=== PATIENT | female | born 1955 | race Caucasian/White ===

== ENCOUNTER → 2016-07-15 | Outpatient (CLI) | payer MEDICARE, MEDICAID | LOC: RAD 12:28 | PROVIDERS: ATTEND Urology | DX: R31.0 Gross hematuria (principal) | CPT/HCPCS: 74176 ==

== ENCOUNTER → 2016-07-20 | Outpatient (CLI) | payer MEDICARE, MEDICAID ==
[2016-07-20 08:07] LABS: ABSOLUTE BASOPHILS # (AUTO) 0.1 10^3/uL (0.0-0.2); ABSOLUTE EOSINOPHILS # (AUTO) 0.1 10^3/uL (0.0-0.6); ABSOLUTE LYMPHOCYTES (AUTO) 1.8 10^3/uL (0.5-4.7); ABSOLUTE MONOCYTES (AUTO) 0.7 10^3/uL (0.1-1.4); ABSOLUTE NEUT (AUTO) 3.5 10^3/uL (1.7-8.2); BASOPHILS % (AUTO) 0.9 % (0-2); EOSINOPHILS % (AUTO) 1.9 % (0-6); HEMOGLOBIN 14.6 g/dL (12.0-15.5); HGB HCT DIFFERENCE 0.8; LYMPHOCYTES % (AUTO) 28.9 % (13-45); MEAN CORPUSCULAR HEMOGLOBIN 29.3 pg (27.0-33.4); MEAN CORPUSCULAR HGB CONC 33.8 g/dL (32.0-36.0); MEAN CORPUSCULAR VOLUME 87 fl (80-97); MONOCYTES % (AUTO) 11.2 % (3-13); RED BLOOD COUNT 4.97 10^6/uL (3.72-5.28); SEGMENTED NEUTROPHILS % (AUTO) 57.1 % (42-78); WHITE BLOOD COUNT 6.1 10^3/uL (4.0-10.5)
[2016-07-20 08:27] LABS: ALANINE AMINOTRANSFERASE 42 U/L (9-52); ALBUMIN 4.2 g/dL (3.5-5.0); ALKALINE PHOSPHATASE 85 U/L (38-126); ANION GAP 12 (5-19); ASPARTATE AMINO TRANSFERASE 28 U/L (14-36); BILIRUBIN,DIRECT 0.4 mg/dL (0.0-0.4); BILIRUBIN,TOTAL 0.7 mg/dL (0.2-1.3); BLOOD UREA NITROGEN 20 mg/dL (7-20); CALCIUM 10.1 mg/dL (8.4-10.2); CARBON DIOXIDE 29 mmol/L (22-30); CHLORIDE 105 mmol/L (98-107); CHOLESTEROL 168.26 mg/dL (0-200); CREATININE RESULT 0.72 mg/dL (0.52-1.25); Direct HDL 54 mg/dL (>40); GLUCOSE 98 mg/dL (75-110); POTASSIUM 4.7 mmol/L (3.6-5.0); SODIUM 146.1 mmol/L (137-145); TOTAL PROTEIN 6.8 g/dL (6.3-8.2); TRIGLYCERIDES 62 mg/dL (<150)
[2016-07-20 08:38] LABS: DIRECT LDL 94 mg/dL (<100)
== END ==
LOC: OD 07:16
PROVIDERS: ATTEND Internal Medicine
DX: E78.5 Hyperlipidemia, unspecified (principal); I10 Essential (primary) hypertension; J44.9 Chronic obstructive pulmonary disease, unspecified; R53.83 Other fatigue
CPT/HCPCS: 36415; 80053; 80061; 84443; 85025

== ENCOUNTER → 2016-07-28 | Outpatient (CLI) | payer MEDICARE, MEDICAID | LOC: OD 16:15 | PROVIDERS: ATTEND Internal Medicine Pulmonary Disease | DX: J44.9 Chronic obstructive pulmonary disease, unspecified (principal) | CPT/HCPCS: 71020 ==

== ENCOUNTER 2016-08-01 21:29 | Emergency (ER) | payer MEDICARE, MEDICAID ==
[2016-08-01] MEDS ORDERED: IPRATROPIUM/ALBUTEROL 0.5-2.5 MG/3 ML AMPUL NEB ONE (22:51)
--- NOTE | 2016-08-01 23:09 | ER Document Report ---
ED General - General Chief Complaint: Urinary Problem Stated Complaint: BREATHING DIFFICULTY,CONGESTION,URINARY RETENTION Time Seen by Provider: 08/01/16 22:30 Notes: Patient is a 61-year-old female who presents with complaint of difficulty urinating. Patient says approximately 3 and half weeks ago she had hematuria. She went to urgent care. They referred her to urologist. When she saw Dr. Gomez, urologist, her hematuria cleared but she still having symptoms of urinary urgency. There is no signs of infection or blood in her urine. He said different CT scan. CT scans performed on July 15 was read as normal. She 's was to follow-up with him on Tuesday and he is going to inject the dye into her urine and do further testing to figure out why she's having her symptoms. Patient currently says she feels the for bladder is full and she is not able to urinate much except for small amounts that time. She also feels as if she is becoming swollen the abdomen. She also has history of chronic lung disease with COPD. She's on 4 L of oxygen at home. She was recently placed on steroids by tab machine operator and told she has early pneumonia and was started on doxycycline and another antibiotic. She feels less if she is retaining fluid. She's currently on Lasix 10 mg every morning. TRAVEL OUTSIDE OF THE [place] IN LAST 30 DAYS: No - Related Data Allergies/Adverse Reactions: asparaginase [Asparaginase] Allergy (Severe, Verified 04/25/14 14:17) throat swells cefaclor [From Ceclor] Allergy (Severe, Verified 04/25/14 14:17) hives,swell levofloxacin [From Levaquin] Allergy (Severe, Verified 04/25/14 14:17) bakers cyst behind knee nickel [Nickel] Allergy (Severe, Verified 04/25/14 14:17) itch,swell cephalexin monohydrate [From Keflex] Allergy (Verified 06/08/13 13:55) codeine [Codeine] Allergy (Verified 06/08/13 13:55) fluticasone propionate [From Advair Diskus] Allergy (Verified 06/08/13 13:55) morphine [Morphine] Allergy (Verified 06/08/13 13:55) Penicillins Allergy (Verified 06/08/13 13:55) salmeterol xinafoate [From Advair Diskus] Allergy (Verified 06/08/13 13:55) Sulfa (Sulfonamide Antibiotics) Allergy (Verified 06/08/13 13:55) z sloane Allergy (Severe, Uncoded 04/25/14 14:17) throat swells Past Medical History - Social History Smoking Status: Former Smoker Frequency of alcohol use: None Drug Abuse: None Family History: None - Past Medical History Cardiac Medical History: Reports: Hx Congestive Heart Failure Denies: Hx Coronary Artery Disease, Hx Heart Attack, Hx Hypertension Pulmonary Medical History: Reports: Hx Asthma, Hx Bronchitis, Hx COPD - O2 3 liters daily, Hx Pneumonia Neurological Medical History: Denies: Hx Cerebrovascular Accident, Hx Seizures Renal/ Medical History: Denies: Hx Peritoneal Dialysis Musculoskeltal Medical History: Reports Hx Arthritis Past Surgical History: Reports: Hx Section, Hx Orthopedic Surgery, Hx Tonsillectomy - Immunizations Hx Diphtheria, Pertussis, Tetanus Vaccination: Yes Hx Pneumococcal Vaccination: 04/21/94 Review of Systems - Review of Systems Notes: My Normal Review Basic REVIEW OF SYSTEMS: CONSTITUTIONAL : Denies fever, chills, or sweats. Denies recent illness. EENT: Denies eye, ear, throat, or mouth pain or symptoms. Denies nasal or sinus congestion. CARDIOVASCULAR: Denies chest pain. RESPIRATORY: Cough. GASTROINTESTINAL: Denies abdominal pain. Denies nausea, vomiting, or diarrhea. Denies constipation. Last BM: GENITOURINARY: Urinary frequency. Hematuria. MUSCULOSKELETAL: Denies neck or back pain or joint pain or swelling. SKIN: Denies rash or skin lesions. NEUROLOGICAL: Denies altered mental status or loss of consciousness. Denies headache. Denies weakness or paralysis or loss of use of either side. Denies problems with gait or speech. Denies sensory or motor loss. ALL OTHER SYSTEMS REVIEWED AND NEGATIVE. Physical Exam - Vital signs Vitals: Resp Pulse Ox 20 93 08/01/16 23:03 08/01/16 23:03 - Notes Notes: General Appearance: Well nourished, alert, cooperative, no acute distress, no obvious discomfort. Vitals: reviewed, See vital signs table. Head: no swelling or tenderness to the head Eyes: PERRL, EOMI, Conjuctiva clear Mouth: No decreasd moisture Throat: No tonsillar inflammation, No airway obstruction, No lymphadenopathy Neck: Supple, no neck tenderness, No thyromegaly Lungs: Diffuse wheezing, No rales, No rhonci, No accessory muscle use, good air exchange bilaterally. Heart: Normal rate, Regular rythm, No murmur, no rub Abdomen: Normal BS, soft, No rigidity, mild suprapubic abdominal tenderness, No guarding, no rebound, no abdominal masses, no organomegaly Extremities: strength 5/5 in all extremities, good pulses in all extremities, no swelling or tenderness in the extremities, bilateral 1+ lower extremity edema. Skin: warm, dry, appropriate color, no rash Neuro: speech clear, oriented x 3, normal affect, responds appropriately to questions. Course - Vital Signs Vital signs: Temp Pulse Resp BP Pulse Ox 16 123/86 H 94 08/02/16 04:01 08/02/16 04:01 08/02/16 04:01 - Laboratory Result Diagrams: 08/01/16 23:47 08/01/16 23:47 Laboratory results interpreted by me: 08/01/16 08/01/16 08/02/16 23:47 23:47 02:46 WBC 10.7 H RDW 14.1 H Seg Neutrophils % 85.1 H Lymphocytes % 10.3 L Absolute Neutrophils 9.1 H BUN 26 H Glucose 139 H Urine Nitrite POSITIVE H Urine Urobilinogen 2.0 H Urine Ascorbic Acid 40 H - Transfer of Care Notes: 08/02/16 05:39 Patient's urinalysis only shows blood. I did do a bedside ultrasound and she did not have a lot of urine in her bladder. I do not think she's actually retaining. She does have symptoms which she feels that she's retaining and has bladder spasms she had does not appear that she is actually returning. She'll follow up appointment with urologist tomorrow. I did offer labs so that she can bring them to her appointment to see her urologist tomorrow. Patient's lung fleming initially were wheezing and rhonchorous. After one breathing treatment they did clear. Chest x-ray shows no evidence of pneumonia. At this time I feel patient is safe to be discharged home. Encourage her to return to ER shows worsening of her symptoms or feels unwell. Patient has had some small mild fluid retention. She has some edema in her lower extremities. She has noticed this change in last week. She is on 10 mg of Lasix every morning. I will increase it to 20 mg every morning and have her follow-up with her primary care doctor for reevaluation. Discharge - Discharge Clinical Impression: Urinary frequency Dyspnea Qualifiers: Dyspnea type: unspecified Qualified Code(s): R06.00 - Dyspnea, unspecified COPD (chronic obstructive pulmonary disease) Qualifiers: COPD type: unspecified COPD Qualified Code(s): J44.9 - Chronic obstructive pulmonary disease, unspecified Condition: Good Disposition: HOME, SELF-CARE Additional Instructions: Please return to the ER immediately if you develop worsening pain, fevers, worsening difficulty breathing, or feel unwell. Please follow up with Dr. Gomez on Tuesday as scheduled. Do not take the Azo when taking the Pyridium. Increase your Lasix to 20mg a day. Prescriptions: Furosemide [Lasix 20 mg Tablet] 20 mg PO QAM #14 tablet Phenazopyridine HCl [Pyridium 200 mg Tablet] 200 mg PO TID #9 tablet Referrals: ANA HUNTLEY MD [Primary Care Provider] - Follow up in 3-5 days
[2016-08-02] LABS: ABSOLUTE BASOPHILS # (AUTO) 0.1 10^3/uL (0.0-0.2); ABSOLUTE LYMPHOCYTES (AUTO) 1.1 10^3/uL (0.5-4.7); ABSOLUTE MONOCYTES (AUTO) 0.4 10^3/uL (0.1-1.4); ABSOLUTE NEUT (AUTO) 9.1 10^3/uL (1.7-8.2); BASOPHILS % (AUTO) 0.6 % (0-2); HEMATOCRIT 43.6 % (36.0-47.0); HEMOGLOBIN 14.5 g/dL (12.0-15.5); HGB HCT DIFFERENCE -0.1; LYMPHOCYTES % (AUTO) 10.3 % (13-45); MEAN CORPUSCULAR HEMOGLOBIN 28.7 pg (27.0-33.4); MEAN CORPUSCULAR HGB CONC 33.2 g/dL (32.0-36.0); MEAN CORPUSCULAR VOLUME 86 fl (80-97); RED BLOOD COUNT 5.04 10^6/uL (3.72-5.28); RED CELL DISTRIBUTION WIDTH 14.1 % (11.5-14.0); SEGMENTED NEUTROPHILS % (AUTO) 85.1 % (42-78); WHITE BLOOD COUNT 10.7 10^3/uL (4.0-10.5)
[2016-08-02 00:19] LABS: CALCIUM 9.9 mg/dL (8.4-10.2); GLUCOSE 139 mg/dL (75-110)
[2016-08-02 00:20] LABS: ANION GAP 10 (5-19); BLOOD UREA NITROGEN 26 mg/dL (7-20); CARBON DIOXIDE 28 mmol/L (22-30); CHLORIDE 106 mmol/L (98-107); CREATININE RESULT 0.73 mg/dL (0.52-1.25); POTASSIUM 4.2 mmol/L (3.6-5.0); SODIUM 144.3 mmol/L (137-145)
[2016-08-02 03:20] LABS: APPEARANCE,URINE CLEAR; BILIRUBIN,URINE NEGATIVE (NEGATIVE); GLUCOSE, URINE NEGATIVE (NEGATIVE); KETONES,URINE NEGATIVE (NEGATIVE); LEUKOCYTE ESTERASE,URINE NEGATIVE (NEGATIVE); NITRITE,URINE POSITIVE (NEGATIVE); PROTEIN,URINE NEGATIVE (NEGATIVE)
[2016-08-02] MEDS ORDERED: FUROSEMIDE 20 MG TABLET PO ONE (03:21)
[2016-08-02 05:24] VITALS: BP 123/86
== END 2016-08-02 03:50 | disposition home or self-care (01) ==
LOC: ER 21:29
DX: R35.0 Frequency of micturition (principal); J44.9 Chronic obstructive pulmonary disease, unspecified; Z99.81 Dependence on supplemental oxygen; R31.9 Hematuria, unspecified; R39.15 Urgency of urination; R05 Cough; I50.9 Heart failure, unspecified; Z79.899 Other long term (current) drug therapy; Z88.1 Allergy status to other antibiotic agents; Z88.5 Allergy status to narcotic agent; Z88.8 Allergy status to other drugs, medicaments and biological substances; Z88.0 Allergy status to penicillin; Z88.2 Allergy status to sulfonamides
CPT/HCPCS: 94640; 99285; 36415; 85025; 80048; 81001; 71010; A9270 ×2; J7620

== ENCOUNTER → 2016-08-02 | Outpatient (CLI) | payer MEDICARE, MEDICAID | LOC: OD 10:49 | PROVIDERS: ATTEND Family Medicine Geriatric Medicine | DX: R94.6 Abnormal results of thyroid function studies (principal); Z79.899 Other long term (current) drug therapy | CPT/HCPCS: 36415; 84443 ==

== ENCOUNTER 2016-08-06 03:09 | Emergency (ER) | payer MEDICARE, MEDICAID ==
[2016-08-06 04:11] LABS: APPEARANCE,URINE CLEAR; BILIRUBIN,URINE NEGATIVE (NEGATIVE); GLUCOSE, URINE NEGATIVE (NEGATIVE); KETONES,URINE NEGATIVE (NEGATIVE); LEUKOCYTE ESTERASE,URINE NEGATIVE (NEGATIVE); NITRITE,URINE POSITIVE (NEGATIVE); PROTEIN,URINE NEGATIVE (NEGATIVE); URINE SPECIFIC GRAVITY 1.008
[2016-08-06 06:25] LABS: ABSOLUTE BASOPHILS # (AUTO) 0.1 10^3/uL (0.0-0.2); ABSOLUTE LYMPHOCYTES (AUTO) 1.7 10^3/uL (0.5-4.7); ABSOLUTE MONOCYTES (AUTO) 1.6 10^3/uL (0.1-1.4); ABSOLUTE NEUT (AUTO) 12.1 10^3/uL (1.7-8.2); BASOPHILS % (AUTO) 0.3 % (0-2); EOSINOPHILS % (AUTO) 0.1 % (0-6); HEMATOCRIT 46.3 % (36.0-47.0); HEMOGLOBIN 15.2 g/dL (12.0-15.5); HGB HCT DIFFERENCE -0.7; LYMPHOCYTES % (AUTO) 10.8 % (13-45); MEAN CORPUSCULAR HEMOGLOBIN 28.6 pg (27.0-33.4); MEAN CORPUSCULAR HGB CONC 32.8 g/dL (32.0-36.0); MEAN CORPUSCULAR VOLUME 87 fl (80-97); MONOCYTES % (AUTO) 10.3 % (3-13); RED BLOOD COUNT 5.31 10^6/uL (3.72-5.28); RED CELL DISTRIBUTION WIDTH 13.8 % (11.5-14.0); SEGMENTED NEUTROPHILS % (AUTO) 78.5 % (42-78); WHITE BLOOD COUNT 15.4 10^3/uL (4.0-10.5)
[2016-08-06 06:36] LABS: PROTHROMBIN TIME 12.8 SEC (11.4-15.4)
[2016-08-06 06:41] LABS: ALANINE AMINOTRANSFERASE 43 U/L (9-52); ALBUMIN 4.4 g/dL (3.5-5.0); ALKALINE PHOSPHATASE 118 U/L (38-126); ANION GAP 12 (5-19); ASPARTATE AMINO TRANSFERASE 34 U/L (14-36); BILIRUBIN,DIRECT 0.1 mg/dL (0.0-0.4); BILIRUBIN,TOTAL 0.9 mg/dL (0.2-1.3); BLOOD UREA NITROGEN 22 mg/dL (7-20); CALCIUM 9.9 mg/dL (8.4-10.2); CARBON DIOXIDE 28 mmol/L (22-30); CHLORIDE 99 mmol/L (98-107); CREATININE RESULT 1.16 mg/dL (0.52-1.25); GLUCOSE 100 mg/dL (75-110); POTASSIUM 4.1 mmol/L (3.6-5.0); SODIUM 139.2 mmol/L (137-145); TOTAL PROTEIN 7.1 g/dL (6.3-8.2)
[2016-08-06] MEDS ORDERED: FENTANYL CITRATE INJ/PF 100 MCG/2 ML AMPUL IV ONE (08:08)
[2016-08-06] MEDS ORDERED: ONDANSETRON HCL INJ/PF 4 MG/2 ML SDV IV ONE (08:08)
[2016-08-06] MEDS ORDERED: NORMAL SALINE 1000 ML 1,000 ML IV ONE (08:08)
[2016-08-06] MEDS ORDERED: KETOROLAC TROMETHAMINE INJ/PF 30 MG/1 ML SDV IV ONE (08:23)
--- NOTE | 2016-08-06 08:43 | ER Document Report ---
ED General - General Chief Complaint: Flank Pain Stated Complaint: FLANK PAIN Time Seen by Provider: 08/06/16 05:17 Mode of Arrival: Ambulatory Information source: Patient Notes: Patient presents to the emergency department with complaints of severe left- sided flank pain that woke her up this morning at 145. Patient gives history of hematuria that started ~ 3 weeks ago. She reports she went to an urgent care who referred her to urologist. She has been seen by Dr. Gomez her urologist. Hematuria had cleared but she is still having symptoms of urinary urgency. She reports urinary incontinence for the past [address] Gomez did a [place] CT scan and was basically normal although diverticulosis was noted. She was also also evaluated by her cell support operator instructions she had early pneumonia and was placed on doxycycline and steroids. Patient reports she is just finishing up steroids. She was evaluated on 08/01 for UTI symptoms here in the emergency department. UA showed positive nitrite only 2 WBCs. Patient reports this morning she woke up with severe left-sided flank pain. She reports recently she has had trouble voiding experience urinary frequency with a feeling of pressure/swelling in her vaginal area. She also reports that she has to change positions to avoid. She denies fever but reports nausea and vomiting. She reports that diarrhea off and on. Patient also reports history of low back pain and recent CT showed fractured lumbar. She is waiting for MRI for that. No c/o numbness or tingling, reports chronic urinary incontinence for over 30 years. TRAVEL OUTSIDE OF THE [place] IN LAST 30 DAYS: No - HPI Onset: This morning Onset/Duration: Sudden Quality of pain: Pressure Severity: Severe Pain Level: 5 Associated symptoms: Nausea, Vomiting Exacerbated by: Denies Relieved by: Denies Similar symptoms previously: Yes Recently seen / treated by doctor: Yes - Related Data Allergies/Adverse Reactions: asparaginase [Asparaginase] Allergy (Severe, Verified 04/25/14 14:17) throat swells cefaclor [From Ceclor] Allergy (Severe, Verified 04/25/14 14:17) hives,swell levofloxacin [From Levaquin] Allergy (Severe, Verified 04/25/14 14:17) bakers cyst behind knee nickel [Nickel] Allergy (Severe, Verified 04/25/14 14:17) itch,swell ampicillin Allergy (Verified 08/06/16 03:22) azithromycin Allergy (Verified 08/06/16 03:22) cephalexin monohydrate [From Keflex] Allergy (Verified 06/08/13 13:55) codeine [Codeine] Allergy (Verified 06/08/13 13:55) fluticasone propionate [From Advair Diskus] Allergy (Verified 06/08/13 13:55) morphine [Morphine] Allergy (Verified 06/08/13 13:55) moxifloxacin [From Avelox] Allergy (Verified 08/06/16 03:22) Penicillins Allergy (Verified 06/08/13 13:55) salmeterol xinafoate [From Advair Diskus] Allergy (Verified 06/08/13 13:55) Sulfa (Sulfonamide Antibiotics) Allergy (Verified 06/08/13 13:55) sulfamethoxazole [From Bactrim] Allergy (Verified 08/06/16 03:22) trimethoprim [From Bactrim] Allergy (Verified 08/06/16 03:22) Past Medical History - General Information source: Patient - Social History Smoking Status: Unknown if Ever Smoked Cigarette use (# per day): No Frequency of alcohol use: None Drug Abuse: None Lives with: Family Family History: None Patient has suicidal ideation: No Patient has homicidal ideation: No - Past Medical History Cardiac Medical History: Reports: Hx Congestive Heart Failure Denies: Hx Coronary Artery Disease, Hx Heart Attack, Hx Hypertension Pulmonary Medical History: Reports: Hx Asthma, Hx Bronchitis, Hx COPD - O2 3 liters daily, Hx Pneumonia Neurological Medical History: Denies: Hx Cerebrovascular Accident, Hx Seizures Renal/ Medical History: Denies: Hx Peritoneal Dialysis Musculoskeltal Medical History: Reports Hx Arthritis Past Surgical History: Reports: Hx Section, Hx Orthopedic Surgery, Hx Tonsillectomy - Immunizations Hx Diphtheria, Pertussis, Tetanus Vaccination: Yes Hx Pneumococcal Vaccination: 04/21/94 Review of Systems - Review of Systems Notes: Review HPI for review of systems., All other systems negative Physical Exam - Vital signs Vitals: Temp Pulse Resp BP Pulse Ox 98.6 F 97 20 154/100 H 91 L 08/06/16 03:15 08/06/16 03:15 08/06/16 03:15 08/06/16 03:15 08/06/16 03:15 - Notes Notes: PHYSICAL EXAMINATION: GENERAL: Looks in extreme pain HEAD: Atraumatic, normocephalic. EYES: Pupils equal round and reactive to light, extraocular movements intact, sclera anicteric, conjunctiva are normal. ENT: nares patent, oropharynx clear without exudates. Moist mucous membranes. NECK: Normal range of motion, supple without lymphadenopathy LUNGS: CTAB and equal. No wheezes rales or rhonchi. HEART: Regular rate and rhythm without murmurs ABDOMEN: Soft, no tenderness. No guarding, no rebound BACK: left flank pain EXTREMITIES: Normal range of motion, no pitting edema. No cyanosis. NEUROLOGICAL: Cranial nerves grossly intact. Normal sensory/motor exams. PSYCH: Normal mood, normal affect. SKIN: Warm, Dry, normal turgor, no rashes or lesions noted - Genitourinary External exam: Normal, Other - No obvious swelling noted, was dribbling urine during the exam. Course - Re-evaluation Re-evalutation: 08/06/[address] Guerrero per [facility] guidelines. Reviewed patient's past visits. Reviewed past CT. He is advised to repeat a CT. Contacted the radiologist regarding CT with oral contrast to evaluate possible diverticulitis. He reports that they can probably get a good enough picture without oral or IV contrast. Patient insisted she was allergic to multiple medications. I reviewed the [place] controlled substance reporting system and noted she received Percocet. I discussed this with patient and she remembered that she has had that without any allergic reaction. Patient was given Percocet and within 45 minutes she was very comfortable happy smiling. WBC 15. UA notes positive nitrite but only 1 WBC urine culture sent. A quick vaginal exam (no speculum) was done to evaluate for possible prolapsed bladder. Some swelling noted. Patient was instructed to follow-up with her LINE UP MACHINE OPERATOR for routine Pap smear and evaluation for urinary incontinence. Patient reports she has been incontinent of urine for 30 years. Patient feels much better after Percocet drinking p.o. fluids without problems. Patient instructed on kidney stones. Patient instructed on pain medication go home with urine strainer and follow-up with urology on Tuesday. Due to patient's multiple allergies I did not prescribe Flomax. Kidney stones are very small should pass without problems. Patient was instructed if she started having fever increased pain or concerns to come back immediately she verbalized understanding. - Vital Signs Vital signs: Temp Pulse Resp BP Pulse Ox 98.8 F 93 18 102/65 92 08/06/16 10:50 08/06/16 10:50 08/06/16 10:50 08/06/16 10:50 08/06/16 10:50 - Laboratory Result Diagrams: 08/06/16 06:01 08/06/16 06:01 Laboratory results interpreted by me: 08/06/16 08/06/16 08/06/16 03:45 06:01 06:01 WBC 15.4 H RBC 5.31 H Seg Neutrophils % 78.5 H Lymphocytes % 10.8 L Absolute Neutrophils 12.1 H Absolute Monocytes 1.6 H BUN 22 H Est GFR ( Amer) 57 L Est GFR (Non-Af Amer) 47 L Urine Nitrite POSITIVE H Urine Urobilinogen 4.0 H Urine Ascorbic Acid 40 H - Diagnostic Test Radiology reviewed: Image reviewed, Reports reviewed - CT shows calculi at the left ureteral vascular junction measuring 2 mm and 4 mm moderate hydroureter nephrosis and hydroureter with perinephric edema Colonic diverticulosis no diverticulitis, persistent atelectasis in the left lung base. Discharge - Discharge Clinical Impression: Flank pain, Kidney stone on left side Condition: Stable Disposition: HOME, SELF-CARE Instructions: Toradol Injection ([facility]), Intravenous (IV) Fluids ([facility]), Kidney Stone ([facility]), Oral Narcotic Medication ([facility]) Additional Instructions: *You have been evaluated for flank pain, kidney stone *Take medication as prescribed for pain *Strain your urine *Push fluids *Monitoring your temperature *Follow up with your urologist Tuesday for recheck *Follow up with Dr Soler for recheck within the next 5 days *Return to ED for worsening condition, changes, needs, fever, increasing pain Prescriptions: Oxycodone HCl/Acetaminophen [Percocet 5-325 mg Tablet] 1 - 2 tab PO ASDIR PRN # 15 tablet PRN Reason: Referrals: ANA HUNTLEY MD [Primary Care Provider] - Follow up in 3-5 days
[2016-08-06] MEDS ORDERED: OXYCODONE HCL IR 5 MG TABLET PO ONE (09:12)
[2016-08-06] MEDS ORDERED: IPRATROPIUM/ALBUTEROL 0.5-2.5 MG/3 ML AMPUL NEB ONE (09:52)
[2016-08-06 12:49] VITALS: BP 119/76
== END 2016-08-06 12:19 | disposition home or self-care (01) ==
LOC: ER 03:09
DX: N20.0 Calculus of kidney (principal); R10.9 Unspecified abdominal pain; R11.2 Nausea with vomiting, unspecified; I50.9 Heart failure, unspecified; J45.909 Unspecified asthma, uncomplicated; J44.9 Chronic obstructive pulmonary disease, unspecified; Z99.81 Dependence on supplemental oxygen; Z88.3 Allergy status to other anti-infective agents; Z88.6 Allergy status to analgesic agent; Z88.2 Allergy status to sulfonamides
CPT/HCPCS: 94640; 99284; 96361; 96374; 96375; 36415; 87086; 85025; 85610; 87088; 80053; 81001; 87186; 83605; 74176; J1885; J2405; J7030; A9270 ×2; J7620

== ENCOUNTER → 2016-08-10 | Outpatient (CLI) | payer MEDICARE, MEDICAID ==
[2016-08-10 14:37] LABS: APPEARANCE,URINE SLIGHTLY-CLOUDY; BILIRUBIN,URINE NEGATIVE (NEGATIVE); GLUCOSE, URINE NEGATIVE (NEGATIVE); KETONES,URINE NEGATIVE (NEGATIVE); LEUKOCYTE ESTERASE,URINE NEGATIVE (NEGATIVE); NITRITE,URINE NEGATIVE (NEGATIVE); PROTEIN,URINE NEGATIVE (NEGATIVE); URINE SPECIFIC GRAVITY 1.027; UROBILINOGEN,URINE NEGATIVE mg/dL (<2.0)
== END ==
LOC: OD 11:58
PROVIDERS: ATTEND Urology
DX: R31.29 Other microscopic hematuria (principal)
CPT/HCPCS: 36415; 81001

== ENCOUNTER → 2016-08-10 | Outpatient (CLI) | payer MEDICARE, MEDICAID ==
[2016-08-10 10:51] LABS: ARTERIAL BLOOD BASE EXCESS 4.2 mmol/L; ARTERIAL BLOOD O2 SATURATION 94.2 % (94-98)
[2016-08-11 08:33] LABS: FOLLICLE STIMULATING HORMONE 82.9 mIU/mL (.); LUTEINIZING HORMONE 25.2 mIU/mL (.); PROLACTIN 10.7 ng/mL (4.8-23.3)
== END ==
LOC: OD 09:46
PROVIDERS: ATTEND Internal Medicine Pulmonary Disease
DX: N64.52 Nipple discharge (principal); J96.10 Chronic respiratory failure, unspecified whether with hypoxia or hypercapnia
CPT/HCPCS: 36600; 82803; 83001; 83002; 84146

== ENCOUNTER → 2016-08-17 | Outpatient (CLI) | payer MEDICARE, MEDICAID ==
--- NOTE | 2016-08-18 08:14 | WOMENS IMAGING REPORT ---
EXAM DESCRIPTION: BILAT SCREENING MAMMO W/CAD COMPLETED DATE/TIME: 08/17/2016 12:45 pm REASON FOR STUDY: NIPPLE DISCHARGE; N64.52 Z12.31 ENCNTR SCREEN MAMMOGRAM FOR MALIGNANT NEOPLASM OF EDGAR COMPARISON: 2014 TECHNIQUE: Standard craniocaudal and mediolateral oblique views of each breast recorded using FohBoha l acquisition. LIMITATIONS: None. FINDINGS: No masses, calcifications or architectural distortion. No areas of suspicion. Read with the assistance of CAD. .[facility] - R2 Cenova Version 1.3 .[facility] Imaging - R2 Cenova Version 1.3 .[facility] Imaging - R2 Cenova Version 2.4 .[facility] - R2 Cenova Version 2.4 .[facility] - R2 Mineralogy Teacher Version 9.2 IMPRESSION: NORMAL MAMMOGRAM. BIRADS 1. BREAST DENSITY: b. There are scattered areas of fibroglandular density. BIRAD: 1 NEGATIVE RECOMMENDATION: Consider additional breast imaging if concern for nipple discharge. COMMENT: The patient has been notified of the results by letter per [place] requirements. Additional no tification policies are in place for contacting patient with suspicious or incomplete findings. Quality ID #[id number]: The [employer] recommends an annual screening mammogram for women aged 40 years or over. This facility utilizes a reminder system to ensure that all patients receive reminder letters, and/or direct phone calls for appointments. This includes reminders for routine scr eening mammograms, diagnostic mammograms, or other Breast Imaging Interventions when appropriate. Th is patient will be placed in the appropriate reminder system. The [employer] (ACR) has developed recommendations for screening MRI of the breast s in certain patient populations, to be used in conjunction with mammography. Breast MRI surveillanc e may be appropriate for women with more than 20% lifetime risk of developing breast cancer as deter mined by genetic testing, significant family history of the disease, or history of mantle radiation f or Hodgkins Disease. ACR Practice Guidelines 2008. TECHNICAL DOCUMENTATION: FINDING NUMBER: (1) ASSESSMENT: (1) JOB ID: [id number] [employer]- All Rights Reserved
== END ==
LOC: WI 13:55
PROVIDERS: ATTEND Internal Medicine Pulmonary Disease
DX: Z12.31 Encounter for screening mammogram for malignant neoplasm of breast (principal)
CPT/HCPCS: 77067; G0202

== ENCOUNTER 2016-08-31 05:44 | Day surgery (SDC) | payer MEDICARE, MEDICAID ==
--- NOTE | 2016-08-25 10:29 | HISTORY AND PHYSICAL E ---
History and Physical NAME: MIKI FROST : 1955 AGE: 61Y ADMITTED: 08/31/2016 ROOM: REFERRING PROVIDERS: The patient presented from: 1. HOWIE OCLEMAN M.D. - [facility]. HISTORY: Patient to be done in the OR. She does have a history of COPD, severe, oxygen. MEDICATIONS: The patient's medications are: 1. Symbicort. 2. EpiPen as needed. 3. Acetylcysteine. 4. Albuterol. 5. Amitriptyline 6. Theophylline. 7. Ventolin. 8. Zetia. 9. Prednisone. FAMILY HISTORY: Her mom has a history of colon cancer in past. Her dad had cardiac disease. REVIEW OF SYSTEMS: RENAL: Kidney stones. GASTROINTESTINAL: History of polyps. ONCOLOGIC/HEMATOLOGIC: Negative. NEUROLOGIC/PSYCHIATRIC: Anxiety. MUSCULOSKELETAL: . Fracture lower back. PHYSICAL EXAMINATION: GENERAL: Pleasant, alert, oriented, referred by Dr. Mensah, Dr. Coleman. VITAL SIGNS: Blood pressure 120/90, pulse 80, respirations 18, temp is 98. HEAD, EYES, EARS, NOSE, THROAT: Normal. NECK: Supple. LUNGS: Clear. ABDOMEN: Soft. NEUROLOGIC: Exam negative. CONCLUSION: 1. Colon screening. 2. COPD. The patient is no prednisone. PLAN: She needs 100 mg hydrocortisone IV division supervisor for colonoscopy in the OR with anesthesia standby. Plan colon exam, admit 08/31. DICTATING PHYSICIAN: RICK MOHAN M.D. [id number] PHY#: [id number] ID: [id number] JOB#: [id number] ACCT: [id number] cc:HOWIE COLEMAN M.D. Marisela CHOE M.D. >
--- NOTE | 2016-08-27 11:02 | EKG REPORT ---
SEVERITY:- OTHERWISE NORMAL ECG - SINUS RHYTHM LOW VOLTAGE IN FRONTAL LEADS : Confirmed by: Linda Umanzor MD 27-Aug-2016 11:01:16
--- NOTE | 2016-08-27 11:07 | RADIOLOGY REPORT (SQ) ---
EXAM DESCRIPTION: CHEST PA/LATERAL COMPLETED DATE/TIME: 08/27/2016 10:53 am REASON FOR STUDY: PRE OP COMPARISON: 08/02/2016 EXAM PARAMETERS: NUMBER OF VIEWS: two views TECHNIQUE: Digital Frontal and Lateral radiographic views of the chest acquired. RADIATION DOSE: NA LIMITATIONS: none FINDINGS: LUNGS AND PLEURA: The previously described right basilar atelectasis or scar appears stabl e. No acute consolidations are identified. No pleural effusions are identified. No pneumothorax is seen. Nonspecific prominence of the interstitial markings is again seen. MEDIASTINUM AND HILAR STRUCTURES: No masses or contour abnormalities. HEART AND VASCULAR STRUCTURES: The configuration of the heart and mediastinal structures is unchanged . BONES: No acute findings. HARDWARE: None in the chest. OTHER: No other significant finding. IMPRESSION: NO SIGNIFICANT RADIOGRAPHIC FINDING IN THE CHEST. COMMENT: No significant interval change. No acute findings. Other findings as noted above TECHNICAL DOCUMENTATION: JOB ID: [id number] [employer]- All Rights Reserved
[2016-08-27 11:28] LABS: ABSOLUTE LYMPHOCYTES (AUTO) 1.5 10^3/uL (0.5-4.7); ABSOLUTE MONOCYTES (AUTO) 0.6 10^3/uL (0.1-1.4); ABSOLUTE NEUT (AUTO) 4.5 10^3/uL (1.7-8.2); BASOPHILS % (AUTO) 0.7 % (0-2); EOSINOPHILS % (AUTO) 0.7 % (0-6); HEMATOCRIT 43.5 % (36.0-47.0); HEMOGLOBIN 14.5 g/dL (12.0-15.5); LYMPHOCYTES % (AUTO) 22.9 % (13-45); MEAN CORPUSCULAR HEMOGLOBIN 29.3 pg (27.0-33.4); MEAN CORPUSCULAR HGB CONC 33.2 g/dL (32.0-36.0); MEAN CORPUSCULAR VOLUME 88 fl (80-97); MONOCYTES % (AUTO) 8.4 % (3-13); RED BLOOD COUNT 4.94 10^6/uL (3.72-5.28); RED CELL DISTRIBUTION WIDTH 14.8 % (11.5-14.0); SEGMENTED NEUTROPHILS % (AUTO) 67.3 % (42-78); WHITE BLOOD COUNT 6.6 10^3/uL (4.0-10.5)
[2016-08-27 11:56] LABS: ANION GAP 14 (5-19); BLOOD UREA NITROGEN 11 mg/dL (7-20); CALCIUM 9.8 mg/dL (8.4-10.2); CARBON DIOXIDE 28 mmol/L (22-30); CHLORIDE 102 mmol/L (98-107); CREATININE RESULT 0.62 mg/dL (0.52-1.25); GLUCOSE 97 mg/dL (75-110); POTASSIUM 3.7 mmol/L (3.6-5.0); SODIUM 144.4 mmol/L (137-145)
[~2016-08-31 05:44] MED LIST: HYDROCORTISONE SOD SUCCINATE INJ/PF 100 MG/2 ML SDV IV PRN; LACTATED RINGERS 1000 ML IV PRN; LIDOCAINE 0.5% INJ-PF (5 MG/ML) 50 ML SDV SUBCUT PRN
[2016-08-31] MEDS ORDERED: HYDROCORTISONE SOD SUCCINATE INJ/PF 100 MG/2 ML SDV ONE (06:01)
[2016-08-31] MEDS ORDERED: LIDOCAINE 2% INJ-PF (20 MG/ML) 10 ML AMPUL ONE (07:15)
[2016-08-31] MEDS ORDERED: FENTANYL CITRATE INJ/PF 100 MCG/2 ML AMPUL ONE (07:16)
[2016-08-31] MEDS ORDERED: MIDAZOLAM 2 MG/2 ML INJ ONE (07:16)
[2016-08-31] MEDS ORDERED: PROPOFOL INJ 200 MG/20 ML VIAL IV ONE (07:16)
[2016-08-31] MEDS ORDERED: LIDOCAINE 2% JELLY 30 ML TUBE ONE (07:33)
[2016-08-31] MEDS ORDERED: GLUCAGON,HUMAN RECOMB 1 MG INJ ONE (07:33)
[2016-08-31] MEDS ORDERED: MEPERIDINE HCL/PF INJ 25 MG/1 ML DISP.SYRIN IV PRN (08:31)
[2016-08-31] MEDS ORDERED: FENTANYL CITRATE INJ/PF 100 MCG/2 ML AMPUL IV PRN ×3 (08:31)
[2016-08-31] MEDS ORDERED: ONDANSETRON HCL INJ/PF 4 MG/2 ML SDV IV PRN (08:31)
[2016-08-31] MEDS ORDERED: PROMETHAZINE HCL INJ 25 MG/1 ML VIAL IV PRN ×3 (08:31→09:14)
[2016-08-31] MEDS ORDERED: DIPHENHYDRAMINE HCL 50 MG/ML VIAL IV PRN (08:31)
[2016-08-31] MEDS ORDERED: LIDOCAINE 2% VISCOUS SOLN 20 ML UDCUP MM PRN (09:13)
[2016-08-31] MEDS ORDERED: ACETAMINOPHEN 325 MG TABLET PO PRN (09:14)
[2016-08-31] MEDS ORDERED: SIMETHICONE 80 MG TAB.CHEW PO PRN (09:15)
[2016-08-31 10:31] VITALS: BP 125/80
--- NOTE | 2016-08-31 11:31 | OPERATIVE REPORT E ---
Operative Report NAME: MIKI FROST : 1955 AGE: 61Y DATE OF SURGERY: 08/31/2016 ROOM: PREOPERATIVE DIAGNOSIS: Colon screening. POSTOPERATIVE DIAGNOSIS: 1. A 3 mm sessile rectal polyp, biopsy obtained. 2. Sigmoid descending colon diverticulosis. 3. Lipoma cecum. OPERATION: Colonoscopy. SURGEON: RICK MOHAN M.D. ANESTHESIA: Done in the OR with Anesthesia standby. TISSUE REMOVED OR ALTERED: Biopsy rectal polyp. PROCEDURE: Rectal exam: A small 3 mm polyp rectum, biopsy obtained. Sigmoid descending colon diverticulosis. Transverse colon normal. Ascending colon normal. Cecum shows lipoma x2. Scope withdrawn cecum, ascending, transverse, descending, sigmoid, all the way to the rectum. The rectal polyp looks like adenoma in the rectum, 3 mm, biopsy obtained. DISCHARGE PLAN: 1. Hold aspirin and nonsteroidal 3 days. 2. Awaiting biopsy results. 3. Consideration followup colonoscopy 2 years to be done in the OR with Anesthesia standby, pending biopsy results. 4. Patient discharged on soft low residue for 3 days. 5. Followup office visit in the next few days. DICTATING PHYSICIAN: RICK MOHAN M.D. [id number] PHY#: [id number] ID: [id number] JOB#: [id number] ACCT: [id number] cc:HOWIE COLEMAN M.D. Marisela CHOE M.D. >
--- NOTE | 2016-08-31 11:35 | HISTORY AND PHYSICAL E ---
History and Physical NAME: MIKI FROST : 1955 AGE: 61Y ADMITTED: 08/31/2016 ROOM: CHIEF COMPLAINT: Colon screening to be done in the OR. REFERRING PHYSICIAN: and Dr. Mensah ALLERGIES: 1. LEVAQUIN. 2. PENICILLIN. 3. KEFLEX. 4. CODEINE. 5. MORPHINE. 6. ZITHROMAX. 7. AMOXICILLIN. 8. PEANUTS. 9. SOY. 10. SHELLFISH. PAST SURGICAL HISTORY: 1. x2. 2. Patient does have history of knee replacement. 3. Colon exam 2005. FAMILY HISTORY: Father had heart disease. Mom had colon cancer. REVIEW OF SYSTEMS: CARDIAC: Negative. PULMONARY: COPD severe, pleural effusion. HEAD, EYES, EARS, NOSE, THROAT: Unremarkable. GASTROINTESTINAL: History of polyps, for colon screening. ONCOLOGY/HEMATOLOGY: Negative. MUSCULOSKELETAL: Osteoporosis. Lower back pain. PSYCHIATRIC: Anxiety. PHYSICAL EXAMINATION: VITAL SIGNS: Blood pressure 120/90, pulse 80, respirations 18, temp is 98. HEAD, EYES, EARS, NOSE, THROAT: Normal. ABDOMEN: Soft. NEUROLOGIC: Negative. CONCLUSION: Colon screening. PLAN: Done in the OR. The patient need 100 mg hydrocortisone IV prior to colonoscopy. She does need inhaler, dilator prior to colonoscopy. To be done in the OR with anesthesia standby. DICTATING PHYSICIAN: RICK MOHAN M.D. [id number] PHY#: [id number] ID: [id number] JOB#: [id number] ACCT: [id number] cc:Marisela FRIEDMAN M.D. MICHAEL JOSILEVICH, M.D. >
--- NOTE | 2016-08-31 11:38 | DISCHARGE SUMMARY E ---
Discharge Summary NAME: MIKI FROST : 1955 AGE: 61Y ADMITTED: 08/31/2016 DISCHARGED: 08/31/2016 HOSPITAL COURSE: A 61-year-old female underwent colon screening in the OR. She has severe COPD. Today's colonoscopy shows benign looking polyp in rectum, 3 mm. Biopsy obtained. Sigmoid descending colon diverticulosis, severe. Benign looking lipoma cecum. DISCHARGE PLAN: Soft low residue diet. Hold aspirin for 3 days. Awaiting biopsy results. Office visit in a few days. Patient to see us in the office early next week. Consideration followup colonoscopy in 2 years pending biopsy results. DICTATING PHYSICIAN: RICK MOHAN M.D. [id number] Y#: [id number] ID: [id number] JOB#: [id number] ACCT: [id number] cc:Marisela FRIEDMAN M.D. MICHAEL JOSILEVICH, M.D. >
== END 2016-08-31 10:10 | disposition home or self-care (01) ==
LOC: OROUT 05:44
PROVIDERS: ATTEND Specialist
PROC: 0DBP8ZX Excision of Rectum, Via Natural or Artificial Opening Endoscopic, Diagnostic (ICD-10-PCS; principal; 2016-08-31 08:00)
DX: Z12.11 Encounter for screening for malignant neoplasm of colon (principal); K63.5 Polyp of colon; D17.5 Benign lipomatous neoplasm of intra-abdominal organs; K57.30 Diverticulosis of large intestine without perforation or abscess without bleeding; Z80.0 Family history of malignant neoplasm of digestive organs; Z79.899 Other long term (current) drug therapy; Z88.1 Allergy status to other antibiotic agents; Z88.5 Allergy status to narcotic agent; Z88.0 Allergy status to penicillin; Z79.51 Long term (current) use of inhaled steroids; J90 Pleural effusion, not elsewhere classified; M81.0 Age-related osteoporosis without current pathological fracture; Z96.659 Presence of unspecified artificial knee joint; J44.9 Chronic obstructive pulmonary disease, unspecified
CPT/HCPCS: 45380; 93005; 36415 ×2; 84132; 85025; 80048; 88305 ×2; 71020; 93010; J2250; J3010; J1610; J1720; J2704; J3490; 810

== ENCOUNTER → 2016-09-01 | Outpatient (CLI) | payer MEDICARE, MEDICAID ==
--- NOTE | 2016-09-01 10:53 | RADIOLOGY REPORT (SQ) ---
EXAM DESCRIPTION: U/S RETROPERITON (RENAL/AORTA) COMPLETED DATE/TIME: 09/01/2016 10:32 am REASON FOR STUDY: HYDRONEPHROSIS WITH URINARY OBSTRUCTION DUE TO URETHRAL CALCULUS N13.2 HYDRONEPHR OSIS WITH RENAL AND URETERAL CALCULOUS OBSTR COMPARISON: None. TECHNIQUE: Dynamic and static grayscale images acquired of the kidneys and bladder and recorded on P ACS. Additional selected color Doppler and spectral images recorded. LIMITATIONS: None. FINDINGS: RIGHT KIDNEY: Normal size. Normal echogenicity. No solid or suspicious masses. No hydronep hrosis. No calcifications. LEFT KIDNEY: Normal size. Normal echogenicity. No solid or suspicious masses. No hydronephrosis. No calcifications. BLADDER: No masses. OTHER FINDINGS: No other significant finding. IMPRESSION: NORMAL RENAL AND BLADDER ULTRASOUND. TECHNICAL DOCUMENTATION: JOB ID: [id number] [employer]- All Rights Reserved
== END ==
LOC: RAD 09:41
PROVIDERS: ATTEND Urology
DX: N13.2 Hydronephrosis with renal and ureteral calculous obstruction (principal)
CPT/HCPCS: 76770

== ENCOUNTER → 2016-10-19 | Outpatient (CLI) | payer MEDICARE, MEDICAID ==
[2016-10-19 08:49] LABS: ALANINE AMINOTRANSFERASE 39 U/L (9-52); ALBUMIN 4.4 g/dL (3.5-5.0); ALKALINE PHOSPHATASE 93 U/L (38-126); ANION GAP 12 (5-19); ASPARTATE AMINO TRANSFERASE 32 U/L (14-36); BILIRUBIN,DIRECT 0.4 mg/dL (0.0-0.4); BILIRUBIN,TOTAL 0.6 mg/dL (0.2-1.3); BLOOD UREA NITROGEN 18 mg/dL (7-20); CALCIUM 9.8 mg/dL (8.4-10.2); CARBON DIOXIDE 30 mmol/L (22-30); CHLORIDE 102 mmol/L (98-107); CREATININE RESULT 0.81 mg/dL (0.52-1.25); GLUCOSE 81 mg/dL (75-110); POTASSIUM 4.1 mmol/L (3.6-5.0); SODIUM 143.6 mmol/L (137-145); TOTAL PROTEIN 6.9 g/dL (6.3-8.2)
== END ==
LOC: OD 07:49
PROVIDERS: ATTEND Family Medicine Geriatric Medicine
DX: I10 Essential (primary) hypertension (principal); E78.5 Hyperlipidemia, unspecified; Z79.899 Other long term (current) drug therapy
CPT/HCPCS: 36415; 80053

== ENCOUNTER 2016-11-02 00:26 | Inpatient (IN) | payer MEDICARE, MEDICAID ==
[2016-11-02] MEDS ORDERED: ASPIRIN 81 MG TABLET, CHEWABLE PO ONE (00:36)
--- NOTE | 2016-11-02 01:39 | RADIOLOGY REPORT (SQ) ---
EXAM DESCRIPTION: CHEST SINGLE VIEW COMPLETED DATE/TIME: 11/02/2016 1:15 am REASON FOR STUDY: cp COMPARISON: 08/27/2016. 08/02/2016. CT, 02/24/2016, 10/31/2015, 09/02/2014. EXAM PARAMETERS: NUMBER OF VIEWS: One view. TECHNIQUE: Single frontal radiographic view of the chest acquired. RADIATION DOSE: NA LIMITATIONS: None. FINDINGS: LUNGS AND PLEURA: Increased 5.3 cm left perihilar opacity. Small chronic obscuration of the right costophrenic angle. MEDIASTINUM AND HILAR STRUCTURES: No masses. Contour normal. HEART AND VASCULAR STRUCTURES: Heart normal in size. Normal vasculature. BONES: No acute findings. HARDWARE: None in the chest. OTHER: No other significant finding. IMPRESSION: Increased 5.3 cm left perihilar opacity. Differential diagnosis includes malignancy. C urrent evaluation with pre and post IV contrast CT of the chest recommended. TECHNICAL DOCUMENTATION: JOB ID: [id number]
[2016-11-02 02:06] LABS: ABSOLUTE BASOPHILS # (AUTO) 0.1 10^3/uL (0.0-0.2); ABSOLUTE EOSINOPHILS # (AUTO) 0.1 10^3/uL (0.0-0.6); ABSOLUTE LYMPHOCYTES (AUTO) 1.6 10^3/uL (0.5-4.7); ABSOLUTE NEUT (AUTO) 6.7 10^3/uL (1.7-8.2); BASOPHILS % (AUTO) 0.7 % (0-2); EOSINOPHILS % (AUTO) 0.7 % (0-6); HEMATOCRIT 43.4 % (36.0-47.0); HEMOGLOBIN 14.6 g/dL (12.0-15.5); HGB HCT DIFFERENCE 0.4; LYMPHOCYTES % (AUTO) 16.9 % (13-45); MEAN CORPUSCULAR HEMOGLOBIN 29.5 pg (27.0-33.4); MEAN CORPUSCULAR HGB CONC 33.6 g/dL (32.0-36.0); MEAN CORPUSCULAR VOLUME 88 fl (80-97); MONOCYTES % (AUTO) 10.8 % (3-13); RED BLOOD COUNT 4.93 10^6/uL (3.72-5.28); RED CELL DISTRIBUTION WIDTH 14.1 % (11.5-14.0); SEGMENTED NEUTROPHILS % (AUTO) 70.9 % (42-78); WHITE BLOOD COUNT 9.5 10^3/uL (4.0-10.5)
[2016-11-02 02:34] LABS: ALANINE AMINOTRANSFERASE 38 U/L (9-52); ALBUMIN 4.2 g/dL (3.5-5.0); ALKALINE PHOSPHATASE 100 U/L (38-126); ANION GAP 11 (5-19); ASPARTATE AMINO TRANSFERASE 30 U/L (14-36); BILIRUBIN,DIRECT 0.5 mg/dL (0.0-0.4); BILIRUBIN,TOTAL 0.5 mg/dL (0.2-1.3); BLOOD UREA NITROGEN 13 mg/dL (7-20); CARBON DIOXIDE 26 mmol/L (22-30); CHLORIDE 105 mmol/L (98-107); CREATINE KINASE 81 U/L (30-135); CREATININE RESULT 0.68 mg/dL (0.52-1.25); GLUCOSE 93 mg/dL (75-110); POTASSIUM 4.1 mmol/L (3.6-5.0); SODIUM 142.2 mmol/L (137-145); TOTAL PROTEIN 6.7 g/dL (6.3-8.2)
[2016-11-02 02:48] LABS: TROPONIN I < 0.012 ng/mL
[2016-11-02] MEDS ORDERED: DIPHENHYDRAMINE HCL 50 MG/ML VIAL IV ONE (03:34)
[2016-11-02] MEDS ORDERED: METHYLPREDNISOLONE INJ 125 MG/2 ML SDV IV ONE (03:34)
[2016-11-02] MEDS ORDERED: FAMOTIDINE INJ/PF 20 MG/2 ML SDV IV ONE (03:34)
--- NOTE | 2016-11-02 05:14 | RADIOLOGY REPORT (SQ) ---
EXAM DESCRIPTION: CTA CHEST; CT CHEST WITHOUT COMPLETED DATE/TIME: 11/02/2016 4:45 am REASON FOR STUDY: eval left lung mass; EVAL LUNG MASS COMPARISON: CR, 08/27/2016, 11/02/2016. CT, 02/24/2016, 03/04/2014. TECHNIQUE: CT scan of the chest performed using helical scanning technique without and with dynamic intravenous contrast injection. Images reviewed with lung, soft tissue and bone windows. Reconstruc tuyet coronal and sagittal MPR images reviewed. Additional 3 dimensional post-processing performed to develop Maximal Intensity Projection images (DC P). All images stored on PACS. All CT scanners at this facility use dose modulation, iterative reconstruction, and/or weight based d osing when appropriate to reduce radiation dose to as low as reasonably achievable (ALARA). [facility]: Dose Right [facility]: CareDose [facility]: Dose Right [facility]: Teradose 4D [facility]: [employer] CONTRAST TYPE AND DOSE: contrast/concentration: Isovue 370.00 mg/ml; Total Contrast Delivered: 100.0 ml; Total Saline Delivered: 40.0 ml RENAL FUNCTION: Creatinine 0.68 RADIATION DOSE: Up-to-date CT equipment and radiation dose reduction techniques were employed. CTDIv ol: 22.2 mGy. DLP: 766 mGy-cm.; Up-to-date CT equipment and radiation dose reduction techniques were employed. CTDIvol: 17.6 mGy. DLP: 617 mGy-cm. . LIMITATIONS: None. FINDINGS: LUNGS AND PLEURA: Large consolidative the left upper lobe. Small wedge-shaped, right supr ahilar consolidate of the right upper lobe. AORTA AND GREAT VESSELS: Chronic 3.6 cm diameter diffuse aneurysmal enlargement of the ascending thor acic aorta HEART: No pericardial effusion. PULMONARY ARTERIES: No emboli visualized in the main pulmonary arteries or the segmental branches. HILAR AND MEDIASTINAL STRUCTURES: Complex, low-attenuation, left suprahilar mass measures 5.5 x 4.6 x 4.2 cm compared with 2.9 x 2.9 x 2.8 cm on prior exam, 02/24/2016. CT density is 27 Hounsfield units in arterial phase imaging compared with 21 Hounsfield units on noncontrast imaging. HARDWARE: None in the chest. UPPER ABDOMEN: No significant findings. Limited exam. THYROID AND OTHER SOFT TISSUES: No masses. No adenopathy. BONES: No acute or significant finding. 3D MIPS: Confirm above findings. OTHER: No other significant finding. IMPRESSION: 1. Interval worsening includes an enlarged 5.5 cm left suprahilar mass, large left upp er lobar consolidate, and small right suprahilar consolidate. Infectious, inflammatory, neoplastic p rocesses are in the differential diagnosis. 2. No evidence of pulmonary embolus. TECHNICAL DOCUMENTATION: JOB ID: [id number] Quality ID # [id number]: Final reports with documentation of one or more dose reduction techniques (e.g., Au tomated exposure control, adjustment of the mA and/or kV according to patient size, use of iterative reconstruction technique) 2010 [employer]- All Rights Reserved
--- NOTE | 2016-11-02 05:14 | RADIOLOGY REPORT (SQ) ---
EXAM DESCRIPTION: CTA CHEST; CT CHEST WITHOUT COMPLETED DATE/TIME: 11/02/2016 4:45 am REASON FOR STUDY: eval left lung mass; EVAL LUNG MASS COMPARISON: CR, 08/27/2016, 11/02/2016. CT, 02/24/2016, 03/04/2014. TECHNIQUE: CT scan of the chest performed using helical scanning technique without and with dynamic intravenous contrast injection. Images reviewed with lung, soft tissue and bone windows. Reconstruc tuyet coronal and sagittal MPR images reviewed. Additional 3 dimensional post-processing performed to develop Maximal Intensity Projection images (SD P). All images stored on PACS. All CT scanners at this facility use dose modulation, iterative reconstruction, and/or weight based d osing when appropriate to reduce radiation dose to as low as reasonably achievable (ALARA). [facility]: Dose Right [facility]: CareDose [facility]: Dose Right [facility]: Teradose 4D [facility]: [employer] CONTRAST TYPE AND DOSE: contrast/concentration: Isovue 370.00 mg/ml; Total Contrast Delivered: 100.0 ml; Total Saline Delivered: 40.0 ml RENAL FUNCTION: Creatinine 0.68 RADIATION DOSE: Up-to-date CT equipment and radiation dose reduction techniques were employed. CTDIv ol: 22.2 mGy. DLP: 766 mGy-cm.; Up-to-date CT equipment and radiation dose reduction techniques were employed. CTDIvol: 17.6 mGy. DLP: 617 mGy-cm. . LIMITATIONS: None. FINDINGS: LUNGS AND PLEURA: Large consolidative the left upper lobe. Small wedge-shaped, right supr ahilar consolidate of the right upper lobe. AORTA AND GREAT VESSELS: Chronic 3.6 cm diameter diffuse aneurysmal enlargement of the ascending thor acic aorta HEART: No pericardial effusion. PULMONARY ARTERIES: No emboli visualized in the main pulmonary arteries or the segmental branches. HILAR AND MEDIASTINAL STRUCTURES: Complex, low-attenuation, left suprahilar mass measures 5.5 x 4.6 x 4.2 cm compared with 2.9 x 2.9 x 2.8 cm on prior exam, 02/24/2016. CT density is 27 Hounsfield units in arterial phase imaging compared with 21 Hounsfield units on noncontrast imaging. HARDWARE: None in the chest. UPPER ABDOMEN: No significant findings. Limited exam. THYROID AND OTHER SOFT TISSUES: No masses. No adenopathy. BONES: No acute or significant finding. 3D MIPS: Confirm above findings. OTHER: No other significant finding. IMPRESSION: 1. Interval worsening includes an enlarged 5.5 cm left suprahilar mass, large left upp er lobar consolidate, and small right suprahilar consolidate. Infectious, inflammatory, neoplastic p rocesses are in the differential diagnosis. 2. No evidence of pulmonary embolus. TECHNICAL DOCUMENTATION: JOB ID: [id number] Quality ID # [id number]: Final reports with documentation of one or more dose reduction techniques (e.g., Au tomated exposure control, adjustment of the mA and/or kV according to patient size, use of iterative reconstruction technique) 2010 [employer]- All Rights Reserved
--- NOTE | 2016-11-02 05:34 | ER Document Report ---
ED General - General Chief Complaint: Chest Pain Stated Complaint: CHEST PAIN Time Seen by Provider: 11/02/16 02:01 TRAVEL OUTSIDE OF THE [place] IN LAST 30 DAYS: No - HPI Patient complains to provider of: Left-sided chest pain Notes: Patient with a history of severe COPD oxygen dependent coming in for left-sided chest pain. 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 Patient denies fevers chills nausea vomiting at this time. Denies any recent travel. Patient currently states chest pain has resolved. - Related Data Allergies/Adverse Reactions: asparaginase [Asparaginase] Allergy (Severe, Verified 08/25/16 11:56) throat swells cefaclor [From Ceclor] Allergy (Severe, Verified 08/25/16 11:56) hives,swell levofloxacin [From Levaquin] Allergy (Severe, Verified 08/25/16 11:56) bakers cyst behind knee nickel [Nickel] Allergy (Severe, Verified 08/25/16 11:56) itch,swell ampicillin Allergy (Verified 08/25/16 11:56) azithromycin Allergy (Verified 08/25/16 11:56) cephalexin monohydrate [From Keflex] Allergy (Verified 08/25/16 11:56) codeine [Codeine] Allergy (Verified 08/25/16 11:56) fluticasone propionate [From Advair Diskus] Allergy (Verified 08/25/16 11:56) morphine [Morphine] Allergy (Verified 08/25/16 11:56) moxifloxacin [From Avelox] Allergy (Verified 08/25/16 11:56) Penicillins Allergy (Verified 08/25/16 11:56) salmeterol xinafoate [From Advair Diskus] Allergy (Verified 08/25/16 11:56) Sulfa (Sulfonamide Antibiotics) Allergy (Verified 08/25/16 11:56) sulfamethoxazole [From Bactrim] Allergy (Verified 08/25/16 11:56) trimethoprim [From Bactrim] Allergy (Verified 08/25/16 11:56) Past Medical History - Social History Smoking Status: Unknown if Ever Smoked Family History: None - Past Medical History Cardiac Medical History: Reports: Hx Congestive Heart Failure Denies: Hx Coronary Artery Disease, Hx Heart Attack, Hx Hypertension Pulmonary Medical History: Reports: Hx Asthma, Hx Bronchitis, Hx COPD - O2 3 liters daily, Hx Pneumonia Neurological Medical History: Denies: Hx Cerebrovascular Accident, Hx Seizures Renal/ Medical History: Denies: Hx Peritoneal Dialysis Musculoskeltal Medical History: Reports Hx Arthritis Past Surgical History: Reports: Hx Section, Hx Orthopedic Surgery, Hx Tonsillectomy - Immunizations Hx Diphtheria, Pertussis, Tetanus Vaccination: Yes Hx Pneumococcal Vaccination: 04/21/94 Review of Systems - Review of Systems Constitutional: No symptoms reported EENT: No symptoms reported Cardiovascular: Chest pain Respiratory: No symptoms reported Gastrointestinal: No symptoms reported Genitourinary: No symptoms reported Female Genitourinary: No symptoms reported Musculoskeletal: No symptoms reported Skin: No symptoms reported Hematologic/Lymphatic: No symptoms reported Neurological/Psychological: No symptoms reported Physical Exam - Vital signs Vitals: Pulse Ox 93 11/02/16 00:36 Interpretation: Normal - General General appearance: Appears well, Alert - HEENT Head: Normocephalic, Atraumatic Eyes: Normal Pupils: PERRL - Respiratory Respiratory status: No respiratory distress Chest status: Nontender Breath sounds: Rhonchi Chest palpation: Normal - Cardiovascular Rhythm: Regular Heart sounds: Normal auscultation Murmur: No - Abdominal Inspection: Normal Distension: No distension Bowel sounds: Normal Tenderness: Nontender Organomegaly: No organomegaly - Back Back: Normal, Nontender - Extremities General upper extremity: Normal inspection, Nontender, Normal color, Normal ROM , Normal temperature General lower extremity: Normal inspection, Nontender, Normal color, Normal ROM , Normal temperature, Normal weight bearing. No: Tess's sign - Neurological Neuro grossly intact: Yes Cognition: Normal Orientation: AAOx4 Yoanna Coma Scale Eye Opening: Spontaneous [place] Coma Scale Verbal: Oriented Yoanna Coma Scale Motor: Obeys Commands Yoanna Coma Scale Total: 15 Speech: Normal Motor strength normal: LUE, RUE, LLE, RLE Sensory: Normal - Psychological Associated symptoms: Normal affect, Normal mood - Skin Skin Temperature: Warm Skin Moisture: Dry Skin Color: Normal Course - Re-evaluation Re-evalutation: 11/02/16 06:18 CT of the chest was performed due to mass seen on chest x-ray CTA shows no pulmonary emboli consolidation consistent with possible neoplastic process or inflammatory versus infection. More likely neoplastic process patient was started on antibiotics which was difficult due to the many allergies the patient list. Did discuss with hospitalist team will admit the patient for further evaluation. - Vital Signs Vital signs: Temp Pulse Resp BP Pulse Ox 98 14 118/79 94 11/02/16 00:42 11/02/16 03:01 11/02/16 03:01 11/02/16 03:01 - Laboratory Result Diagrams: 11/02/16 01:50 11/02/16 01:50 Laboratory results interpreted by me: 11/02/16 11/02/16 01:50 01:50 RDW 14.1 H Direct Bilirubin 0.5 H Discharge - Discharge Clinical Impression: Oxygen dependent, Mass of left lung Pneumonia Qualifiers: Pneumonia type: due to unspecified organism Laterality: unspecified laterality Lung location: unspecified part of lung Qualified Code(s): J18.9 - Pneumonia, unspecified organism Chest pain Qualifiers: Chest pain type: unspecified Qualified Code(s): R07.9 - Chest pain, unspecified Disposition: ADMITTED INPATIENT Admitting Provider: [facility] Admitted: Telemetry
[2016-11-02] MEDS ORDERED: VANCOMYCIN HCL INJ 1000 MG VIAL IV ONE (05:46)
[2016-11-02] MEDS ORDERED: AZTREONAM INJ 1 GM VIAL IV ONE (05:46)
[2016-11-02] MEDS ORDERED: ACETAMINOPHEN 325 MG TABLET PO PRN (06:28)
[2016-11-02] MEDS ORDERED: DEXTROSE 40% GEL 15 GM TUBE PO PRN ×2 (06:29)
[2016-11-02] MEDS ORDERED: DEXTROSE 50%-WATER 25 GM/50 ML DISP.SYRIN IV PRN ×2 (06:29)
[2016-11-02] MEDS ORDERED: GLUCAGON,HUMAN RECOMB 1 MG INJ IM PRN (06:29)
[2016-11-02] MEDS ORDERED: INSULIN LISPRO 100 UNIT/ML 3 ML VIAL SUBCUT PRN (06:29)
[2016-11-02] MEDS ORDERED: VANCOMYCIN HCL 0 MG in DEXTROSE 5%-WATER 250 ML IV NR (06:45)
--- NOTE | 2016-11-02 06:50 | PDOC H&P ---
History of Present Illness Admission Date/PCP: 11/02/16 06:00 MD Ryder MORA Patient complains of: chest pain History of Present Illness: MIKI KHAN is a 61 year old female with 4 L oxygen per nasal cannula 24/7 home O2 dependent COPD, who presents to the emergency room for evaluation of above complaint. Patient has been discussed with emergency room physician who evaluated the patient. She describes the onset of substernal chest "heaviness" approximately 24 hours ago, more toward the left side, which increased with movement and cough. Positive fever and shaking chills. Slight increase in her chronic shortness of breath. No nausea vomiting, diarrhea or dysuria. 10 day course of doxycycline in late August/early September from Dr. Soler. Dictation via voice recognition software. Laboratory results are listed in [employer] and are reviewed. X-ray summary results are listed below, with full report(s) reviewed. . EKG reviewed and compared to prior tracing from August 27 of this year. Social history/personal habits: Single. 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 No tobacco use 5 years. No alcohol or illicit drug use. Allergies/adverse reactions are listed in [employer] and are reviewed. Home medications initially autopopulated into [employer] may not accurately reflect patient's true medications, dosages, and/or frequencies. client technologies specialist to reconcile medications. Unfortunately, patient not certain of all medications/dosages/frequencies. REVIEW OF SYSTEMS: Constitutional: See history and present illness. Eyes: Wears glasses ENT: No swallowing problems or complaints. Partial hearing loss. Pulmonary: See history and present illness. Cardiovascular: See history and present illness. Gastrointestinal: No current complaints, including nausea or vomiting. Skin: No current complaints, including rashes. Hematologic: Easy bruising. Neurologic: No current complaints, including numbness or tingling. Musculoskeletal: No current or chronic joint complaints, such as arthritis. Psychiatric: Mild anxiety and depression. Denies suicidal or homicidal ideation. Endocrine: No current complaints, including polyuria. Genitourinary: No current complaints, including dysuria. PHYSICAL EXAMINATION: 126.8 kg. Height is not recorded on the chart. Blood pressure 114/86. Pulse 98 and regular. 90% saturation on 4 L oxygen per nasal cannula. Respirations are 24 and unlabored. Temperature not recorded on chart; skin feels normothermic. Obese otherwise well-developed female appearing approximately her stated age. Pleasant awake alert and cooperative. Appears to feel a bit under the weather, so to speak. Mildly anxious, without agitation. Female emergency room nurse Tonia is present. Skin is warm and dry. No grossly obvious evidence of rash in areas of skin examined. No subcutaneous nodules palpated. ENT: Hearing grossly normal to normal conversation. Tongue midline on protrusion pink and slightly tacky. Eyes: No scleral icterus. Pupils equal and reactive to light at 4 mm. [place] conjunctivae. Neck is supple and nontender to gentle active range of motion and palpation. Midline trachea. No palpable thyroid nodule mass enlargement or tenderness. Lymphatic: No palpable cervical or clavicular nodes. Neck and lymphatic exams limited by patient body habitus. Psychiatric: Reasonable insight into acute and chronic medical issues. Oriented to time location and why here. Lungs: Auscultation reveals clear and equal breath sounds bilaterally. No use of accessory respiratory muscles. Occasional slightly congested cough. Cardiovascular: Heart regular rate and rhythm, without gallop murmur or rub. No carotid or abdominal aortic bruits. No ankle edema. Abdomen:soft obese nontender with positive bowel sounds. Unable to adequately evaluate abdomen for masses or organomegaly due to body habitus. Extremities: No calf tenderness to compression. No grossly obvious visual evidence of calf swelling. Gentle manipulation of lower extremities fails to reveal any obvious evidence of injury or instability to knees hips or ankles. Neurologic: Moves upper extremities grossly normally. Patellar reflexes absent. Dorsiflexion and plantarflexion of feet 5 / 5 and symmetric. Past Medical History Cardiac Medical History: Reports: Congestive Heart Failure Denies: Atrial Fibrillation, Coronary Artery Disease, DVT, Myocardial Infarction, Hyperlipidema, Hypertension, Pulmonary Embolism Pulmonary Medical History: Reports: Asthma, Bronchitis, Chronic Obstructive Pulmonary Disease (COPD) - O2 4 liters daily, Pneumonia Denies: Sleep Apnea EENT Medical History: Reports: Eyes - Glasses, Ears - Partial hearing loss Denies: Throat Neurological Medical History: Denies: Hemorrhagic CVA, Ischemic CVA, Seizures Endocrine Medical History: Denies: Diabetes Mellitus Type 1, Diabetes Mellitus Type 2, Hyperthyroidism, Hypothyroidism Renal/ Medical History: Reports: Nephrolithiasis - Recent recurrence of GI Medical History: Denies: Cirrhosis, Gastroesophageal Reflux Disease, Hepatitis, Peptic Ulcer Disease Musculoskeltal Medical History: Reports: Arthritis Psychiatric Medical History: Reports: Depression - Denies anxiety or depression , General Anxiety Disorder Denies: Alcohol Dependency, Substance Abuse, Tobacco Dependency Hematology: Reports: Other - Easy bruising Denies: Anemia Infectious Medical History: Denies: Hepatitis B, Hepatitis C Past Surgical History Past Surgical History: Reports: Section, Orthopedic Surgery, Tonsillectomy Social History Information Source: Patient, Emergency Med Personnel, [facility] Records Lives with: Friend Smoking Status: Former Smoker Frequency of Alcohol Use: None Hx Recreational Drug Use: No Drugs: None - Advance Directive Resuscitation Status: Full Code Surrogate healthcare decision maker:: Keith Khan Family History Family History: None Parental Family History Reviewed: Yes - Parents of coronary disease Children Family History Reviewed: Yes - Healthy Sibling(s) Family History Reviewed.: Yes - Hypothyroid Medication/Allergy Home Medications: RX: Acetylcysteine [Mucomist 20% Soln 800 mg/4 mL] 800 mg IH RTBID 11/02/16 RX: Albuterol Sulfate [Proair HFA] 2 puff IH Q4 PRN 11/02/16 RX: Amitriptyline HCl [Elavil 10 mg Tablet] 10 mg PO QHS 11/02/16 RX: Aspirin [Aspirin 325 mg Tablet] 325 mg PO BID 11/02/16 RX: Budesonide/Formoterol Fumarate [Symbicort HFA 160-4.5 mcg Inhaler 6 gm] 2 puff IH Q12 11/02/16 RX: Buspirone HCl [Buspar 10 mg Tablet] 10 mg PO BID 11/02/16 RX: Diltiazem HCl [Diltiazem 12Hr ER] 120 mg PO Q12 11/02/16 RX: Ezetimibe [Zetia 10 mg Tablet] 10 mg PO DAILY 11/02/16 RX: Fluticasone Propionate [Flonase Nasal [place] 50 Mcg/[place] 16 gm] 2 sprays NAREB Q12 11/02/16 RX: Furosemide [Lasix 20 mg Tablet] 20 mg PO QAM 11/02/16 RX: Ipratropium/Albuterol Sulfate [Duoneb 3 ml Ampul] 3 ml NEB RTQID 11/02/16 RX: Meloxicam [Mobic 15 mg Tablet] 15 mg PO DAILY 11/02/16 RX: Mirabegron [Myrbetriq] 50 mg PO DAILY 11/02/16 RX: Montelukast Sodium [Singulair 10 mg Tablet] 10 mg PO QHS 11/02/16 RX: Roflumilast [Daliresp 500 mcg Tablet] 500 mcg PO DAILY 11/02/16 RX: Theophylline Anhydrous 300 mg PO Q12 11/02/16 RX: Tiotropium [place] [Spiriva Handihaler 18 mcg/dose (30 Dose)] 1 cap IH DAILY 11/02/16 RX: Benzonatate [Tessalon Perles 100 mg Capsule] 100 mg PO Q8HP PRN capsule RX: Oxybutynin Chloride [Ditropan 5 mg Tablet] 5 mg PO BID tablet 11/05/16 RX: Oxycodone HCl/Acetaminophen [Percocet 5-325 mg Tablet] 1 tab PO Q4HP PRN tablet 11/05/16 RX: Tobramycin Sulfate [Tobramycin Neb 40 mg/ml 30 ml Vial] 300 mg NEB RTQ12 ml 11/05/16 Allergies/Adverse Reactions: asparaginase [Asparaginase] Allergy (Severe, Verified 08/25/16 11:56) throat swells cefaclor [From Ceclor] Allergy (Severe, Verified 08/25/16 11:56) hives,swell levofloxacin [From Levaquin] Allergy (Severe, Verified 08/25/16 11:56) bakers cyst behind knee nickel [Nickel] Allergy (Severe, Verified 08/25/16 11:56) itch,swell ampicillin Allergy (Verified 08/25/16 11:56) azithromycin Allergy (Verified 08/25/16 11:56) cephalexin monohydrate [From Keflex] Allergy (Verified 08/25/16 11:56) codeine [Codeine] Allergy (Verified 08/25/16 11:56) fluticasone propionate [From Advair Diskus] Allergy (Verified 11/02/16 06:34) morphine [Morphine] Allergy (Verified 08/25/16 11:56) moxifloxacin [From Avelox] Allergy (Verified 08/25/16 11:56) Penicillins Allergy (Verified 08/25/16 11:56) salmeterol xinafoate [From Advair Diskus] Allergy (Verified 08/25/16 11:56) Sulfa (Sulfonamide Antibiotics) Allergy (Verified 08/25/16 11:56) sulfamethoxazole [From Bactrim] Allergy (Verified 08/25/16 11:56) trimethoprim [From Bactrim] Allergy (Verified 08/25/16 11:56) Physical Exam Vital Signs: Temp Pulse Resp BP Pulse Ox 98 14 118/79 94 11/02/16 00:42 11/02/16 03:01 11/02/16 03:01 11/02/16 03:01 Results Impressions: Chest CT 11/02/16 00:00 IMPRESSION: 1. Interval worsening includes an enlarged 5.5 cm left suprahilar mass, large left upper lobar consolidate, and small right suprahilar consolidate. Infectious, inflammatory, neoplastic processes are in the differential diagnosis. 2. No evidence of pulmonary embolus. Chest X-Ray 11/02/16 00:36 IMPRESSION: Increased 5.3 cm left perihilar opacity. Differential diagnosis includes malignancy. Current evaluation with pre and post IV contrast CT of the chest recommended. Chest/Abdomen CTA 11/02/16 02:49 IMPRESSION: 1. Interval worsening includes an enlarged 5.5 cm left suprahilar mass, large left upper lobar consolidate, and small right suprahilar consolidate. Infectious, inflammatory, neoplastic processes are in the differential diagnosis. 2. No evidence of pulmonary embolus. Assessment & Plan - Diagnosis (1) Chest pain Qualifiers: Chest pain type: unspecified Qualified Code(s): R07.9 - Chest pain, unspecified Is this a current diagnosis for this admission?: Yes Plan: Likely due to underlying mass and pneumonia. (2) Left upper lobe pneumonia Qualifiers: Pneumonia type: due to unspecified organism Qualified Code(s): J18.1 - Lobar pneumonia, unspecified organism Is this a current diagnosis for this admission?: Yes Plan: Patient will be admitted under COPD exacerbation and pneumonia protocol. Incentive spirometry twice a day. Solu-Medrol. Pulmonology consult Antibiotics will consist of aztreonam and intravenous vancomycin, due to patient 's multiple medication allergies. Pharmacy to assist with vancomycin dosing. Patient is a full code. I have strongly encouraged patient not to get out of bed without notifying staff , to avoid a fall with injury. Knee high SCDs for DVT prophylaxis, along with subcutaneous Lovenox. Impression and plans were discussed with patient who concurs. Time spent in evaluation and management of patient: 72 minutes. (3) Mass of left lung Is this a current diagnosis for this admission?: Yes Plan: Worrisome for cancer. Patient aware. Oncology consult. (4) Obstructive chronic bronchitis with exacerbation Is this a current diagnosis for this admission?: Yes (5) Oxygen dependent Is this a current diagnosis for this admission?: Yes - Time Time Spent: Greater than 70 Minutes Anticipated discharge: Home Within: Other - Inpatient Certification Based on my medical assessment, after consideration of the patient's comorbidities, presenting symptoms, or acuity I expect that the services needed warrant INPATIENT care.: Yes I certify that my determination is in accordance with my understanding of Medicare's requirements for reasonable and necessary INPATIENT services [42 CFR 412.3e].: Yes Medical Necessity: Significant Comorbidiites Make Outpatient Treatment Too Risky , Need Close Monitoring Due to Risk of Patient Decompensation, Need for IV Antibiotics, Risk of Complication if Not Cared For in Hospital Post Hospital Care: D/C or Transfer Summary
--- NOTE | 2016-11-02 07:47 | EKG REPORT ---
SEVERITY:- ABNORMAL ECG - SINUS TACHYCARDIA INFERIOR INFARCT, AGE INDETERMINATE : Confirmed by: Syd Mandel MD 02-Nov-2016 07:46:21
[2016-11-02] MEDS ORDERED: ALBUTEROL SULFATE HFA (90 MCG/PUFF) 8 GM MDI (1 MDI/ER DISP) IH PRN (08:54)
[2016-11-02] MEDS ORDERED: ALBUTEROL SULFATE HFA (90 MCG/PUFF) 200 PUFF/8.5 GM MDI IH PRN (09:30)
[2016-11-02 09:43] LABS: APPEARANCE,URINE CLEAR; BILIRUBIN,URINE NEGATIVE (NEGATIVE); GLUCOSE, URINE NEGATIVE (NEGATIVE); KETONES,URINE NEGATIVE (NEGATIVE); LEUKOCYTE ESTERASE,URINE NEGATIVE (NEGATIVE); NITRITE,URINE NEGATIVE (NEGATIVE); PROTEIN,URINE NEGATIVE (NEGATIVE); UROBILINOGEN,URINE NEGATIVE mg/dL (<2.0)
[2016-11-02 09:48] LABS: URINE SPECIFIC GRAVITY > 1.060
[2016-11-02] MEDS ORDERED: (PENDING PHARMACY ID) (Roflumilast [Daliresp 500 Mcg Tablet] 500 MCG) PO SCH (10:00)
[2016-11-02] MEDS ORDERED: (PENDING PHARMACY ID) (Mirabegron [Myrbetriq] 50 MG) PO SCH (10:00)
[2016-11-02] MEDS ORDERED: (PENDING PHARMACY ID) (Diltiazem Hcl [Diltiazem 12hr Er] 120 MG) PO SCH (10:00)
[2016-11-02] MEDS: ASPIRIN 325 MG TABLET PO SCH ×2 (10:07→17:09)
[2016-11-02] MEDS: BUDESONIDE/FORMOTEROL 160-4.5 MCG 60 PUFF/6 GM MDI IH SCH ×2 (10:07→22:04)
[2016-11-02] MEDS: ROFLUMILAST 500 MCG TABLET PO SCH (10:08)
[2016-11-02] MEDS: THEOPHYLLINE ANHYDROUS 300 MG TAB.SR.12H PO SCH ×2 (10:09→22:03)
[2016-11-02] MEDS: TIOTROPIUM BROMIDE DPI 5 CAP/KIT (18 MCG/CAP) IH SCH (10:09)
[2016-11-02] MEDS: DILTIAZEM HCL 120 MG CAP.SR.24H PO SCH ×2 (10:10→22:04)
[2016-11-02] MEDS: BUSPIRONE HCL 10 MG TABLET PO SCH ×2 (10:10→17:09)
[2016-11-02] MEDS: EZETIMIBE 10 MG TABLET PO SCH (10:11)
[2016-11-02] MEDS: ENOXAPARIN SODIUM INJ 40 MG/0.4 ML DISP.SYRIN SUBCUT SCH (10:11)
[2016-11-02 10:18] LABS: PROTHROMBIN TIME 13.1 SEC (11.4-15.4)
[2016-11-02 10:19] LABS: PARTIAL THROMBOPLASTIN TIME 35.9 SEC (23.5-35.8)
--- NOTE | 2016-11-02 10:23 | Physician Advisory Note ---
Physician Advisor ProgressNote .: Pursuant to the plan for [facility], I have reviewed the medical record for this patient. Physician Advisor Statement: Please consider documentin. "Acute PNA SAKSHI, may be gram-negative given underlying COPD ..." (or what type bacteria is suspected) 2. "chronic hypoxemic respiratory failure requiring 4L O2 & chronic alexis/ Mucomyst nebs at baseline" 3. "chronic diastolic CHF" 4. "obesity w/BMI 43" 5. Medical necessity - reasons why pt extremely unlikely to be medically ready to go home on 11/03. Needs to be made explicit. Status: This is a Medicare pt with severe baseline lung disease who now has not just evidence for acute pneumonia with COPD exacerb, which themselves are quite likely to require >2MNs in hospital given her baseline status, but also a new lung mass that is highly likely to be cancerous and needs workup and tx planning which will be made more difficult by her underlying chronic and now acute co-morbidities. The chances of such a pt being able to safely go home in fewer than 2 MNs sounds extremely slim. Appropriate for INpt status with documentation of above (attg is welcome to use ideas in this paragraph if agrees). Disucssion: Pt w/severe underlying chr resp failure, chronic diastolic CHF, obesity, now w/F/C/CP/worsened SOB, tachypnea, mass & consolidation lung concerning for CA, along w/COPD exacerb. Attending ordered Solumedrol, Aztreonam, Vanc, pulm & onc consults. Thanks! CK
[2016-11-02] MEDS ORDERED: FUROSEMIDE 20 MG TABLET PO ONE (10:30)
--- NOTE | 2016-11-02 10:59 | PDOC CONSULTATION ---
Consultation Consult Date: 11/02/16 Attending physician:: KRYSTYNA GUAN Consult reason:: left lung mass History of Present Illness Admission Date/PCP: 11/02/16 06:28 OLGA MAIER MD History of Present Illness: MIKI FROST is a 61 year old female with 4 L oxygen per nasal cannula 24/7 home O2 dependent COPD, who presents to the emergency room for evaluation of above complaint.She complains of increasing orthopnea and shortness of breath over the last 2 weeks of cough is rhonchorous but nonproductive she denies nausea vomiting but admits to some fevers and chills occasionally has some inspiratory left-sided chest pain she had been O2 dependent for the last 4 years. She has extensive history of smoking but has not smoked in the last 5 years. Past Medical History Cardiac Medical History: Reports: Congestive Heart Failure Denies: Atrial Fibrillation, Coronary Artery Disease, DVT, Myocardial Infarction, Hyperlipidema, Hypertension, Pulmonary Embolism Pulmonary Medical History: Reports: Asthma, Bronchitis, Chronic Obstructive Pulmonary Disease (COPD) - O2 4 liters daily, Pneumonia Denies: Sleep Apnea EENT Medical History: Reports: Eyes - Glasses, Ears - Partial hearing loss, Other - Easy bruising Denies: Throat Neurological Medical History: Denies: Hemorrhagic CVA, Ischemic CVA, Seizures Endocrine Medical History: Denies: Diabetes Mellitus Type 1, Diabetes Mellitus Type 2, Hyperthyroidism, Hypothyroidism Renal/ Medical History: Reports: Nephrolithiasis - Recent recurrence of GI Medical History: Denies: Cirrhosis, Gastroesophageal Reflux Disease, Hepatitis, Peptic Ulcer Disease Musculoskeltal Medical History: Reports: Arthritis Psychiatric Medical History: Reports: Depression - Denies anxiety or depression , General Anxiety Disorder Denies: Alcohol Dependency, Substance Abuse, Tobacco Dependency Hematology: Reports: Other - Easy bruising Denies: Anemia Infectious Medical History: Denies: Hepatitis B, Hepatitis C Past Surgical History Past Surgical History: Reports: Section, Orthopedic Surgery, Tonsillectomy Social History Information Source: Patient, DrGerald Pearson, [facility] Records 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 with: Friend Smoking Status: Former Smoker Passive smoke exposure as: Both Frequency of Alcohol Use: None Hx Recreational Drug Use: No Drugs: None Hx Prescription Drug Abuse: No Do you have pets?: No - Advance Directive Resuscitation Status: Full Code Family History Family History: None Parental Family History Reviewed: Yes Children Family History Reviewed: Yes Sibling(s) Family History Reviewed.: Yes Medication/Allergy Home Medications: Acetylcysteine [Mucomist 20% Soln 800 mg/4 ml] 800 mg IH RTBID 11/02/16 Albuterol Sulfate [Proair HFA] 2 puff IH Q4 PRN 11/02/16 Amitriptyline HCl [Elavil 10 Mg Tablet] 10 mg PO QHS 11/02/16 Aspirin [Aspirin 325 mg Tablet] 325 mg PO BID 11/02/16 Budesonide/Formoterol Fumarate [Symbicort Hfa 160-4.5 Mcg Inhaler 6 gm] 2 puff IH Q12 11/02/16 Buspirone HCl [Buspar 10 mg Tablet] 10 mg PO BID 11/02/16 Diltiazem HCl [Diltiazem 12Hr ER] 120 mg PO Q12 11/02/16 Ezetimibe [Zetia 10 mg Tablet] 10 mg PO DAILY 11/02/16 Fluticasone Propionate [Flonase Nasal [place] 50 Mcg/[place] 16 gm] 2 sprays NAREB Q12 11/02/16 Furosemide [Lasix 20 mg Tablet] 20 mg PO QAM 11/02/16 Ipratropium/Albuterol Sulfate [Duoneb 3 ml Ampul] 3 ml NEB RTQID 11/02/16 Meloxicam [Mobic 15 mg Tablet] 15 mg PO DAILY 11/02/16 Mirabegron [Myrbetriq] 50 mg PO DAILY 11/02/16 Montelukast Sodium [Singulair 10 mg Tablet] 10 mg PO QHS 11/02/16 Roflumilast [Daliresp 500 mcg Tablet] 500 mcg PO DAILY 11/02/16 Theophylline Anhydrous 300 mg PO Q12 11/02/16 Tiotropium [place] [Spiriva Handihaler 18 mcg/dose (30 Dose)] 1 cap IH DAILY Allergies/Adverse Reactions: asparaginase [Asparaginase] Allergy (Severe, Verified 08/25/16 11:56) throat swells cefaclor [From Ceclor] Allergy (Severe, Verified 08/25/16 11:56) hives,swell levofloxacin [From Levaquin] Allergy (Severe, Verified 08/25/16 11:56) bakers cyst behind knee nickel [Nickel] Allergy (Severe, Verified 08/25/16 11:56) itch,swell ampicillin Allergy (Verified 08/25/16 11:56) azithromycin Allergy (Verified 08/25/16 11:56) cephalexin monohydrate [From Keflex] Allergy (Verified 08/25/16 11:56) codeine [Codeine] Allergy (Verified 08/25/16 11:56) fluticasone propionate [From Advair Diskus] Allergy (Verified 11/02/16 06:34) morphine [Morphine] Allergy (Verified 08/25/16 11:56) moxifloxacin [From Avelox] Allergy (Verified 08/25/16 11:56) Penicillins Allergy (Verified 08/25/16 11:56) salmeterol xinafoate [From Advair Diskus] Allergy (Verified 08/25/16 11:56) Sulfa (Sulfonamide Antibiotics) Allergy (Verified 08/25/16 11:56) sulfamethoxazole [From Bactrim] Allergy (Verified 08/25/16 11:56) trimethoprim [From Bactrim] Allergy (Verified 08/25/16 11:56) Review of Systems All systems: reviewed and no additional remarkable complaints except as stated Physical Exam Vital Signs: Temp Pulse Resp BP Pulse Ox 98 25 H 116/83 91 L 11/02/16 00:42 11/02/16 07:01 11/02/16 07:01 11/02/16 07:01 Intake & Output 11/01/16 11/02/16 11/03/16 06:59 06:59 06:59 Weight 126.8 kg General appearance: PRESENT: no acute distress, disheveled, obese, well- developed Head exam: PRESENT: atraumatic, normocephalic Eye exam: PRESENT: conjunctiva pale, EOMI Mouth exam: PRESENT: moist, neck supple, tongue midline Neck exam: ABSENT: carotid bruit, JVD, lymphadenopathy, thyromegaly Respiratory exam: PRESENT: decreased breath sounds, prolonged expiratory phas, rales, rhonchi, symmetrical, unlabored, wheezes Cardiovascular exam: PRESENT: RRR, +S1, +S2 Pulses: PRESENT: normal radial pulses GI/Abdominal exam: PRESENT: normal bowel sounds, soft. ABSENT: distended, guarding, mass, organolmegaly, rebound, tenderness Rectal exam: PRESENT: deferred Musculoskeletal exam: PRESENT: normal inspection Neurological exam: PRESENT: alert, awake Psychiatric exam: PRESENT: normal mood Skin exam: PRESENT: dry, warm Results Impressions: Chest CT 11/02/16 00:00 IMPRESSION: 1. Interval worsening includes an enlarged 5.5 cm left suprahilar mass, large left upper lobar consolidate, and small right suprahilar consolidate. Infectious, inflammatory, neoplastic processes are in the differential diagnosis. 2. No evidence of pulmonary embolus. Chest X-Ray 11/02/16 00:36 IMPRESSION: Increased 5.3 cm left perihilar opacity. Differential diagnosis includes malignancy. Current evaluation with pre and post IV contrast CT of the chest recommended. Chest/Abdomen CTA 11/02/16 02:49 IMPRESSION: 1. Interval worsening includes an enlarged 5.5 cm left suprahilar mass, large left upper lobar consolidate, and small right suprahilar consolidate. Infectious, inflammatory, neoplastic processes are in the differential diagnosis. 2. No evidence of pulmonary embolus. Assessment & Plan - Diagnosis (1) Left upper lobe pneumonia Qualifiers: Pneumonia type: due to unspecified organism Qualified Code(s): J18.1 - Lobar pneumonia, unspecified organism Is this a current diagnosis for this admission?: YesPlan: Rhonchorous nonproductive cough no leukocytosis no left shift patient reportedly febrile in the recent past (2) Mass of left lung Is this a current diagnosis for this admission?: YesPlan: Left upper lobe mass ; Tissue diagnosis either by bronchoscopy or by CT-guided needle biopsy (3) Obstructive chronic bronchitis with exacerbation Is this a current diagnosis for this admission?: YesPlan: Continue current bronchodilator therapy (4) Oxygen dependent Is this a current diagnosis for this admission?: Yes - Time Critical Time spent with patient: 35 or more minutes - 40 minutes
[2016-11-02] MEDS ORDERED: BENZONATATE 100 MG CAPSULE PO PRN (11:34)
[2016-11-02] MEDS: IPRATROPIUM/ALBUTEROL 0.5-2.5 MG/3 ML AMPUL NEB SCH ×2 (14:11→19:44)
[2016-11-02] MEDS: METHYLPREDNISOLONE INJ 125 MG/2 ML SDV IV SCH ×2 (14:58→22:04)
[2016-11-02] MEDS: AZTREONAM 1 GM in DEXTROSE 5%-WATER 50 ML IV SCH ×2 (14:58→22:04)
[2016-11-02] MEDS: VANCOMYCIN HCL 1,000 MG in DEXTROSE 5%-WATER 250 ML IV SCH ×2 (16:00→22:04)
--- NOTE | 2016-11-02 16:02 | PDOC PROGRESS REPORT ---
Subjective Progress Note for:: 11/02/16 Subjective:: Patient is seen on rounds. She is sitting on the side of bed. She is mildly tachypneic and tachycardic at rest. SPO2 on 4 l/min via n/c and her SPO2 is 90- 92%. She has desaturated into the 70s with exertion. Dr Soler was just in to see her and is planning on bronchoscopy tomorrow. She has significant left upper lobe collapse. CT of the thorax was shown to patient and with all questions answered.. Patient is experiencing retrosternal pain and left scapular pain. She admits to dyspnea with minimal exertion which is much worse than her norm. She denies any other symptoms. Cough is nonproductive at the present time. Physical Exam Vital Signs: Temp Pulse Resp BP Pulse Ox 98.0 F 113 H 16 133/90 H 92 11/02/16 11:03 11/02/16 15:00 11/02/16 14:16 11/02/16 11:03 11/02/16 14:16 Intake & Output 11/01/16 11/02/16 11/03/16 06:59 06:59 06:59 Intake Total 480 Output Total 500 Balance -20 Weight 128.4 kg General appearance: PRESENT: no acute distress, obese, well-developed, well- nourished Head exam: PRESENT: atraumatic, normocephalic Eye exam: PRESENT: conjunctiva pink, EOMI, PERRLA. ABSENT: scleral icterus Ear exam: PRESENT: normal external ear exam Mouth exam: PRESENT: moist, tongue midline Neck exam: PRESENT: carotid bruit Respiratory exam: PRESENT: accessory muscle use, chest wall tenderness, decreased breath sounds, rhonchi, symmetrical, unlabored - Left lung field Cardiovascular exam: PRESENT: RRR, +S1, +S2. ABSENT: diastolic murmur, rubs, systolic murmur Pulses: PRESENT: normal dorsalis pedis pul Vascular exam: PRESENT: normal capillary refill GI/Abdominal exam: PRESENT: normal bowel sounds, soft. ABSENT: distended, guarding, mass, organolmegaly, rebound, tenderness Rectal exam: PRESENT: deferred Extremities exam: PRESENT: full ROM. ABSENT: calf tenderness, clubbing, pedal edema Neurological exam: PRESENT: alert, awake, oriented to person, oriented to place , oriented to time, oriented to situation, CN II-XII grossly intact. ABSENT: motor sensory deficit Psychiatric exam: PRESENT: appropriate affect, normal mood. ABSENT: homicidal ideation, suicidal ideation Skin exam: PRESENT: dry, intact, warm. ABSENT: cyanosis, rash Results Laboratory Results: 11/02/16 09:10 Urine Color YELLOW Urine Appearance CLEAR Urine pH 7.0 Ur Specific [place] > 1.060 Urine Protein NEGATIVE Urine Glucose (UA) NEGATIVE Urine Ketones NEGATIVE Urine Blood NEGATIVE Urine Nitrite NEGATIVE Ur Leukocyte Esterase NEGATIVE Urine WBC (Auto) 1 Urine RBC (Auto) 2 Impressions: Chest CT 11/02/16 00:00 IMPRESSION: 1. Interval worsening includes an enlarged 5.5 cm left suprahilar mass, large left upper lobar consolidate, and small right suprahilar consolidate. Infectious, inflammatory, neoplastic processes are in the differential diagnosis. 2. No evidence of pulmonary embolus. Chest X-Ray 11/02/16 00:36 IMPRESSION: Increased 5.3 cm left perihilar opacity. Differential diagnosis includes malignancy. Current evaluation with pre and post IV contrast CT of the chest recommended. Chest/Abdomen CTA 11/02/16 02:49 IMPRESSION: 1. Interval worsening includes an enlarged 5.5 cm left suprahilar mass, large left upper lobar consolidate, and small right suprahilar consolidate. Infectious, inflammatory, neoplastic processes are in the differential diagnosis. 2. No evidence of pulmonary embolus. Assessment & Plan - Diagnosis (1) Hypoxemia Plan: Patient had oxygen saturations into the 60's on 4l/min at home prior to arrival here. Improved with IV steroids, nebulizers and NIV. Patient with left upper lobe collapse from unknown etiology, mucous plug or tumor. Dr Soler in planning on bronch tomorrow (2) Left upper lobe pneumonia Qualifiers: Pneumonia type: due to unspecified organism Qualified Code(s): J18.1 - Lobar pneumonia, unspecified organism Is this a current diagnosis for this admission?: YesPlan: Patient with long history of obstructive bronchitis and COPD on home oxygen. Will cover with typical and atypical organisms pending bronchoscopy or sputum culture (3) Mass of left lung Is this a current diagnosis for this admission?: YesPlan: Pending bronchoscopy (4) Obstructive chronic bronchitis with exacerbation Is this a current diagnosis for this admission?: Yes (5) Oxygen dependent Is this a current diagnosis for this admission?: Yes (6) Chronic diastolic (congestive) heart failure Is this a current diagnosis for this admission?: YesPlan: PAtient is euvolemic at present - Time Time Spent with patient: 25-34 minutes Critical Time spent with patient: 25-34 minutes Medications reviewed and adjusted accordingly: Yes Anticipated discharge: Home with Homehealth
[2016-11-02] MEDS: OXYBUTYNIN CHLORIDE 5 MG TABLET PO SCH (17:09)
--- NOTE | 2016-11-02 17:42 | CONSULTATION REPORT E ---
Consultation Report NAME: MIKI FROST : 1955 AGE: 61Y DATE: 11/02/2016 ROOM: 535 A TO: RAFI HOFF M.D. FROM: KRYSTYNA GUAN M.D. Requesting Physician REASON FOR ADMISSION: Patient referred with lung mass. HISTORY OF PRESENT ILLNESS: The patient is a 61-year-old woman who tells me that over the last couple of years she has been followed because of findings on her CAT scan that were suggestive of malignancy. She tells me she has had about 2 PET CTs that were negative, ordered by Dr. Rucker as an outpatient. She also tells me she has been followed closely by Dr. Soler over the years and she was already seen this morning by him and he is scheduling possibly a bronchoscopy or a CT-guided biopsy. She tells me she came in yesterday because of complaints of chest pain, and she was admitted with possible exacerbation of COPD, possible pneumonia. At home she is on 4 L oxygen by nasal cannula. She has oxygen-dependent COPD. She is also compliant with all her inhalers and other medications. Her pain she describes as sometimes pleuritic over the right chest wall, sometimes center of chest, and yesterday she had noticed it radiating into the neck and also into her left shoulder. Her weight has been stable. She does not have increased night sweats. PAST MEDICAL HISTORY: Includes a history of CHF, chronic pulmonary disease starting initially as asthma, later progressing to chronic bronchitis and COPD, on home oxygen. She is up to date with her mammograms as well as her colonoscopies. SOCIAL HISTORY: She is a former smoker. She quit smoking a couple of years ago. MEDICATIONS INCLUDE: 1. Albuterol. 2. Theophylline. 3. Amitriptyline. 4. Diltiazem. 5. Prednisone. 6. Lasix. 7. Flonase. 8. Mobic. 9. Spiriva. ALLERGIES: 1. ASPARAGINASE. 2. CEFACLOR. 3. LEVAQUIN. 4. NICKEL. 5. AMPICILLIN. 6. AZITHROMYCIN. 7. CODEINE. 8. ADVAIR. 9. MORPHINE. 10. AVELOX. 11. PENICILLIN. 12. SULFA. PHYSICAL EXAMINATION: GENERAL: She is a middle-aged woman. She appears comfortable, breathing on 4 L nasal cannula. LUNGS: She has symmetrical breathing. No significant wheezing. ABDOMEN: Soft. EXTREMITIES: No edema. LABORATORY STUDIES: White count 9.5, hemoglobin 14.6, platelet count 282. BUN 13, creatinine 0.68. Liver function tests within normal limits. IMAGING: CT chest 11/02/2016: Interval worsening of an enlarged 5.5 left suprahilar mass, large left upper lobar consolidation, small right suprahilar consolidation. Differentials include infection, inflammatory or malignancy. Chest x-ray 11/02/2016: A 5.3-cm left perihilar opacity. IMPRESSION AND PLAN: The patient is a 61-year-old woman with an abnormal CAT scan. I agree with Dr. Soler's evaluation for either bronchoscopy or CT-guided biopsy. I explained to the patient that without a tissue diagnosis malignancy cannot be confirmed. I will await the results of the tissue biopsy. If she gets discharged I will be glad to see her as an outpatient. I thank you for this consultation and allowing me to be part of her care. DICTATING PHYSICIAN: RAFI HOFF M.D. [id number] PHY#: [id number] ID: [id number] JOB#: [id number] ACCT: [id number] cc:RAFI HOFF M.D. >
[2016-11-02] MEDS: ACETYLCYSTEINE 20% SOLN 800 MG/4 ML VIAL.NEB IH SCH ×4 (19:44→21:11)
[2016-11-02] MEDS ORDERED: ACETYLCYSTEINE 20% SOLN 800 MG/4 ML VIAL.NEB IH SCH (20:00)
[2016-11-02] MEDS: OXYCODONE-ACETAMINOPHEN 5-325 MG TABLET PO PRN (20:31)
[2016-11-02] MEDS: AMITRIPTYLINE HCL 10 MG TABLET PO SCH (22:03)
[2016-11-02] MEDS: MONTELUKAST SODIUM 10 MG TABLET PO SCH (22:04)
[2016-11-02] MEDS: FLUTICASONE NASAL SPRAY 50 MCG/SPRY 120 SPRAY/16 GM NAREB SCH (22:28)
[2016-11-03] MEDS: AZTREONAM 1 GM in DEXTROSE 5%-WATER 50 ML IV SCH ×3 (05:12→22:07)
[2016-11-03] MEDS: METHYLPREDNISOLONE INJ 125 MG/2 ML SDV IV SCH ×3 (05:12→22:08)
[2016-11-03] MEDS: VANCOMYCIN HCL 1,000 MG in DEXTROSE 5%-WATER 250 ML IV SCH (07:02)
[2016-11-03 07:50] LABS: ABSOLUTE LYMPHOCYTES (AUTO) 0.7 10^3/uL (0.5-4.7); ABSOLUTE MONOCYTES (AUTO) 0.3 10^3/uL (0.1-1.4); ABSOLUTE NEUT (AUTO) 11.1 10^3/uL (1.7-8.2); BASOPHILS % (AUTO) 0.2 % (0-2); HEMATOCRIT 44.2 % (36.0-47.0); HEMOGLOBIN 14.7 g/dL (12.0-15.5); HGB HCT DIFFERENCE -0.1; LYMPHOCYTES % (AUTO) 5.6 % (13-45); MEAN CORPUSCULAR HEMOGLOBIN 29.6 pg (27.0-33.4); MEAN CORPUSCULAR HGB CONC 33.3 g/dL (32.0-36.0); MEAN CORPUSCULAR VOLUME 89 fl (80-97); MONOCYTES % (AUTO) 2.7 % (3-13); RED BLOOD COUNT 4.97 10^6/uL (3.72-5.28); RED CELL DISTRIBUTION WIDTH 14.2 % (11.5-14.0); SEGMENTED NEUTROPHILS % (AUTO) 91.5 % (42-78); WHITE BLOOD COUNT 12.2 10^3/uL (4.0-10.5)
[2016-11-03 07:56] LABS: CREATININE RESULT 0.68 mg/dL (0.52-1.25)
[2016-11-03] MEDS: IPRATROPIUM/ALBUTEROL 0.5-2.5 MG/3 ML AMPUL NEB SCH ×3 (08:22→20:14)
[2016-11-03] MEDS: FUROSEMIDE 20 MG TABLET PO SCH (08:24)
[2016-11-03] MEDS: EZETIMIBE 10 MG TABLET PO SCH (09:40)
[2016-11-03] MEDS: BUDESONIDE/FORMOTEROL 160-4.5 MCG 60 PUFF/6 GM MDI IH SCH ×2 (09:40→22:11)
[2016-11-03] MEDS: FLUTICASONE NASAL SPRAY 50 MCG/SPRY 120 SPRAY/16 GM NAREB SCH ×2 (09:40→22:11)
[2016-11-03] MEDS: BUSPIRONE HCL 10 MG TABLET PO SCH ×2 (09:40→17:32)
[2016-11-03] MEDS: ASPIRIN 325 MG TABLET PO SCH ×2 (09:40→17:32)
[2016-11-03] MEDS: DILTIAZEM HCL 120 MG CAP.SR.24H PO SCH ×2 (09:40→22:10)
[2016-11-03] MEDS: OXYBUTYNIN CHLORIDE 5 MG TABLET PO SCH ×2 (09:41→17:32)
[2016-11-03] MEDS: THEOPHYLLINE ANHYDROUS 300 MG TAB.SR.12H PO SCH ×2 (09:41→22:10)
[2016-11-03] MEDS: MELOXICAM 15 MG TABLET PO SCH (09:41)
[2016-11-03] MEDS: TIOTROPIUM BROMIDE DPI 5 CAP/KIT (18 MCG/CAP) IH SCH (09:41)
[2016-11-03] MEDS: ENOXAPARIN SODIUM INJ 40 MG/0.4 ML DISP.SYRIN SUBCUT SCH (09:41)
[2016-11-03] MEDS: ROFLUMILAST 500 MCG TABLET PO SCH (09:41)
[2016-11-03] MEDS: GUAIFENESIN SYRP 200 MG/10 ML UDC PO PRN ×2 (11:00→17:32)
[2016-11-03] MEDS: OXYCODONE-ACETAMINOPHEN 5-325 MG TABLET PO PRN ×2 (11:01→17:32)
[2016-11-03] MEDS: VANCOMYCIN HCL 1,500 MG in DEXTROSE 5%-WATER 250 ML IV SCH ×2 (14:38→22:09)
--- NOTE | 2016-11-03 15:59 | PDOC PROGRESS REPORT ---
Subjective Progress Note for:: 11/03/16 Subjective:: Feeling about the same although the cough is becoming productive at this time Physical Exam Vital Signs: Temp Pulse Resp BP Pulse Ox 98.7 F 132 H 18 113/68 91 L 11/03/16 11:43 11/03/16 14:07 11/03/16 14:07 11/03/16 11:43 11/03/16 15:52 Pulse Oximeter Continuous Start: 11/03/16 15: 26 Freq: RTQ4 Status: Active Document 11/03/16 15:52 LDA (Rec: 11/03/16 15:52 LDA [email or web address]) Pulse Oximetry Assessment Oxygen Saturation (92-100) 91 Oxygen Flow Rate (L/min) 6 Oxygen Delivery Method Nasal Cannula Equipment Usage Initial Set Up Continuous Pulse Oximeter 24 Hour Charge Charge Now Continuous SpO2 Machine # [id number] Intake & Output 11/02/16 11/03/16 11/04/16 06:59 06:59 06:59 Intake Total 1720 600 Output Total 500 Balance 1220 600 Weight 103 kg General appearance: PRESENT: cooperative, disheveled, mild distress, obese, well -developed Head exam: PRESENT: atraumatic, normocephalic Eye exam: PRESENT: conjunctiva pale, EOMI Mouth exam: PRESENT: moist, neck supple, tongue midline Neck exam: ABSENT: carotid bruit, JVD, lymphadenopathy, thyromegaly Respiratory exam: PRESENT: decreased breath sounds - Greatest in left anterior chest wall, prolonged expiratory phas, rhonchi, symmetrical. ABSENT: accessory muscle use, chest wall tenderness, clear to auscultation elena, retraction, stridor, wheezes Cardiovascular exam: PRESENT: RRR, +S1, +S2 Pulses: PRESENT: normal radial pulses GI/Abdominal exam: PRESENT: normal bowel sounds, soft. ABSENT: distended, guarding, mass, organolmegaly, rebound, tenderness Rectal exam: PRESENT: deferred Musculoskeletal exam: PRESENT: normal inspection Neurological exam: PRESENT: alert, awake Psychiatric exam: PRESENT: normal mood Skin exam: PRESENT: dry, warm Results Laboratory Results: 11/03/16 07:00 11/03/16 07:00 11/03/16 11/03/16 07:00 07:00 WBC 12.2 H RBC 4.97 Hgb 14.7 Hct 44.2 MCV 89 MCH 29.6 MCHC 33.3 RDW 14.2 H Plt Count 285 Seg Neutrophils % 91.5 H Lymphocytes % 5.6 L Monocytes % 2.7 L Eosinophils % 0.0 Basophils % 0.2 Absolute Neutrophils 11.1 H Absolute Lymphocytes 0.7 Absolute Monocytes 0.3 Absolute Eosinophils 0.0 Absolute Basophils 0.0 Creatinine 0.68 Est GFR ( Amer) > 60 Est GFR (Non-Af Amer) > 60 Impressions: Chest CT 11/02/16 00:00 IMPRESSION: 1. Interval worsening includes an enlarged 5.5 cm left suprahilar mass, large left upper lobar consolidate, and small right suprahilar consolidate. Infectious, inflammatory, neoplastic processes are in the differential diagnosis. 2. No evidence of pulmonary embolus. Chest X-Ray 11/02/16 00:36 IMPRESSION: Increased 5.3 cm left perihilar opacity. Differential diagnosis includes malignancy. Current evaluation with pre and post IV contrast CT of the chest recommended. Chest/Abdomen CTA 11/02/16 02:49 IMPRESSION: 1. Interval worsening includes an enlarged 5.5 cm left suprahilar mass, large left upper lobar consolidate, and small right suprahilar consolidate. Infectious, inflammatory, neoplastic processes are in the differential diagnosis. 2. No evidence of pulmonary embolus. Assessment & Plan - Diagnosis (1) Left upper lobe pneumonia Qualifiers: Pneumonia type: due to unspecified organism Qualified Code(s): J18.1 - Lobar pneumonia, unspecified organism Is this a current diagnosis for this admission?: Yes Plan: Beginning to produce yellow phlegm slight increase in white count (2) Mass of left lung Is this a current diagnosis for this admission?: Yes Plan: Chest CT scan indicates possible distal left main or left upper lobe early upper left upper lobe lesion as well as supra left hilar adenopathy discussed with radiology they felt that this is best approachable with bronchoscopy. Spoke with anesthesiology was very wary approaching patient requested a cardiology consult (3) Obstructive chronic bronchitis with exacerbation Is this a current diagnosis for this admission?: Yes (4) Oxygen dependent Is this a current diagnosis for this admission?: Yes Plan: Continuous pulse oximetry
--- NOTE | 2016-11-03 16:17 | PDOC PROGRESS REPORT ---
Subjective Progress Note for:: 11/03/16 Subjective:: Patient is seen on rounds. She is sitting on the side of bed. She is mildly tachypneic and tachycardic at rest. SPO2 on 4 l/min via n/c and her SPO2 is 90- 92%. She has desaturated into the 70s with exertion. She is beginning to cough productively thick yellow secretions. Dr Soler was just in to see her and is planning on bronchoscopy tomorrow. She has significant left upper lobe collapse. CT of the thorax was shown to patient and with all questions answered.. Patient is experiencing retrosternal pain and left scapular pain. She admits to dyspnea with minimal exertion which is much worse than her norm. She denies any other symptoms. Remaining review of systems is negative Physical Exam Vital Signs: Temp Pulse Resp BP Pulse Ox 98.8 F 124 H 16 116/66 91 L 11/03/16 15:33 11/03/16 15:33 11/03/16 15:33 11/03/16 15:33 11/03/16 15:52 Pulse Oximeter Continuous Start: 11/03/16 15: 26 Freq: RTQ4 Status: Active Document 11/03/16 15:52 LDA (Rec: 11/03/16 15:52 LDA [email or web address]) Pulse Oximetry Assessment Oxygen Saturation (92-100) 91 Oxygen Flow Rate (L/min) 6 Oxygen Delivery Method Nasal Cannula Equipment Usage Initial Set Up Continuous Pulse Oximeter 24 Hour Charge Charge Now Continuous SpO2 Machine # [id number] Intake & Output 11/02/16 11/03/16 11/04/16 06:59 06:59 06:59 Intake Total 1720 600 Output Total 500 Balance 1220 600 Weight 103 kg General appearance: PRESENT: no acute distress, obese, well-developed, well- nourished Head exam: PRESENT: atraumatic, normocephalic Eye exam: PRESENT: conjunctiva pink, EOMI, PERRLA. ABSENT: scleral icterus Ear exam: PRESENT: normal external ear exam Mouth exam: PRESENT: moist, tongue midline Neck exam: PRESENT: carotid bruit Respiratory exam: PRESENT: clear to auscultation elena. ABSENT: rales, rhonchi, wheezes Cardiovascular exam: PRESENT: RRR. ABSENT: diastolic murmur, rubs, systolic murmur Vascular exam: PRESENT: normal capillary refill GI/Abdominal exam: PRESENT: normal bowel sounds, soft. ABSENT: distended, guarding, mass, organolmegaly, rebound, tenderness Rectal exam: PRESENT: deferred Extremities exam: PRESENT: full ROM. ABSENT: calf tenderness, clubbing, pedal edema Musculoskeletal exam: PRESENT: ambulatory, full ROM, normal inspection Neurological exam: PRESENT: alert, awake, oriented to person, oriented to place , oriented to time, oriented to situation, CN II-XII grossly intact. ABSENT: motor sensory deficit Psychiatric exam: PRESENT: appropriate affect, normal mood. ABSENT: homicidal ideation, suicidal ideation Skin exam: PRESENT: abrasion Results Laboratory Results: 11/03/16 07:00 11/03/16 07:00 11/03/16 11/03/16 07:00 07:00 WBC 12.2 H RBC 4.97 Hgb 14.7 Hct 44.2 MCV 89 MCH 29.6 MCHC 33.3 RDW 14.2 H Plt Count 285 Seg Neutrophils % 91.5 H Lymphocytes % 5.6 L Monocytes % 2.7 L Eosinophils % 0.0 Basophils % 0.2 Absolute Neutrophils 11.1 H Absolute Lymphocytes 0.7 Absolute Monocytes 0.3 Absolute Eosinophils 0.0 Absolute Basophils 0.0 Creatinine 0.68 Est GFR ( Amer) > 60 Est GFR (Non-Af Amer) > 60 Impressions: Chest CT 11/02/16 00:00 IMPRESSION: 1. Interval worsening includes an enlarged 5.5 cm left suprahilar mass, large left upper lobar consolidate, and small right suprahilar consolidate. Infectious, inflammatory, neoplastic processes are in the differential diagnosis. 2. No evidence of pulmonary embolus. Chest X-Ray 11/02/16 00:36 IMPRESSION: Increased 5.3 cm left perihilar opacity. Differential diagnosis includes malignancy. Current evaluation with pre and post IV contrast CT of the chest recommended. Chest/Abdomen CTA 11/02/16 02:49 IMPRESSION: 1. Interval worsening includes an enlarged 5.5 cm left suprahilar mass, large left upper lobar consolidate, and small right suprahilar consolidate. Infectious, inflammatory, neoplastic processes are in the differential diagnosis. 2. No evidence of pulmonary embolus. Assessment & Plan - Diagnosis (1) Hypoxemia Plan: Patient had oxygen saturations into the 60's on 4l/min at home prior to arrival here. Improved with IV steroids, nebulizers and NIV. Patient with left upper lobe collapse from unknown etiology, mucous plug or tumor. Dr Soler in planning on bronch tomorrow (2) Left upper lobe pneumonia Qualifiers: Pneumonia type: due to unspecified organism Qualified Code(s): J18.1 - Lobar pneumonia, unspecified organism Is this a current diagnosis for this admission?: Yes Plan: Patient with long history of obstructive bronchitis and COPD on home oxygen. Will cover with typical and atypical organisms pending bronchoscopy or sputum culture (3) Mass of left lung Is this a current diagnosis for this admission?: Yes Plan: Pending bronchoscopy. Will obtain cardiac clearance today (4) Obstructive chronic bronchitis with exacerbation Is this a current diagnosis for this admission?: Yes (5) Oxygen dependent Is this a current diagnosis for this admission?: Yes (6) Chronic diastolic (congestive) heart failure Is this a current diagnosis for this admission?: Yes Plan: PAtient is euvolemic at present - Time Time Spent with patient: 25-34 minutes Critical Time spent with patient: 25-34 minutes Medications reviewed and adjusted accordingly: Yes
--- NOTE | 2016-11-03 20:13 | PDOC CONSULTATION ---
Consultation Consult Date: 11/03/16 Attending physician:: QUINTIN RODRIGUES Consult reason:: Tachycardia, preop evaluation History of Present Illness Admission Date/PCP: 11/02/16 06:28 OLGA MAIER MD Patient complains of: Shortness of breath History of Present Illness: MIKI FROST is a 61 year old female with 4 L oxygen per nasal cannula 24/7 home O2 dependent COPD, who presents to the emergency room for evaluation of above increased dyspnea, chest discomfort and wheezing.She complains of increasing orthopnea and shortness of breath over the last 2 weeks of cough is rhonchorous but nonproductive she denies nausea vomiting but admits to some fevers and chills occasionally has some inspiratory left-sided chest pain she had been O2 dependent for the last 4 years. She has extensive history of smoking but has not smoked in the last 5 years. Patient denied any prior history of myocardial infarction, angina, congestive heart failure, hypertension or diabetes. Patient claims she never had any significant heart problems. Past Medical History Cardiac Medical History: Denies: Atrial Fibrillation, Coronary Artery Disease, DVT, Myocardial Infarction, Hyperlipidema, Hypertension, Pulmonary Embolism Pulmonary Medical History: Reports: Asthma, Bronchitis, Chronic Obstructive Pulmonary Disease (COPD) - O2 4 liters daily, Pneumonia Denies: Sleep Apnea EENT Medical History: Reports: Eyes - Glasses, Ears - Partial hearing loss, Other - Easy bruising Denies: Throat Neurological Medical History: Denies: Hemorrhagic CVA, Ischemic CVA, Seizures Endocrine Medical History: Denies: Diabetes Mellitus Type 1, Diabetes Mellitus Type 2, Hyperthyroidism, Hypothyroidism Renal/ Medical History: Reports: Nephrolithiasis - Recent recurrence of GI Medical History: Denies: Cirrhosis, Gastroesophageal Reflux Disease, Hepatitis, Peptic Ulcer Disease Musculoskeltal Medical History: Reports: Arthritis Psychiatric Medical History: Reports: Depression - Denies anxiety or depression , General Anxiety Disorder Denies: Alcohol Dependency, Substance Abuse, Tobacco Dependency Hematology: Reports: Other - Easy bruising Denies: Anemia Infectious Medical History: Denies: Hepatitis B, Hepatitis C Past Surgical History Past Surgical History: Reports: Section, Orthopedic Surgery, Tonsillectomy Social History Information Source: Patient Lives with: Friend Smoking Status: Former Smoker Frequency of Alcohol Use: None Hx Recreational Drug Use: No Drugs: None Hx Prescription Drug Abuse: No - Advance Directive Resuscitation Status: Full Code Surrogate healthcare decision maker:: Patient's is the surrogate decision-maker Family History Family History: None Parental Family History Reviewed: Yes Children Family History Reviewed: Yes Sibling(s) Family History Reviewed.: Yes Medication/Allergy Home Medications: Acetylcysteine [Mucomist 20% Soln 800 mg/4 ml] 800 mg IH RTBID 11/02/16 Albuterol Sulfate [Proair HFA] 2 puff IH Q4 PRN 11/02/16 Amitriptyline HCl [Elavil 10 Mg Tablet] 10 mg PO QHS 11/02/16 Aspirin [Aspirin 325 mg Tablet] 325 mg PO BID 11/02/16 Budesonide/Formoterol Fumarate [Symbicort Hfa 160-4.5 Mcg Inhaler 6 gm] 2 puff IH Q12 11/02/16 Buspirone HCl [Buspar 10 mg Tablet] 10 mg PO BID 11/02/16 Diltiazem HCl [Diltiazem 12Hr ER] 120 mg PO Q12 11/02/16 Ezetimibe [Zetia 10 mg Tablet] 10 mg PO DAILY 11/02/16 Fluticasone Propionate [Flonase Nasal Att[place] 50 Mcg/[place] 16 gm] 2 sprays NAREB Q12 11/02/16 Furosemide [Lasix 20 mg Tablet] 20 mg PO QAM 11/02/16 Ipratropium/Albuterol Sulfate [Duoneb 3 ml Ampul] 3 ml NEB RTQID 11/02/16 Meloxicam [Mobic 15 mg Tablet] 15 mg PO DAILY 11/02/16 Mirabegron [Myrbetriq] 50 mg PO DAILY 11/02/16 Montelukast Sodium [Singulair 10 mg Tablet] 10 mg PO QHS 11/02/16 Roflumilast [Daliresp 500 mcg Tablet] 500 mcg PO DAILY 11/02/16 Theophylline Anhydrous 300 mg PO Q12 11/02/16 Tiotropium [place] [Spiriva Handihaler 18 mcg/dose (30 Dose)] 1 cap IH DAILY Allergies/Adverse Reactions: asparaginase [Asparaginase] Allergy (Severe, Verified 08/25/16 11:56) throat swells cefaclor [From Ceclor] Allergy (Severe, Verified 08/25/16 11:56) hives,swell levofloxacin [From Levaquin] Allergy (Severe, Verified 08/25/16 11:56) bakers cyst behind knee nickel [Nickel] Allergy (Severe, Verified 08/25/16 11:56) itch,swell ampicillin Allergy (Verified 08/25/16 11:56) azithromycin Allergy (Verified 08/25/16 11:56) cephalexin monohydrate [From Keflex] Allergy (Verified 08/25/16 11:56) codeine [Codeine] Allergy (Verified 08/25/16 11:56) fluticasone propionate [From Advair Diskus] Allergy (Verified 11/02/16 06:34) morphine [Morphine] Allergy (Verified 08/25/16 11:56) moxifloxacin [From Avelox] Allergy (Verified 08/25/16 11:56) Penicillins Allergy (Verified 08/25/16 11:56) salmeterol xinafoate [From Advair Diskus] Allergy (Verified 08/25/16 11:56) Sulfa (Sulfonamide Antibiotics) Allergy (Verified 08/25/16 11:56) sulfamethoxazole [From Bactrim] Allergy (Verified 08/25/16 11:56) trimethoprim [From Bactrim] Allergy (Verified 08/25/16 11:56) Review of Systems Review of Systems: Please see history of present illness and past medical history as wall. Constitutional: Low-grade fever and chills reported Head : No recent chronic headaches, recent head injury. Eyes: No recent eye pain, diplopia, redness, discharge, acute visual changes. Ears: No recent chronic ear pain, acute hearing loss, ear discharge. Oral cavity: No recent ulcerations, bleeding, oral cavity discomfort. Neck: No recent acute neck pain reported. Hematologic: No recent easy bruising or bleeding or hematologic malignancy reported. Lymphatic: No recent lymphatic malignancy, chronic lymphadenopathy reported yet Cardiovascular system review: See history of present illness. Respiratory system review: N recent cough with scant sputum production, history of severe COPD on oxygen but no hemoptysis, blood clots in the lungs reported. Mild Shortness of breath on exertion Gastrointestinal system review: Negative for any recent acute or chronic abdominal pain, hematemesis, melena, recent change in bowel habits. Genitourinary system review: No recent acute or chronic hematuria, flank pain, UTI etc. reported. Skin system review: Negative for any recent abnormal bruising, no rash, no pruritus reported. Neurologic: No prior history of strokes, mini strokes, seizure disorder. Psychologic: No history of major psychosis or major depression reported. Musculoskeletal: Minor aches and pains reported. No acute joint swelling reported. Endocrine: No recent polyuria, polydipsia, recent heat or cold intolerance. Physical Exam Vital Signs: Temp Pulse Resp BP Pulse Ox 98.8 F 124 H 16 116/66 91 L 11/03/16 15:33 11/03/16 15:33 11/03/16 15:33 11/03/16 15:33 11/03/16 15:52 Pulse Oximeter Continuous Start: 11/03/16 15: 26 Freq: RTQ4 Status: Active Document 11/03/16 15:52 LDA (Rec: 11/03/16 15:52 LDA [id number]) Pulse Oximetry Assessment Oxygen Saturation (92-100) 91 Oxygen Flow Rate (L/min) 6 Oxygen Delivery Method Nasal Cannula Equipment Usage Initial Set Up Continuous Pulse Oximeter 24 Hour Charge Charge Now Continuous SpO2 Machine # [id number] Intake & Output 11/02/16 11/03/16 11/04/16 06:59 06:59 06:59 Intake Total 1720 2620 Output Total 500 Balance 1220 2620 Weight 103 kg Exam: GENERAL: well-nourished and in no acute distress. Alert and oriented x3 HEAD: Atraumatic, normocephalic. EYES: Pupils equal round and reactive to light, extraocular movements intact, sclera anicteric, conjunctiva are normal. ENT: TMs normal, nares patent, oropharynx clear without exudates. Moist mucous membranes. No oral ulcerations or bleeding gums noted NECK: supple without lymphadenopathy. Trachea is central. No cervical or axillary lymphadenopathy noted. Carotids are 2+, JVD WNL LUNGS: Respiration seems nonlabored, no significant accessory muscle action noted. Bilateral wheezes rales or rhonchi noted. No significant dullness noted on percussion. CHEST: Palpation of the chest wall shows no significant chest wall tenderness. No other significant abnormalities noted. HEART: Bradford HARNESS [employer]TER, No PSH, 1/6 NINO aortic area, 1/6 [place] systolic murmur mitral area, no rubs, no gallops. ABDOMEN: Soft, no significant tenderness appreciated, normoactive bowel sounds. No guarding, no rebound. No rigidity noted . No masses appreciated. EXTREMITIES: Pedal pulses are 1-2+, no calf tenderness noted. No clubbing or cyanosis.trace to 1+ pedal edema noted NEUROLOGICAL: Focused neurological exam showed no significant neurologic deficit. Normal speech, no focal weakness appreciated. PSYCH: Normal mood, normal affect. Judgment and insight within normal limits. SKIN: No significant ecchymosis, rash, ulcerations or signs of pruritus noted. MUSCULOSKELETAL EXAM: No significant joint swelling noted. Results Laboratory Results: 11/03/16 07:00 11/03/16 07:00 11/03/16 11/03/16 07:00 07:00 WBC 12.2 H RBC 4.97 Hgb 14.7 Hct 44.2 MCV 89 MCH 29.6 MCHC 33.3 RDW 14.2 H Plt Count 285 Seg Neutrophils % 91.5 H Lymphocytes % 5.6 L Monocytes % 2.7 L Eosinophils % 0.0 Basophils % 0.2 Absolute Neutrophils 11.1 H Absolute Lymphocytes 0.7 Absolute Monocytes 0.3 Absolute Eosinophils 0.0 Absolute Basophils 0.0 Creatinine 0.68 Est GFR ( Amer) > 60 Est GFR (Non-Af Amer) > 60 EKG Comments: Sinus tachycardia but without any acute ST-T wave changes Impressions: Chest CT 11/02/16 00:00 IMPRESSION: 1. Interval worsening includes an enlarged 5.5 cm left suprahilar mass, large left upper lobar consolidate, and small right suprahilar consolidate. Infectious, inflammatory, neoplastic processes are in the differential diagnosis. 2. No evidence of pulmonary embolus. Chest X-Ray 11/02/16 00:36 IMPRESSION: Increased 5.3 cm left perihilar opacity. Differential diagnosis includes malignancy. Current evaluation with pre and post IV contrast CT of the chest recommended. Chest/Abdomen CTA 11/02/16 02:49 IMPRESSION: 1. Interval worsening includes an enlarged 5.5 cm left suprahilar mass, large left upper lobar consolidate, and small right suprahilar consolidate. Infectious, inflammatory, neoplastic processes are in the differential diagnosis. 2. No evidence of pulmonary embolus. Assessment & Plan - Diagnosis (1) Chest pain Qualifiers: Chest pain type: unspecified Qualified Code(s): R07.9 - Chest pain, unspecified Is this a current diagnosis for this admission?: Yes (2) Left upper lobe pneumonia Qualifiers: Pneumonia type: due to unspecified organism Qualified Code(s): J18.1 - Lobar pneumonia, unspecified organism Is this a current diagnosis for this admission?: Yes (3) Mass of left lung Is this a current diagnosis for this admission?: Yes (4) Obstructive chronic bronchitis with exacerbation Is this a current diagnosis for this admission?: Yes (5) Hypoxemia Is this a current diagnosis for this admission?: Yes (6) Tachycardia Is this a current diagnosis for this admission?: Yes - Notes Notes: Preop cardiovascular evaluation: Patient for bronchoscopy tomorrow. This is a relatively low risk procedure. Patient does have tachycardia. Have ordered a BNP level and also a 2D echocardiogram to be performed in the morning. I feel patient would be a satisfactory candidate for bronchoscopy as I am told that it is a therapeutic as well as diagnostic bronchoscopy. Patient is felt to have mucous plugging and relieving that might actually help patient. Chest pain: Pleuritic in nature therefore felt to be related to pneumonia. So far EKGs has been negative. Cardiac enzymes has been negative. Mass in the left lung: To be further evaluated with bronchoscopy. Hypoxemia: Continue oxygen supplementation. Patient being followed by cutter and p[facility] clippings. Tachycardia: Have ordered a BNP level. Will obtain a TSH level. Continue Cardizem. - Time Time Spent: 30 to 50 Minutes - CODE STATUS was discussed, patient remains full code. Surrogate decision-maker patient's . Multiple medical problems were addressed. More than 50% of the time spent coordinating care, discussing management plans with involved caregivers. Management plans discussed with involved personnels. Medical decision making was of moderate to high complexity , patient's has multiple comorbidities. Medications reviewed and adjusted accordingly: Yes
[2016-11-03] MEDS: ACETYLCYSTEINE 20% SOLN 800 MG/4 ML VIAL.NEB IH SCH (20:15)
[2016-11-03] MEDS: AMITRIPTYLINE HCL 10 MG TABLET PO SCH (22:10)
[2016-11-03] MEDS: MONTELUKAST SODIUM 10 MG TABLET PO SCH (22:12)
[2016-11-04] MEDS: AZTREONAM 1 GM in DEXTROSE 5%-WATER 50 ML IV SCH ×3 (05:29→22:01)
[2016-11-04] MEDS: VANCOMYCIN HCL 1,500 MG in DEXTROSE 5%-WATER 250 ML IV SCH (05:29)
[2016-11-04] MEDS: METHYLPREDNISOLONE INJ 125 MG/2 ML SDV IV SCH ×3 (05:30→22:02)
[2016-11-04 06:58] LABS: HEMOGLOBIN 14.1 g/dL (12.0-15.5); HGB HCT DIFFERENCE 0.3; MEAN CORPUSCULAR HEMOGLOBIN 29.3 pg (27.0-33.4); MEAN CORPUSCULAR HGB CONC 33.6 g/dL (32.0-36.0); MEAN CORPUSCULAR VOLUME 87 fl (80-97); RED BLOOD COUNT 4.81 10^6/uL (3.72-5.28); RED CELL DISTRIBUTION WIDTH 14.1 % (11.5-14.0); WHITE BLOOD COUNT 19.3 10^3/uL (4.0-10.5)
[2016-11-04 07:28] LABS: BASOPHILS % (MANUAL) 0 % (0-2); EOSINOPHILS % (MANUAL) 0 % (0-6); LYMPHOCYTES % (MANUAL) 2 % (13-45); TOTAL CELLS COUNTED 100
[2016-11-04 07:29] LABS: RBC MORPHOLOGY COMMENT NORMO-CYTIC/CHROMIC; TOXIC GRANULATION SLIGHT
[2016-11-04 07:32] LABS: ANION GAP 14 (5-19); BLOOD UREA NITROGEN 24 mg/dL (7-20); CALCIUM 10.4 mg/dL (8.4-10.2); CARBON DIOXIDE 23 mmol/L (22-30); CHLORIDE 105 mmol/L (98-107); CREATININE RESULT 0.73 mg/dL (0.52-1.25); GLUCOSE 136 mg/dL (75-110); MAGNESIUM 2.2 mg/dL (1.6-2.3); POTASSIUM 4.3 mmol/L (3.6-5.0); SODIUM 142.3 mmol/L (137-145)
[2016-11-04] MEDS: IPRATROPIUM/ALBUTEROL 0.5-2.5 MG/3 ML AMPUL NEB SCH ×3 (08:03→19:35)
[2016-11-04] MEDS: ACETYLCYSTEINE 20% SOLN 800 MG/4 ML VIAL.NEB IH SCH ×2 (08:08→19:35)
[2016-11-04 10:04] LABS: ARTERIAL BLOOD BASE EXCESS 0 mmol/L; ARTERIAL BLOOD O2 SATURATION 93.9 % (94-98)
[2016-11-04] MEDS ORDERED: TOBRAMYCIN SULFATE INJ 80 MG/2 ML VIAL NEB SCH (10:30)
[2016-11-04] MEDS: FUROSEMIDE 20 MG TABLET PO SCH (10:58)
[2016-11-04] MEDS: ASPIRIN 325 MG TABLET PO SCH ×2 (10:59→17:29)
[2016-11-04] MEDS: MELOXICAM 15 MG TABLET PO SCH (11:00)
[2016-11-04] MEDS ORDERED: LEVALBUTEROL HCL NEB 0.63 MG/3 ML AMPUL NEB ONE (11:00)
[2016-11-04] MEDS ORDERED: TOBRAMYCIN SULFATE NEB 40 MG/ML 30 ML NEB ONE (11:00)
[2016-11-04] MEDS: EZETIMIBE 10 MG TABLET PO SCH (11:00)
[2016-11-04] MEDS: BUDESONIDE/FORMOTEROL 160-4.5 MCG 60 PUFF/6 GM MDI IH SCH ×2 (11:01→22:02)
[2016-11-04] MEDS: BUSPIRONE HCL 10 MG TABLET PO SCH ×2 (11:01→17:30)
[2016-11-04] MEDS: ROFLUMILAST 500 MCG TABLET PO SCH (11:02)
[2016-11-04] MEDS: OXYBUTYNIN CHLORIDE 5 MG TABLET PO SCH ×2 (11:02→17:29)
[2016-11-04] MEDS: FLUTICASONE NASAL SPRAY 50 MCG/SPRY 120 SPRAY/16 GM NAREB SCH ×2 (11:03→22:02)
[2016-11-04] MEDS: DILTIAZEM HCL 120 MG CAP.SR.24H PO SCH ×2 (11:03→22:03)
[2016-11-04] MEDS: THEOPHYLLINE ANHYDROUS 300 MG TAB.SR.12H PO SCH ×2 (11:04→22:03)
[2016-11-04] MEDS: ENOXAPARIN SODIUM INJ 40 MG/0.4 ML DISP.SYRIN SUBCUT SCH (11:04)
--- NOTE | 2016-11-04 11:31 | XCELERA REPORT ---
[address] [address] Transthoracic Echocardiogram Report Name: MIKI FROST Age: 61 yrs Gender: Female : 1955 Patient Status: Inpatient Patient Location: [address] [place] [address] Study Date: 11/04/2016 10:11 AM Height: 67 in Weight: 227 lb BSA: 2.1 m2 Procedure: A complete two-dimensional transthoracic echocardiogram was performed (2D, M-mode, spectral and color flow Doppler). The study was technically difficult with many images being suboptimal in quality. Reason For Study: Tachycardia, preop evaluation Ordering Physician: LJ JORDAN Performed By: Jazmine Rosario Interpretation Summary The left ventricular ejection fraction is normal. There is normal left ventricular wall thickness. The left ventricle is grossly normal size. Doppler measurements suggest pseudonormalized left ventricular relaxation, which is associated with grade II/IV or mild to moderate diastolic dysfunction Wall motion cannot be accurately commented on, but no definite regional wall motion abnormalities noted. The right ventricular systolic function is normal. The right atrium is normal in size The left atrial size is normal. There is a trace amount of mitral regurgitation There is no mitral valve stenosis. No aortic regurgitation is present. There is no aortic valve stenosis There is a trace or physiologic amount of tricuspid regurgitation Tricuspid regurgitation jet envelope not well defined to measure RV systolic pressure accurately. There is no pericardial effusion. MMode/2D Measurements & Calculations RVDd: 2.5 cm LVIDd: 5.2 cm FS: 41.9 % Ao root diam: 3.0 cm IVSd: 0.86 cm LVIDs: 3.0 cm EDV(Teich): 128.1 ml LVPWd: 0.88 cm ESV(Teich): 35.2 ml Ao root area: 6.9 cm2 EF(Teich): 72.5 % Doppler Measurements & Calculations MV E max cholo: MV dec slope: Ao V2 max: LV V1 max P.4 cm/sec 215.5 cm/sec 7.5 mmHg MV A max cholo: 424.2 cm/sec2 Ao max PG: LV V1 max: 135.5 cm/sec MV dec time: 18.6 mmHg 137.1 cm/sec MV E/A: 0.66 0.21 sec PA V2 max: TR max cholo: 117.1 cm/sec 183.3 cm/sec PA max P.5 mmHgTR max P.5 mmHg Left Ventricle The left ventricle is grossly normal size. There is normal left ventricular wall thickness. The left ventricular ejection fraction is normal. Doppler measurements suggest pseudonormalized left ventricular relaxation, which is associated with grade II/IV or mild to moderate diastolic dysfunction. Wall motion cannot be accurately commented on, but no definite regional wall motion abnormalities noted. Right Ventricle The right ventricle is grossly normal size. There is normal right ventricular wall thickness. The right ventricular systolic function is normal. Atria The right atrium is normal in size. The left atrial size is normal. Interarterial septum not well visualized and not well dopplered. Cannot comment on ASD/PFO presence. Mitral Valve The mitral valve is grossly normal. There is no mitral valve stenosis. There is a trace amount of mitral regurgitation. Aortic Valve The aortic valve is grossly normal. There is no aortic valve stenosis. No aortic regurgitation is present. Tricuspid Valve The tricuspid valve is not well visualized, but is grossly normal. There is no tricuspid stenosis. There is a trace or physiologic amount of tricuspid regurgitation. Tricuspid regurgitation jet envelope not well defined to measure RV systolic pressure accurately. Pulmonic Valve The pulmonic valve is not well visualized. Great Vessels The aortic root is not well visualized but is probably normal size. The inferior vena cava appeared normal and decreased > 50% with respiration (RAP 5-10 mmHg). Effusions There is no pericardial effusion. : LJ JORDAN > Lj Jordan
[2016-11-04 11:51] LABS: FREE T3 2.48 pg/mL (2.77-5.27)
--- NOTE | 2016-11-04 13:22 | PDOC PROGRESS REPORT ---
Subjective Progress Note for:: 11/04/16 Subjective:: Patient is seen on rounds. She is resting comfortably in bed. SPO2 on 4 l/min via n/c and her SPO2 is 90-92%. She has desaturated into the 70s with exertion. She is beginning to cough productively thick yellow secretions. Dr Soler was just in to see her and is planning on bronchoscopy tomorrow. She has significant left upper lobe collapse. CT of the thorax was shown to patient and with all questions answered.. Patient is experiencing retrosternal pain and left scapular pain. She admits to dyspnea with minimal exertion which is much worse than her norm. She denies any other symptoms. Remaining review of systems is negative Physical Exam Vital Signs: Temp Pulse Resp BP Pulse Ox 98.7 F 125 H 19 124/76 93 11/04/16 11:55 11/04/16 11:55 11/04/16 11:55 11/04/16 11:55 11/04/16 11:55 Pulse Oximeter Continuous Start: 11/03/16 15: 26 Freq: RTQ4 Status: Active Document 11/04/16 08:05 [facility] [place]Rec: 11/04/16 09:33 [facility] [id number] Pulse Oximetry Assessment Oxygen Saturation (92-100) 93 Oxygen Flow Rate (L/min) 5 Oxygen Delivery Method Nasal Cannula Fraction of Inspired Oxygen (FIO2) 40 Equipment Usage Equipment in Use Continuous SpO2 Machine # [id number] Intake & Output 11/03/16 11/04/16 11/05/16 06:59 06:59 06:59 Intake Total 1720 3420 Output Total 500 Balance 1220 3420 Weight 103 kg General appearance: PRESENT: no acute distress, obese, well-developed, well- nourished Head exam: PRESENT: atraumatic, normocephalic Eye exam: PRESENT: conjunctiva pink, EOMI, PERRLA. ABSENT: scleral icterus Ear exam: PRESENT: normal external ear exam Mouth exam: PRESENT: moist, tongue midline Neck exam: ABSENT: carotid bruit, JVD, lymphadenopathy, thyromegaly Respiratory exam: PRESENT: decreased breath sounds, rhonchi, symmetrical. ABSENT: rales, wheezes Cardiovascular exam: PRESENT: RRR, tachycardia Pulses: PRESENT: normal carotid pulses, normal radial pulses Vascular exam: PRESENT: normal capillary refill GI/Abdominal exam: PRESENT: normal bowel sounds, soft. ABSENT: distended, guarding, mass, organolmegaly, rebound, tenderness Extremities exam: PRESENT: full ROM. ABSENT: calf tenderness, clubbing, pedal edema Musculoskeletal exam: PRESENT: ambulatory Neurological exam: PRESENT: alert, awake, oriented to person, oriented to place , oriented to time, oriented to situation, CN II-XII grossly intact. ABSENT: motor sensory deficit Psychiatric exam: PRESENT: appropriate affect, normal mood. ABSENT: homicidal ideation, suicidal ideation Skin exam: PRESENT: dry, intact, warm. ABSENT: cyanosis, rash Results Laboratory Results: 11/04/16 06:37 11/04/16 06:37 11/03/16 11/04/16 11/04/16 21:30 06:37 06:37 WBC 19.3 H RBC 4.81 Hgb 14.1 Hct 42.0 MCV 87 MCH 29.3 MCHC 33.6 RDW 14.1 H Plt Count 291 Seg Neutrophils % Not Reportable Lymphocytes % Not Reportable Monocytes % Not Reportable Eosinophils % Not Reportable Basophils % Not Reportable Absolute Neutrophils Not Reportable Absolute Lymphocytes Not Reportable Absolute Monocytes Not Reportable Absolute Eosinophils Not Reportable Absolute Basophils Not Reportable Carbonic Acid HCO3/H2CO3 Ratio ABG pH ABG pCO2 ABG pO2 ABG HCO3 ABG O2 Saturation ABG Base Excess FiO2 Sodium 142.3 Potassium 4.3 Chloride 105 Carbon Dioxide 23 Anion Gap 14 BUN 24 H Creatinine 0.73 Est GFR ( Amer) > 60 Est GFR (Non-Af Amer) > 60 Glucose 136 H Calcium 10.4 H Magnesium 2.2 TSH 0.23 L Free T4 Free T3 pg/mL 11/04/16 11/04/16 06:37 09:50 WBC RBC Hgb Hct MCV MCH MCHC RDW Plt Count Seg Neutrophils % Lymphocytes % Monocytes % Eosinophils % Basophils % Absolute Neutrophils Absolute Lymphocytes Absolute Monocytes Absolute Eosinophils Absolute Basophils Carbonic Acid 1.07 HCO3/H2CO3 Ratio 22:1 ABG pH 7.44 ABG pCO2 35.4 ABG pO2 65.9 L ABG HCO3 23.6 ABG O2 Saturation 93.9 L ABG Base Excess 0 FiO2 5L Sodium Potassium Chloride Carbon Dioxide Anion Gap BUN Creatinine Est GFR ( Amer) Est GFR (Non-Af Amer) Glucose Calcium Magnesium TSH Free T4 1.34 Free T3 pg/mL 2.48 L 11/02/16 11:32 Sputum Gram Stain - Final 11/02/16 11:32 Sputum Sputum Culture - Final Pseudomonas Aeruginosa Normal Patsy 11/03/16 21:30 NT-Pro-B Natriuret Pep 234 Impressions: Chest CT 11/02/16 00:00 IMPRESSION: 1. Interval worsening includes an enlarged 5.5 cm left suprahilar mass, large left upper lobar consolidate, and small right suprahilar consolidate. Infectious, inflammatory, neoplastic processes are in the differential diagnosis. 2. No evidence of pulmonary embolus. Chest X-Ray 11/02/16 00:36 IMPRESSION: Increased 5.3 cm left perihilar opacity. Differential diagnosis includes malignancy. Current evaluation with pre and post IV contrast CT of the chest recommended. Chest/Abdomen CTA 11/02/16 02:49 IMPRESSION: 1. Interval worsening includes an enlarged 5.5 cm left suprahilar mass, large left upper lobar consolidate, and small right suprahilar consolidate. Infectious, inflammatory, neoplastic processes are in the differential diagnosis. 2. No evidence of pulmonary embolus. Assessment & Plan - Diagnosis (1) Hypoxemia Is this a current diagnosis for this admission?: Yes Plan: Patient had oxygen saturations into the 60's on 4l/min at home prior to arrival here. Improved with IV steroids, nebulizers and NIV. Patient with left upper lobe collapse from unknown etiology, mucous plug or tumor. Dr Soler in planning on bronch tomorrow (2) Left upper lobe pneumonia Qualifiers: Pneumonia type: due to unspecified organism Qualified Code(s): J18.1 - Lobar pneumonia, unspecified organism Is this a current diagnosis for this admission?: Yes Plan: Patient with long history of obstructive bronchitis and COPD on home oxygen. Will cover with typical and atypical organisms pending bronchoscopy or sputum culture (3) Mass of left lung Is this a current diagnosis for this admission?: Yes Plan: Pending bronchoscopy. Will obtain cardiac clearance today (4) Obstructive chronic bronchitis with exacerbation Is this a current diagnosis for this admission?: Yes (5) Oxygen dependent Is this a current diagnosis for this admission?: Yes (6) Chronic diastolic (congestive) heart failure Is this a current diagnosis for this admission?: Yes Plan: PAtient is euvolemic at present - Time Time Spent with patient: 25-34 minutes Critical Time spent with patient: 15-24 minutes Medications reviewed and adjusted accordingly: Yes
[2016-11-04] MEDS ORDERED: LEVALBUTEROL HCL NEB 0.63 MG/3 ML AMPUL NEB SCH (14:00)
--- NOTE | 2016-11-04 16:59 | Physician Advisory Note ---
Physician Advisor ProgressNote .: [facility], I have reviewed the medical record for this patient. Physician Advisor Statement: Please consider documenting, if you agree: 1. "Acute on Chronic Hypoxemic Respiratory Failure" (pt having O2 sats in the 60s while on her usual 4L O2 at home prior to arrival, (+) SOB, ...) 2. "SAKSHI pneumonia, suspect " (gram negative? gram positive? ...) Thanks! CK
[2016-11-04] MEDS: TOBRAMYCIN SULFATE NEB 40 MG/ML 30 ML NEB SCH (19:35)
[2016-11-04] MEDS: MONTELUKAST SODIUM 10 MG TABLET PO SCH (22:03)
[2016-11-04] MEDS: AMITRIPTYLINE HCL 10 MG TABLET PO SCH (22:04)
[2016-11-05 03:05] VITALS: BP 142/84
[2016-11-05] MEDS: GUAIFENESIN SYRP 200 MG/10 ML UDC PO PRN (03:43)
[2016-11-05 06:34] LABS: CREATININE RESULT 0.77 mg/dL (0.52-1.25)
[2016-11-05] MEDS: AZTREONAM 1 GM in DEXTROSE 5%-WATER 50 ML IV SCH ×2 (06:45→14:23)
[2016-11-05] MEDS: METHYLPREDNISOLONE INJ 125 MG/2 ML SDV IV SCH (06:45)
[2016-11-05] MEDS: ACETYLCYSTEINE 20% SOLN 800 MG/4 ML VIAL.NEB IH SCH (08:28)
[2016-11-05] MEDS: IPRATROPIUM/ALBUTEROL 0.5-2.5 MG/3 ML AMPUL NEB SCH ×2 (08:28→14:33)
[2016-11-05] MEDS: TOBRAMYCIN SULFATE NEB 40 MG/ML 30 ML NEB SCH (08:28)
[2016-11-05] MEDS: ENOXAPARIN SODIUM INJ 40 MG/0.4 ML DISP.SYRIN SUBCUT SCH (10:53)
[2016-11-05] MEDS: DILTIAZEM HCL 120 MG CAP.SR.24H PO SCH (11:03)
[2016-11-05] MEDS: FUROSEMIDE 20 MG TABLET PO SCH (11:04)
[2016-11-05] MEDS: EZETIMIBE 10 MG TABLET PO SCH (11:04)
[2016-11-05] MEDS: BUDESONIDE/FORMOTEROL 160-4.5 MCG 60 PUFF/6 GM MDI IH SCH (11:05)
[2016-11-05] MEDS: ASPIRIN 325 MG TABLET PO SCH (11:05)
[2016-11-05] MEDS: THEOPHYLLINE ANHYDROUS 300 MG TAB.SR.12H PO SCH (11:05)
[2016-11-05] MEDS: BUSPIRONE HCL 10 MG TABLET PO SCH (11:05)
[2016-11-05] MEDS: FLUTICASONE NASAL SPRAY 50 MCG/SPRY 120 SPRAY/16 GM NAREB SCH (11:05)
[2016-11-05] MEDS: MELOXICAM 15 MG TABLET PO SCH (11:06)
[2016-11-05] MEDS: OXYBUTYNIN CHLORIDE 5 MG TABLET PO SCH (11:07)
[2016-11-05] MEDS: ROFLUMILAST 500 MCG TABLET PO SCH (11:07)
--- NOTE | 2016-11-05 13:20 | PDOC TRANSFER SUMMARY ---
General Admission Date/PCP: 11/02/16 06:28 OLGA MAIER MD Admission Date: 11/02/16 Transfer Date: 11/05/16 Accepting Facility: [facility] Accepting Physician: Dr Cowan Resuscitation Status: Full Code - Transfer Diagnosis (1) Hypoxemia Is this a current diagnosis for this admission?: Yes Diagnosis Summary: Patient requiring 4l/min n/c to keep SPO2 >90% (2) Left upper lobe pneumonia Is this a current diagnosis for this admission?: Yes Diagnosis Summary: Psuedomonas with multiple drug allergies. Patient is on Azactam q8h and Tobramycin nebulizer q12 (3) Mass of left lung Is this a current diagnosis for this admission?: Yes Diagnosis Summary: Patient needs bronch biopsy for diagnosis (4) Obstructive chronic bronchitis with exacerbation Is this a current diagnosis for this admission?: Yes Diagnosis Summary: Tapering IV steroids, nebulizers and pulmonary toilet (5) Oxygen dependent Is this a current diagnosis for this admission?: Yes Diagnosis Summary: Patient is on 4 L/min nasal cannula at home. She is not a CO2 retainer. (6) Chronic diastolic (congestive) heart failure Is this a current diagnosis for this admission?: Yes Diagnosis Summary: Patient is presently euvolemic. - Transfer Medications Home Medications: Acetylcysteine [Mucomist 20% Soln 800 mg/4 mL] 800 mg IH RTBID 11/02/16 Albuterol Sulfate [Proair HFA] 2 puff IH Q4 PRN 11/02/16 Amitriptyline HCl [Elavil 10 mg Tablet] 10 mg PO QHS 11/02/16 Aspirin [Aspirin 325 mg Tablet] 325 mg PO BID 11/02/16 Budesonide/Formoterol Fumarate [Symbicort HFA 160-4.5 mcg Inhaler 6 gm] 2 puff IH Q12 11/02/16 Buspirone HCl [Buspar 10 mg Tablet] 10 mg PO BID 11/02/16 Diltiazem HCl [Diltiazem 12Hr ER] 120 mg PO Q12 11/02/16 Ezetimibe [Zetia 10 mg Tablet] 10 mg PO DAILY 11/02/16 Fluticasone Propionate [Flonase Nasal [place] 50 Mcg/[place] 16 gm] 2 sprays NAREB Q12 11/02/16 Furosemide [Lasix 20 mg Tablet] 20 mg PO QAM 11/02/16 Ipratropium/Albuterol Sulfate [Duoneb 3 ml Ampul] 3 ml NEB RTQID 11/02/16 Meloxicam [Mobic 15 mg Tablet] 15 mg PO DAILY 11/02/16 Mirabegron [Myrbetriq] 50 mg PO DAILY 11/02/16 Montelukast Sodium [Singulair 10 mg Tablet] 10 mg PO QHS 11/02/16 Roflumilast [Daliresp 500 mcg Tablet] 500 mcg PO DAILY 11/02/16 Theophylline Anhydrous 300 mg PO Q12 11/02/16 Tiotropium [place] [Spiriva Handihaler 18 mcg/dose (30 Dose)] 1 cap IH DAILY Transfer Medications: Current Medications Acetaminophen (Tylenol 325 Mg Tablet) 650 mg PO Q4HP PRN PRN Reason: pain or temp greater than 101F Stop: 12/02/16 06:27 Acetylcysteine (Mucomist 20% Soln 800 Mg/4 Ml) 800 mg IH RTBID [facility] Stop: 12/04/16 19:59 Last Admin: 11/05/16 08:28 Dose: 800 mg Albuterol (Proair Hfa Inhalation Aerosol 8.5 Gm Mdi) 2 puff IH Q4HP PRN PRN Reason: FOR WHEEZING Stop: 12/02/16 09:29 Albuterol/Ipratropium (Duoneb 3 Ml Ampul) 3 ml [facility] [id number] [facility] Stop: 12/02/16 13:59 Last Admin: 11/05/16 08:28 Dose: 3 ml Amitriptyline HCl (Elavil 10 Mg Tablet) 10 mg PO QHS [facility] Stop: 12/02/16 21:59 Last Admin: 11/04/16 22:04 Dose: 10 mg Aspirin (Aspirin 325 Mg Tablet) 325 mg PO BID [facility] Stop: 12/02/16 09:59 Last Admin: 11/05/16 11:05 Dose: 325 mg Benzonatate (Tessalon Perles 100 Mg Capsule) 100 mg PO Q8HP PRN Stop: 12/02/16 11:33 Budesonide/Formoterol Fumarate (Symbicort Hfa 160-4.5 Mcg Inhaler 6 Gm) 2 puff IH Q12 [facility] Stop: 12/02/16 09:59 Last Admin: 11/05/16 11:05 Dose: 2 puff Buspirone HCl (Buspar 10 Mg Tablet) 10 mg PO BID [facility] Stop: 12/02/16 09:59 Last Admin: 11/05/16 11:05 Dose: 10 mg Dextrose (Dextrose Inj 50% Syringe (25 Gm/50 Ml)) 12.5 gm IV PRN PRN; Protocol PRN Reason: FOR BG 50-69 IN ALERT PATIENT Stop: 12/02/16 06:28 Dextrose (Dextrose Inj 50% Syringe (25 Gm/50 Ml)) 25 gm IV PRN PRN PRN Reason: Protocol Stop: 12/02/16 06:28 Diltiazem HCl (Cardizem Cd 120 Mg Capsule) 120 mg PO Q12 [facility] Stop: 12/02/16 09:59 Last Admin: 11/05/16 11:03 Dose: 120 mg Ezetimibe (Zetia 10 Mg Tablet) 10 mg PO DAILY [facility] Stop: 12/02/16 09:59 Last Admin: 11/05/16 11:04 Dose: 10 mg Enoxaparin Sodium (Lovenox Inj 40 Mg/0.4 Ml Disp.Syrin) 40 mg SUBCUT DAILY [facility] Stop: 12/02/16 09:59 Last Admin: 11/05/16 10:53 Dose: Not Given Fluticasone Propionate (Flonase Nasal [place] 50 Mcg/[place] 16 Gm) 2 spray NAREB Q12 [facility] Stop: 12/02/16 21:59 Last Admin: 11/05/16 11:05 Dose: 2 spray Furosemide (Lasix 20 Mg Tablet) 20 mg PO QAM [facility] Stop: 12/03/16 07:59 Last Admin: 11/05/16 11:04 Dose: 20 mg Glucagon (Glucagen Inj 1 Mg Vial) 1 mg IM PRN PRN; Protocol PRN Reason: Evaluate for BG < 70 Stop: 12/02/16 06:28 Glucose (Glutose 40% Gel 15 Gm Tube) 15 gm PO PRN PRN; Protocol PRN Reason: FOR BG 50-69 IN ALERT PATIENT Stop: 12/02/16 06:28 Glucose (Glutose 40% Gel 15 Gm Tube) 30 gm PO PRN PRN; Protocol PRN Reason: FOR BG < 50 IN ALERT PATIENT Stop: 12/02/16 06:28 Guaifenesin (Robitussin Syrup 200 Mg/10 Ml Ud Cup) 200 mg PO Q4HP PRN PRN Reason: COUGH Stop: 12/02/16 06:27 Last Admin: 11/05/16 03:43 Dose: 200 mg Aztreonam 1 gm/ Dextrose 50 mls @ 100 mls/hr IV Q8 [facility] Stop: 11/09/16 13:59 Last Admin: 11/05/16 06:45 Dose: 1 gm Insulin Human Lispro (Humalog Insulin 100 Unit/1 Ml 3 Ml Vial) 0 - 12 unit SUBCUT ACHSP PRN PRN Reason: Protocol Stop: 12/02/16 06:28 Meloxicam (Mobic 15 Mg Tablet) 15 mg PO DAILY [facility] Stop: 12/03/16 09:59 Last Admin: 11/05/16 11:06 Dose: 15 mg Methylprednisolone Sodium Succinate (Solu-Medrol Inj/Pf 40 Mg/1 Ml Sdv) 40 mg IV Q12A [facility] Stop: 12/05/16 17:59 Montelukast Sodium (Singulair 10 Mg Tablet) 10 mg PO QHS [facility] Stop: 12/02/16 21:59 Last Admin: 11/04/16 22:03 Dose: 10 mg Oxybutynin Chloride (Ditropan 5 Mg Tablet) 5 mg PO BID [facility] Stop: 12/02/16 17:59 Last Admin: 11/05/16 11:07 Dose: 5 mg Oxycodone/Acetaminophen (Percocet 5-325 Mg Tablet) 1 tab PO Q4HP PRN PRN Reason: PAIN Stop: 11/09/16 11:33 Last Admin: 11/03/16 17:32 Dose: 1 tab Patient Own Medication (Mirabegron [Myrbetriq]) 50 mg PO .DAILY [facility] Stop: 12/02/16 09:59 Roflumilast (Daliresp 500 Mcg Tablet) 500 mcg PO DAILY [facility] Stop: 12/02/16 09:59 Last Admin: 11/05/16 11:07 Dose: 500 mcg Sodium Chloride (Saline Flush 2.5 Ml Monoject Prefil Syrin) 2.5 ml IV Q8 [facility] Stop: 12/02/16 13:59 Last Admin: 11/05/16 06:45 Dose: 2.5 ml Theophylline (Hans-Dur 300 Mg Tab.Sr) 300 mg PO Q12 [facility] Stop: 12/02/16 09:59 Last Admin: 11/05/16 11:05 Dose: 300 mg Tobramycin Sulfate (Tobramycin Neb 40 Mg/Ml 30 Ml Vial) 300 mg NEB RTQ12 [facility] Stop: 11/11/16 19:59 Last Admin: 11/05/16 08:28 Dose: 300 mg - Allergies Allergies/Adverse Reactions: asparaginase [Asparaginase] Allergy (Severe, Verified 08/25/16 11:56) throat swells cefaclor [From Ceclor] Allergy (Severe, Verified 08/25/16 11:56) hives,swell levofloxacin [From Levaquin] Allergy (Severe, Verified 08/25/16 11:56) bakers cyst behind knee nickel [Nickel] Allergy (Severe, Verified 08/25/16 11:56) itch,swell ampicillin Allergy (Verified 08/25/16 11:56) azithromycin Allergy (Verified 08/25/16 11:56) cephalexin monohydrate [From Keflex] Allergy (Verified 08/25/16 11:56) codeine [Codeine] Allergy (Verified 08/25/16 11:56) fluticasone propionate [From Advair Diskus] Allergy (Verified 11/02/16 06:34) morphine [Morphine] Allergy (Verified 08/25/16 11:56) moxifloxacin [From Avelox] Allergy (Verified 08/25/16 11:56) Penicillins Allergy (Verified 08/25/16 11:56) salmeterol xinafoate [From Advair Diskus] Allergy (Verified 08/25/16 11:56) Sulfa (Sulfonamide Antibiotics) Allergy (Verified 08/25/16 11:56) sulfamethoxazole [From Bactrim] Allergy (Verified 08/25/16 11:56) trimethoprim [From Bactrim] Allergy (Verified 08/25/16 11:56) - Diet/Activity Discharge Diet: Cardiac Hospital Course Hospital Course: Patient was admitted to telemetry. She was pancultured prior to antibiotics being started. Dr. Soler, global president, saw the patient in consult. He is her normal global president. Patient had a very harsh nonproductive cough initially. After Mucomyst nebulizers were started she did start coughing productively. Sputum culture grew Pseudomonas. Antibiotics were de-escalated. Plan was for bronchoscopy to be done by Dr. Soler. Cardiology clearance was obtained with Dr. Aguilera prior to this occurring. Cardiology felt the patient was low risk for any cardiac events for bronchoscopy. Unfortunately anesthesia would not agreed to conscious sedation because of of high risk of respiratory failure. Patient therefore needs transfer to a tertiary care facility. Patient and her preferred [facility]. Hospitalist service was contacted. Dr. Cowan, accepted the patient in transfer. Physical Exam Vital Signs: Temp Pulse Resp BP Pulse Ox 98.6 F 86 20 142/84 H 91 L 11/04/16 23:51 11/05/16 08:30 11/05/16 08:30 11/04/16 23:51 11/05/16 12:00 Pulse Oximeter Continuous Start: 11/03/16 15: 26 Freq: RTQ4 Status: Active Document 11/05/16 12:00 LDA (Rec: 11/05/16 12:29 LDA [email or web address]) Pulse Oximetry Assessment Oxygen Saturation (92-100) 91 Oxygen Flow Rate (L/min) 5 Oxygen Delivery Method Nasal Cannula Equipment Usage Equipment in Use Continuous SpO2 Machine # 14 Intake & Output 11/04/16 11/05/16 11/06/16 06:59 06:59 06:59 Intake Total 3420 3620 Balance 3420 3620 Weight 103 kg General appearance: PRESENT: no acute distress, well-developed, well-nourished Head exam: PRESENT: atraumatic, normocephalic Eye exam: PRESENT: conjunctiva pink, EOMI, PERRLA. ABSENT: scleral icterus Ear exam: PRESENT: normal external ear exam Mouth exam: PRESENT: moist, tongue midline Neck exam: ABSENT: carotid bruit, JVD, lymphadenopathy, thyromegaly Respiratory exam: PRESENT: decreased breath sounds - Is started oh patient was taken along, rhonchi, symmetrical - Dr. nurse communication I think this Cardiovascular exam: PRESENT: +S1, +S2, tachycardia Pulses: PRESENT: normal carotid pulses, normal radial pulses Vascular exam: PRESENT: normal capillary refill - . GI/Abdominal exam: PRESENT: normal bowel sounds, soft. ABSENT: distended, guarding, mass, organolmegaly, rebound, tenderness Rectal exam: PRESENT: deferred Extremities exam: PRESENT: full ROM. ABSENT: calf tenderness - Do something she , clubbing, pedal edema Musculoskeletal exam: PRESENT: ambulatory Neurological exam: PRESENT: alert, awake, oriented to person, oriented to place , oriented to time, oriented to situation, CN II-XII grossly intact. ABSENT: motor sensory deficit Psychiatric exam: PRESENT: anxious Skin exam: PRESENT: dry, intact, warm. ABSENT: cyanosis, rash Results Laboratory Results: 11/04/16 06:37 11/05/16 05:51 11/05/16 05:51 Creatinine 0.77 Est GFR ( Amer) > 60 Est GFR (Non-Af Amer) > 60 11/02/16 11:32 Sputum Gram Stain - Final 11/02/16 11:32 Sputum Sputum Culture - Final Pseudomonas Aeruginosa Normal Patsy 11/03/16 21:30 NT-Pro-B Natriuret Pep 234 Impressions: Chest CT 11/02/16 00:00 IMPRESSION: 1. Interval worsening includes an enlarged 5.5 cm left suprahilar mass, large left upper lobar consolidate, and small right suprahilar consolidate. Infectious, inflammatory, neoplastic processes are in the differential diagnosis. 2. No evidence of pulmonary embolus. Chest X-Ray 11/02/16 00:36 IMPRESSION: Increased 5.3 cm left perihilar opacity. Differential diagnosis includes malignancy. Current evaluation with pre and post IV contrast CT of the chest recommended. Chest/Abdomen CTA 11/02/16 02:49 IMPRESSION: 1. Interval worsening includes an enlarged 5.5 cm left suprahilar mass, large left upper lobar consolidate, and small right suprahilar consolidate. Infectious, inflammatory, neoplastic processes are in the differential diagnosis. 2. No evidence of pulmonary embolus. Plan Discharge Plan: Transfer to [facility] Time Spent: Less than 30 Minutes
--- NOTE | 2016-11-05 13:55 | PDOC PROGRESS REPORT ---
Subjective Progress Note for:: 11/04/16 Subjective:: Patient is still short of breath and significantly tachycardic. 2D echo results reviewed. It showed normal LVEF. Patient continues to have coughing spells and her heart rate shoots up with coughing spells and also when she exerts. Currently denying any chest pain Physical Exam Vital Signs: Temp Pulse Resp BP Pulse Ox 98.8 F 120 H 16 129/82 H 92 11/04/16 15:56 11/04/16 15:56 11/04/16 15:56 11/04/16 15:56 11/04/16 17:13 Pulse Oximeter Continuous Start: 11/03/16 15: 26 Freq: RTQ4 Status: Active Document 11/04/16 17:13 [facility] (Rec: 11/04/16 17:18 [facility] [place] [email or web address]) Pulse Oximetry Assessment Oxygen Saturation (92-100) 92 Oxygen Flow Rate (L/min) 5 Oxygen Delivery Method Nasal Cannula Fraction of Inspired Oxygen (FIO2) 40 Equipment Usage Equipment in Use Continuous SpO2 Machine # 14 Intake & Output 11/03/16 11/04/16 11/05/16 06:59 06:59 06:59 Intake Total 1720 3420 2280 Output Total 500 Balance 1220 3420 2280 Weight 103 kg Exam: GENERAL: well-nourished and in no acute distress. Alert and oriented x3 HEAD: Atraumatic, normocephalic. EYES: Pupils equal round and reactive to light, extraocular movements intact, sclera anicteric, conjunctiva are normal. ENT: TMs normal, nares patent, oropharynx clear without exudates. Moist mucous membranes. No oral ulcerations or bleeding gums noted NECK: supple without lymphadenopathy. Trachea is central. No cervical or axillary lymphadenopathy noted. Carotids are 2+, JVD WNL LUNGS: Respiration seems nonlabored, no significant accessory muscle action noted. Bronchial breath sounds noted left upper lobe along with mild dullness especially in the back. Bilateral mild wheezing noted. CHEST: Palpation of the chest wall shows no significant chest wall tenderness. No other significant abnormalities noted. HEART: [place] [employer]OPING, No PSH, 1/6 NINO aortic area, 1/6 [place] systolic murmur mitral area, no rubs, no gallops. ABDOMEN: Soft, no significant tenderness appreciated, normoactive bowel sounds. No guarding, no rebound. No rigidity noted . No masses appreciated. EXTREMITIES: Pedal pulses are 1-2+, no calf tenderness noted. No clubbing or cyanosis.trace to 1+ pedal edema noted NEUROLOGICAL: Focused neurological exam showed no significant neurologic deficit. Normal speech, no focal weakness appreciated. PSYCH: Normal mood, normal affect. Judgment and insight within normal limits. SKIN: No significant ecchymosis, rash, ulcerations or signs of pruritus noted. MUSCULOSKELETAL EXAM: No significant joint swelling noted. Results Laboratory Results: 11/04/16 06:37 11/04/16 06:37 11/03/16 11/04/16 11/04/16 21:30 06:37 06:37 WBC 19.3 H RBC 4.81 Hgb 14.1 Hct 42.0 MCV 87 MCH 29.3 MCHC 33.6 RDW 14.1 H Plt Count 291 Seg Neutrophils % Not Reportable Lymphocytes % Not Reportable Monocytes % Not Reportable Eosinophils % Not Reportable Basophils % Not Reportable Absolute Neutrophils Not Reportable Absolute Lymphocytes Not Reportable Absolute Monocytes Not Reportable Absolute Eosinophils Not Reportable Absolute Basophils Not Reportable Carbonic Acid HCO3/H2CO3 Ratio ABG pH ABG pCO2 ABG pO2 ABG HCO3 ABG O2 Saturation ABG Base Excess FiO2 Sodium 142.3 Potassium 4.3 Chloride 105 Carbon Dioxide 23 Anion Gap 14 BUN 24 H Creatinine 0.73 Est GFR ( Amer) > 60 Est GFR (Non-Af Amer) > 60 Glucose 136 H Calcium 10.4 H Magnesium 2.2 TSH 0.23 L Free T4 Free T3 pg/mL 11/04/16 11/04/16 06:37 09:50 WBC RBC Hgb Hct MCV MCH MCHC RDW Plt Count Seg Neutrophils % Lymphocytes % Monocytes % Eosinophils % Basophils % Absolute Neutrophils Absolute Lymphocytes Absolute Monocytes Absolute Eosinophils Absolute Basophils Carbonic Acid 1.07 HCO3/H2CO3 Ratio 22:1 ABG pH 7.44 ABG pCO2 35.4 ABG pO2 65.9 L ABG HCO3 23.6 ABG O2 Saturation 93.9 L ABG Base Excess 0 FiO2 5L Sodium Potassium Chloride Carbon Dioxide Anion Gap BUN Creatinine Est GFR ( Amer) Est GFR (Non-Af Amer) Glucose Calcium Magnesium TSH Free T4 1.34 Free T3 pg/mL 2.48 L 11/02/16 11:32 Sputum Gram Stain - Final 11/02/16 11:32 Sputum Sputum Culture - Final Pseudomonas Aeruginosa Normal Patsy 11/03/16 21:30 NT-Pro-B Natriuret Pep 234 EKG Comments: Telemetry strips reviewed it shows sinus tachycardia, no acute ST-T wave changes noted Impressions: Chest CT 11/02/16 00:00 IMPRESSION: 1. Interval worsening includes an enlarged 5.5 cm left suprahilar mass, large left upper lobar consolidate, and small right suprahilar consolidate. Infectious, inflammatory, neoplastic processes are in the differential diagnosis. 2. No evidence of pulmonary embolus. Chest X-Ray 11/02/16 00:36 IMPRESSION: Increased 5.3 cm left perihilar opacity. Differential diagnosis includes malignancy. Current evaluation with pre and post IV contrast CT of the chest recommended. Chest/Abdomen CTA 11/02/16 02:49 IMPRESSION: 1. Interval worsening includes an enlarged 5.5 cm left suprahilar mass, large left upper lobar consolidate, and small right suprahilar consolidate. Infectious, inflammatory, neoplastic processes are in the differential diagnosis. 2. No evidence of pulmonary embolus. Status: Image reviewed by wi - 2D echo results reviewed. It shows normal LVEF. No significant valvular abnormalities noted. Is doing better Patient she is better she was little bit of entresto yesterday in the unit Assessment & Plan - Diagnosis (1) Chest pain Qualifiers: Chest pain type: unspecified Qualified Code(s): R07.9 - Chest pain, unspecified Is this a current diagnosis for this admission?: Yes (2) Left upper lobe pneumonia Qualifiers: Pneumonia type: due to unspecified organism Qualified Code(s): J18.1 - Lobar pneumonia, unspecified organism Is this a current diagnosis for this admission?: Yes (3) Mass of left lung Is this a current diagnosis for this admission?: Yes (4) Obstructive chronic bronchitis with exacerbation Is this a current diagnosis for this admission?: Yes (5) Hypoxemia Is this a current diagnosis for this admission?: Yes (6) Tachycardia Is this a current diagnosis for this admission?: Yes - Notes Notes: Preop cardiovascular evaluation: Patient cleared for proposed procedure. 2D echo shows normal LVEF, no significant valvular abnormalities noted. This is a relatively low risk procedure. Patient does have tachycardia. BNP level has come back normal. I feel patient would be a satisfactory candidate for bronchoscopy as I am told that it is a therapeutic as well as diagnostic bronchoscopy. Patient is felt to have mucous plugging and relieving that might actually help patient. Tachycardia may may get better with resolution of pulmonary status. Chest pain: Improved, pleuritic in nature therefore felt to be related to pneumonia. So far EKGs has been negative. Cardiac enzymes has been negative. Mass in the left lung: To be further evaluated with bronchoscopy. Hypoxemia: Continue oxygen supplementation. Patient being followed by top cleaner. Tachycardia: Continue Cardizem. May consider starting a small dose of beta- radha. This was discussed with top cleaner.. - Time Time with patient: Greater than 35 minutes - CODE STATUS was discussed, patient remains full code. Surrogate decision-maker unchanged. Multiple medical problems were addressed. More than 50% of the time spent coordinating care, discussing management plans with involved caregivers. Management plans discussed with involved personnels. Medical decision making was of moderate to high complexity, patient's has multiple comorbidities. Medications reviewed and adjusted accordingly: Yes
--- NOTE | 2016-11-05 13:59 | PDOC PROGRESS REPORT ---
Subjective Progress Note for:: 11/05/16 Subjective:: Patient is still short of breath and significantly tachycardic. 2D echo results reviewed. It showed normal LVEF. Patient just slightly better but still has significant tachycardia and dyspnea on intermittent basis. Patient is denying any chest pain. Physical Exam Vital Signs: Temp Pulse Resp BP Pulse Ox 98.6 F 86 20 142/84 H 91 L 11/04/16 23:51 11/05/16 08:30 11/05/16 08:30 11/04/16 23:51 11/05/16 12:00 Pulse Oximeter Continuous Start: 11/03/16 15: 26 Freq: RTQ4 Status: Active Document 11/05/16 12:00 LDA (Rec: 11/05/16 12:29 [email or web address] [email or web address]) Pulse Oximetry Assessment Oxygen Saturation (92-100) 91 Oxygen Flow Rate (L/min) 5 Oxygen Delivery Method Nasal Cannula Equipment Usage Equipment in Use Continuous SpO2 Machine # 14 Intake & Output 11/04/16 11/05/16 11/06/16 06:59 06:59 06:59 Intake Total 3420 3620 Balance 3420 3620 Weight 103 kg Exam: GENERAL: well-nourished and in no acute distress. Alert and oriented x3 HEAD: Atraumatic, normocephalic. EYES: Pupils equal round and reactive to light, extraocular movements intact, sclera anicteric, conjunctiva are normal. ENT: TMs normal, nares patent, oropharynx clear without exudates. Moist mucous membranes. No oral ulcerations or bleeding gums noted NECK: supple without lymphadenopathy. Trachea is central. No cervical or axillary lymphadenopathy noted. Carotids are 2+, JVD WNL LUNGS: Respiration seems nonlabored, no significant accessory muscle action noted. Bilateral mild wheezing noted. Bronchial breathing noted left upper lobe and also some dullness noted left intrascapular region. CHEST: Palpation of the chest wall shows no significant chest wall tenderness. No other significant abnormalities noted. HEART: [place] HEAD OF ACQUISITIONS, No PSH, 1/6 NINO aortic area, 1/6 [place] systolic murmur mitral area, no rubs, no gallops. ABDOMEN: Soft, no significant tenderness appreciated, normoactive bowel sounds. No guarding, no rebound. No rigidity noted . No masses appreciated. EXTREMITIES: Pedal pulses are 1-2+, no calf tenderness noted. No clubbing or cyanosis.trace to 1+ pedal edema noted NEUROLOGICAL: Focused neurological exam showed no significant neurologic deficit. Normal speech, no focal weakness appreciated. PSYCH: Normal mood, normal affect. Judgment and insight within normal limits. SKIN: No significant ecchymosis, rash, ulcerations or signs of pruritus noted. MUSCULOSKELETAL EXAM: No significant joint swelling noted. Results Laboratory Results: 11/04/16 06:37 11/05/16 05:51 11/05/16 05:51 Creatinine 0.77 Est GFR ( Amer) > 60 Est GFR (Non-Af Amer) > 60 11/02/16 11:32 Sputum Gram Stain - Final 11/02/16 11:32 Sputum Sputum Culture - Final Pseudomonas Aeruginosa Normal Patsy 11/03/16 21:30 NT-Pro-B Natriuret Pep 234 EKG Comments: Telemetry shows intermittent tachycardia Impressions: Chest CT 11/02/16 00:00 IMPRESSION: 1. Interval worsening includes an enlarged 5.5 cm left suprahilar mass, large left upper lobar consolidate, and small right suprahilar consolidate. Infectious, inflammatory, neoplastic processes are in the differential diagnosis. 2. No evidence of pulmonary embolus. Chest X-Ray 11/02/16 00:36 IMPRESSION: Increased 5.3 cm left perihilar opacity. Differential diagnosis includes malignancy. Current evaluation with pre and post IV contrast CT of the chest recommended. Chest/Abdomen CTA 11/02/16 02:49 IMPRESSION: 1. Interval worsening includes an enlarged 5.5 cm left suprahilar mass, large left upper lobar consolidate, and small right suprahilar consolidate. Infectious, inflammatory, neoplastic processes are in the differential diagnosis. 2. No evidence of pulmonary embolus. Assessment & Plan - Diagnosis (1) Chest pain Qualifiers: Chest pain type: unspecified Qualified Code(s): R07.9 - Chest pain, unspecified Is this a current diagnosis for this admission?: Yes (2) Left upper lobe pneumonia Qualifiers: Pneumonia type: due to unspecified organism Qualified Code(s): J18.1 - Lobar pneumonia, unspecified organism Is this a current diagnosis for this admission?: Yes (3) Mass of left lung Is this a current diagnosis for this admission?: Yes (4) Obstructive chronic bronchitis with exacerbation Is this a current diagnosis for this admission?: Yes (5) Hypoxemia Is this a current diagnosis for this admission?: Yes (6) Tachycardia Is this a current diagnosis for this admission?: Yes - Notes Notes: Preop cardiovascular evaluation: I am told that patient being transferred to tertiary care. Chest pain: Improved, pleuritic in nature therefore felt to be related to pneumonia. So far EKGs has been negative. Cardiac enzymes has been negative. Mass in the left lung: To be further evaluated with bronchoscopy. Hypoxemia: Continue oxygen supplementation. Patient being followed by interactive art director. Tachycardia: BNP level WNL, although TSH is noted to be low, T3 and T4 levels WNL consider adding beta-radha to current regimen.. - Time Time with patient: Greater than 35 minutes - CODE STATUS was discussed, patient remains full code. Surrogate decision-maker unchanged. Multiple medical problems were addressed. More than 50% of the time spent coordinating care, discussing management plans with involved caregivers. Management plans discussed with involved personnels. Medical decision making was of moderate to high complexity, patient's has multiple comorbidities. Medications reviewed and adjusted accordingly: Yes
--- NOTE | 2016-11-05 14:34 | PDOC PROGRESS REPORT ---
Subjective Progress Note for:: 11/05/16 Subjective:: Anxious and apprehensive Physical Exam Vital Signs: Temp Pulse Resp BP Pulse Ox 98.6 F 86 20 142/84 H 91 L 11/04/16 23:51 11/05/16 08:30 11/05/16 08:30 11/04/16 23:51 11/05/16 12:00 Pulse Oximeter Continuous Start: 11/03/16 15: 26 Freq: RTQ4 Status: Active Document 11/05/16 12:00 LDA (Rec: 11/05/16 12:29 LDA [email or web address]) Pulse Oximetry Assessment Oxygen Saturation (92-100) 91 Oxygen Flow Rate (L/min) 5 Oxygen Delivery Method Nasal Cannula Equipment Usage Equipment in Use Continuous SpO2 Machine # 14 Intake & Output 11/04/16 11/05/16 11/06/16 06:59 06:59 06:59 Intake Total 3420 3620 Balance 3420 3620 Weight 103 kg General appearance: PRESENT: no acute distress, cooperative, disheveled, obese, well-developed Head exam: PRESENT: atraumatic, normocephalic Eye exam: PRESENT: conjunctiva pale, EOMI Mouth exam: PRESENT: moist, neck supple Neck exam: ABSENT: carotid bruit, JVD, lymphadenopathy, thyromegaly Respiratory exam: PRESENT: crackles, decreased breath sounds, prolonged expiratory phas, rhonchi, symmetrical, unlabored, wheezes Cardiovascular exam: PRESENT: RRR, +S1, +S2 Pulses: PRESENT: normal radial pulses GI/Abdominal exam: PRESENT: normal bowel sounds, soft. ABSENT: distended, guarding, mass, organolmegaly, rebound, tenderness Rectal exam: PRESENT: deferred Neurological exam: PRESENT: alert, awake Psychiatric exam: PRESENT: anxious Skin exam: PRESENT: dry, warm Results Laboratory Results: 11/04/16 06:37 11/05/16 05:51 11/05/16 05:51 Creatinine 0.77 Est GFR ( Amer) > 60 Est GFR (Non-Af Amer) > 60 11/03/16 21:30 NT-Pro-B Natriuret Pep 234 Impressions: Chest CT 11/02/16 00:00 IMPRESSION: 1. Interval worsening includes an enlarged 5.5 cm left suprahilar mass, large left upper lobar consolidate, and small right suprahilar consolidate. Infectious, inflammatory, neoplastic processes are in the differential diagnosis. 2. No evidence of pulmonary embolus. Chest X-Ray 11/02/16 00:36 IMPRESSION: Increased 5.3 cm left perihilar opacity. Differential diagnosis includes malignancy. Current evaluation with pre and post IV contrast CT of the chest recommended. Chest/Abdomen CTA 11/02/16 02:49 IMPRESSION: 1. Interval worsening includes an enlarged 5.5 cm left suprahilar mass, large left upper lobar consolidate, and small right suprahilar consolidate. Infectious, inflammatory, neoplastic processes are in the differential diagnosis. 2. No evidence of pulmonary embolus. Assessment & Plan - Diagnosis (1) Left upper lobe pneumonia Qualifiers: Pneumonia type: due to unspecified organism Qualified Code(s): J18.1 - Lobar pneumonia, unspecified organism Is this a current diagnosis for this admission?: Yes (2) Mass of left lung Is this a current diagnosis for this admission?: Yes (3) Obstructive chronic bronchitis with exacerbation Is this a current diagnosis for this admission?: Yes (4) Oxygen dependent Is this a current diagnosis for this admission?: Yes - Plan Summary Plan Summary: Remains very ill notes for diagnostic or therapeutic bronchoscopy disease DrGerald available patient cardiology and primary care patient should be transferred to infectious disease workup. All parties were in agreement.
[2016-11-05] MEDS ORDERED: METHYLPREDNISOLONE INJ 40 MG/1 ML SDV IV SCH (18:00)
[2016-11-05] MEDS ORDERED: METHYLPREDNISOLONE INJ 125 MG/2 ML SDV IV SCH (22:00)
== END 2016-11-05 16:12 | disposition short-term general hospital (02) | DRG 190 ==
LOC: ER 00:26 → EH 06:00 → UNDOADMIN 06:00 → EH 06:28 → 5 09:01
PROVIDERS: ADMIT Family Medicine; ATTEND Family Medicine
DX: J44.0 Chronic obstructive pulmonary disease with (acute) lower respiratory infection (principal); J18.1 Lobar pneumonia, unspecified organism; I50.32 Chronic diastolic (congestive) heart failure; J44.1 Chronic obstructive pulmonary disease with (acute) exacerbation; R91.8 Other nonspecific abnormal finding of lung field; R09.02 Hypoxemia; Z99.81 Dependence on supplemental oxygen; F32.9 Major depressive disorder, single episode, unspecified; F41.1 Generalized anxiety disorder; M19.90 Unspecified osteoarthritis, unspecified site; Z79.899 Other long term (current) drug therapy; Z79.82 Long term (current) use of aspirin; Z88.1 Allergy status to other antibiotic agents; Z88.8 Allergy status to other drugs, medicaments and biological substances; Z88.2 Allergy status to sulfonamides; Z87.442 Personal history of urinary calculi; Z87.891 Personal history of nicotine dependence
CPT/HCPCS: 36415; 36600; 71010; 71250; 71275; 80048; 80053; 80198; 80202; 81001; 82550; 82553; 82565; 82803; 83735; 83880; 84439; 84443; 84481; 84484; 85025; 85610; 85730; 87040; 87070; 87077; 87186; 87205; 93005; 93010; 93306; 94640; 94762; 94799; 96374; 96375; 99285; J1200; J1650; J2930; J3370; J3490; J7060; J7614; J7620; J7685; S0028

== ENCOUNTER → 2016-11-16 | Outpatient (CLI) | payer MEDICARE, MEDICAID ==
[2016-11-16 09:19] LABS: ABSOLUTE BASOPHILS # (AUTO) 0.1 10^3/uL (0.0-0.2); ABSOLUTE EOSINOPHILS # (AUTO) 0.4 10^3/uL (0.0-0.6); ABSOLUTE LYMPHOCYTES (AUTO) 1.3 10^3/uL (0.5-4.7); ABSOLUTE MONOCYTES (AUTO) 0.6 10^3/uL (0.1-1.4); ABSOLUTE NEUT (AUTO) 4.4 10^3/uL (1.7-8.2); BASOPHILS % (AUTO) 1.8 % (0-2); EOSINOPHILS % (AUTO) 5.3 % (0-6); HEMATOCRIT 39.7 % (36.0-47.0); HEMOGLOBIN 13.4 g/dL (12.0-15.5); HGB HCT DIFFERENCE 0.5; MEAN CORPUSCULAR HEMOGLOBIN 29.8 pg (27.0-33.4); MEAN CORPUSCULAR HGB CONC 33.9 g/dL (32.0-36.0); MEAN CORPUSCULAR VOLUME 88 fl (80-97); MONOCYTES % (AUTO) 9.4 % (3-13); RED BLOOD COUNT 4.51 10^6/uL (3.72-5.28); RED CELL DISTRIBUTION WIDTH 14.2 % (11.5-14.0); SEGMENTED NEUTROPHILS % (AUTO) 64.5 % (42-78); WHITE BLOOD COUNT 6.9 10^3/uL (4.0-10.5)
[2016-11-16 09:41] LABS: ALANINE AMINOTRANSFERASE 57 U/L (9-52); ANION GAP 9 (5-19); ASPARTATE AMINO TRANSFERASE 33 U/L (14-36); BLOOD UREA NITROGEN 13 mg/dL (7-20); CALCIUM 9.4 mg/dL (8.4-10.2); CARBON DIOXIDE 32 mmol/L (22-30); CHLORIDE 102 mmol/L (98-107); CHOLESTEROL 163.91 mg/dL (0-200); CREATININE RESULT 0.71 mg/dL (0.52-1.25); Direct HDL 47 mg/dL (>40); GLUCOSE 93 mg/dL (75-110); POTASSIUM 3.9 mmol/L (3.6-5.0); SODIUM 142.5 mmol/L (137-145); TRIGLYCERIDES 99 mg/dL (<150)
[2016-11-16 09:52] LABS: DIRECT LDL 107 mg/dL (<100)
== END ==
LOC: OD 08:02
PROVIDERS: ATTEND Family Medicine Geriatric Medicine
DX: E87.6 Hypokalemia (principal); E78.5 Hyperlipidemia, unspecified; I10 Essential (primary) hypertension; Z79.899 Other long term (current) drug therapy
CPT/HCPCS: 36415; 80048; 80061; 84450; 84460; 85025

== ENCOUNTER → 2016-11-19 | Outpatient (CLI) | payer MEDICARE, MEDICAID ==
--- NOTE | 2016-11-22 12:40 | RADIOLOGY REPORT (SQ) ---
EXAM DESCRIPTION: PET CT SKULL/THIGH COMPLETED DATE/TIME: 11/19/2016 3:41 pm REASON FOR STUDY: LUNG CA (C34.90) C34.90 MALIGNANT NEOPLASM OF UNSP PART OF UNSP BRONCHUS OR L COMPARISON: PET-CT 12/20/2014 CT chest 11/06/2016, 11/19/2014 CT abdomen pelvis 08/06/2016, 07/15/2016 RADIONUCLIDE AND DOSE: 10.4 mCi F18 FDG The route of agent administration: Intravenous FASTING BLOOD SUGAR: 103 mg/dl CONTRAST TYPE AND DOSE: No CT contrast given. TECHNIQUE: Blood glucose level was verified. Above dose of FDG was injected intravenously. 2-D seg mented attenuation correction images were obtained from the base of the skull to the midthighs. Nonc ontrast CT images were obtained for attenuation correction and fusion with emission images. CT image s were performed without oral or intravenous contrast and are not sensitive for parenchymal lesions. A series of overlapping emission PET images were obtained. Images reviewed and manipulated at [facility] work station by the radiologist. Images stored on PACS. LIMITATIONS: None. FINDINGS: HEAD AND NECK: No areas of abnormal metabolic activity in the soft tissues of the head and neck. CHEST: There is a 4.4 cm AP by 3.7 cm transverse left hilar mass, splaying the left upper and lower l obe bronchi on axial image 61. This causes mild left upper lobe and lower lobe bronchus narrowing, a nd has SUV of 4.0 worrisome for malignancy. All no hypermetabolic mediastinal adenopathy. There is bandlike atelectasis in the lingula. Remainder of the lungs exhibit some obstructive lung d isease. No pleural effusions. No pneumothorax. No pulmonary nodules. ABDOMEN AND PELVIS: No areas of abnormal metabolic activity in the abdomen or pelvis. Expected physi ologic activity is present in the genitourinary system and bowel. PROXIMAL LOWER EXTREMITIES: No areas of abnormal metabolic activity in the soft tissues of the lower extremities. BONES: No abnormal metabolic activity in the visualized skeleton. ADDITIONAL CT FINDINGS: Bold very mild coronary artery calcification. Mild diffuse degenerative [place] ges throughout the spine. Minimal fluid right maxillary sinus. Colonic diverticulosis without CT si gns of acute diverticulitis fibroid uterus. OTHER: Baseline blood pool activity 1.8 SUV, patient's baseline liver activity 2.4 SUV IMPRESSION: 4.5 x 3.7 cm hypermetabolic left hilar mass worrisome for malignancy TECHNICAL DOCUMENTATION: JOB ID: [id number] [email or web address] All Rights Reserved
== END ==
LOC: RAD 11:06
PROVIDERS: ATTEND Internal Medicine Medical Oncology
DX: C34.92 Malignant neoplasm of unspecified part of left bronchus or lung (principal); R91.8 Other nonspecific abnormal finding of lung field; R93.8 Abnormal findings on diagnostic imaging of other specified body structures; R97.0 Elevated carcinoembryonic antigen [CEA]
CPT/HCPCS: 78815; A9552

== ENCOUNTER → 2016-12-31 | Outpatient (CLI) | payer MEDICARE, MEDICAID ==
--- NOTE | 2016-12-31 11:26 | RADIOLOGY REPORT (SQ) ---
EXAM DESCRIPTION: CHEST PA/LATERAL COMPLETED DATE/TIME: 12/31/2016 11:12 am REASON FOR STUDY: COPD COMPARISON: PET-CT 11/19/2016 CT angio chest 11/02/2016 CT chest without contrast 11/02/2016, 10/31/2015 EXAM PARAMETERS: NUMBER OF VIEWS: two views TECHNIQUE: Digital Frontal and Lateral radiographic views of the chest acquired. RADIATION DOSE: NA LIMITATIONS: none FINDINGS: LUNGS AND PLEURA: A left hilar soft tissue mass is present with obstructive collapse of th e left upper lobe. This is similar compared to 11/19/2016 and 11/02/2016. There is volume loss in the left hemithorax. Left lower lobe well expanded and clear. No left pleural effusion or pneumothorax. On the right side, the right lung is hyperinflated without focal infiltrates. No right pleural effus ion or pneumothorax. MEDIASTINUM AND HILAR STRUCTURES: Left hilar mass HEART AND VASCULAR STRUCTURES: Heart normal size. No evidence for failure. BONES: No acute findings. HARDWARE: None in the chest. OTHER: No other significant finding. IMPRESSION: No change in left hilar mass and post obstructive change left upper lobe compared to PET -CT 11/19/2016. TECHNICAL DOCUMENTATION: JOB ID: [id number] [employer]- All Rights Reserved
[2016-12-31 11:51] LABS: ABSOLUTE BASOPHILS # (AUTO) 0.1 10^3/uL (0.0-0.2); ABSOLUTE EOSINOPHILS # (AUTO) 0.1 10^3/uL (0.0-0.6); ABSOLUTE LYMPHOCYTES (AUTO) 1.4 10^3/uL (0.5-4.7); ABSOLUTE MONOCYTES (AUTO) 0.9 10^3/uL (0.1-1.4); ABSOLUTE NEUT (AUTO) 7.4 10^3/uL (1.7-8.2); BASOPHILS % (AUTO) 0.5 % (0-2); EOSINOPHILS % (AUTO) 0.7 % (0-6); HEMATOCRIT 41.6 % (36.0-47.0); HEMOGLOBIN 14.2 g/dL (12.0-15.5); LYMPHOCYTES % (AUTO) 14.1 % (13-45); MEAN CORPUSCULAR HEMOGLOBIN 29.6 pg (27.0-33.4); MEAN CORPUSCULAR HGB CONC 34.2 g/dL (32.0-36.0); MEAN CORPUSCULAR VOLUME 87 fl (80-97); MONOCYTES % (AUTO) 8.9 % (3-13); RED CELL DISTRIBUTION WIDTH 14.5 % (11.5-14.0); SEGMENTED NEUTROPHILS % (AUTO) 75.8 % (42-78); WHITE BLOOD COUNT 9.7 10^3/uL (4.0-10.5)
== END ==
LOC: OD 10:37
PROVIDERS: ATTEND Internal Medicine Pulmonary Disease
DX: J44.9 Chronic obstructive pulmonary disease, unspecified (principal)
CPT/HCPCS: 36415; 71020; 85025; 87070; 87077; 87205

== ENCOUNTER → 2017-03-29 | Outpatient (CLI) | payer MEDICARE, MEDICAID ==
--- NOTE | 2017-03-29 10:50 | RADIOLOGY REPORT (SQ) ---
EXAM DESCRIPTION: KUB COMPLETED DATE/TIME: 03/29/2017 10:00 am REASON FOR STUDY: CALCULUS OF URETER N20.1 CALCULUS OF URETER COMPARISON: PET-CT 11/19/2016 CT abdomen pelvis 08/06/2016 NUMBER OF VIEWS: One view. TECHNIQUE: Supine radiographic image of the abdomen acquired. LIMITATIONS: None. FINDINGS: BOWEL GAS PATTERN: Normal bowel gas pattern. No dilated loops. CALCIFICATIONS: There are calcified pelvic phleboliths unchanged from CT exam 08/06/2016. No calcific ations over the expected course of the right or left ureter. Atherosclerotic proximal iliac artery c alcifications bilaterally SOFT TISSUES: No gross mass or suggestion of organomegaly. HARDWARE: None in the abdomen. BONES: Advanced multilevel degenerative disc changes lumbar spine OTHER: No other significant finding. IMPRESSION: NO RADIOGRAPHIC EVIDENCE FOR ACUTE ABDOMINAL DISEASE. TECHNICAL DOCUMENTATION: JOB ID: [id number] [employer]- All Rights Reserved
== END ==
LOC: OD 09:40
PROVIDERS: ATTEND Urology
DX: N20.1 Calculus of ureter (principal)
CPT/HCPCS: 74018

== ENCOUNTER → 2017-04-13 | Outpatient (CLI) | payer MEDICARE, MEDICAID ==
--- NOTE | 2017-04-13 16:41 | RADIOLOGY REPORT (SQ) ---
EXAM DESCRIPTION: CHEST PA/LATERAL COMPLETED DATE/TIME: 04/13/2017 1:27 pm REASON FOR STUDY: CHRONIC OBSTRUCTIVE PULMONARY DISEASE, UNSPECIFIED COMPARISON: December 2016 EXAM PARAMETERS: NUMBER OF VIEWS: two views TECHNIQUE: Digital Frontal and Lateral radiographic views of the chest acquired. RADIATION DOSE: NA LIMITATIONS: none FINDINGS: LUNGS AND PLEURA: The previously described left hilar soft tissue mass is again identified and appears essentially unchanged. The previously described left upper lobe volume loss is again id entified. The right lung remains clear. MEDIASTINUM AND HILAR STRUCTURES: Left hilar soft tissue mass appears unchanged. HEART AND VASCULAR STRUCTURES: Cardiac silhouette is unchanged in configuration. BONES: No acute findings. HARDWARE: None in the chest. OTHER: No other significant finding. IMPRESSION: No significant interval change. Findings as noted above TECHNICAL DOCUMENTATION: JOB ID: [id number] [employer]- All Rights Reserved
== END ==
LOC: OD 12:48
PROVIDERS: ATTEND Internal Medicine Pulmonary Disease
DX: J44.9 Chronic obstructive pulmonary disease, unspecified (principal); C34.92 Malignant neoplasm of unspecified part of left bronchus or lung
CPT/HCPCS: 71046

== ENCOUNTER → 2017-04-13 | Outpatient (CLI) | payer MEDICARE, MEDICAID ==
[2017-04-13 12:56] LABS: ARTERIAL BLOOD BASE EXCESS 2.4 mmol/L; ARTERIAL BLOOD H2CO3 0.91 mmol/L (1.05-1.35); ARTERIAL BLOOD HCO3 24.4 mmol/L (20-26); ARTERIAL BLOOD O2 SATURATION 96.7 % (94-98); ARTERIAL BLOOD PCO2 30.1 mmHg (35-45); ARTERIAL BLOOD PH 7.53 (7.35-7.45); ARTERIAL BLOOD PO2 76.8 mmHg (80-100); ARTERIAL BLOOD TOTAL CO2 25.3 mmol/L (21-25)
[2017-04-13 12:58] LABS: ARTERIAL BLOOD FIO2 4 L
[2017-04-14 07:47] LABS: FOLLICLE STIMULATING HORMONE 93.4 mIU/mL (.); LUTEINIZING HORMONE 30.4 mIU/mL (.); PROLACTIN 22.9 ng/mL (4.8-23.3)
[2017-04-14 14:07] LABS: ABSOLUTE BASOPHILS # (AUTO) 0.1 10^3/uL (0.0-0.2); ABSOLUTE LYMPHOCYTES (AUTO) 0.8 10^3/uL (0.5-4.7); ABSOLUTE MONOCYTES (AUTO) 0.6 10^3/uL (0.1-1.4); ABSOLUTE NEUT (AUTO) 5.7 10^3/uL (1.7-8.2); BASOPHILS % (AUTO) 0.8 % (0-2); EOSINOPHILS % (AUTO) 0.1 % (0-6); HEMATOCRIT 39.2 % (36.0-47.0); HEMOGLOBIN 13.1 g/dL (12.0-15.5); LYMPHOCYTES % (AUTO) 11.3 % (13-45); MEAN CORPUSCULAR HEMOGLOBIN 30.9 pg (27.0-33.4); MEAN CORPUSCULAR HGB CONC 33.5 g/dL (32.0-36.0); MEAN CORPUSCULAR VOLUME 92 fl (80-97); MONOCYTES % (AUTO) 8.4 % (3-13); PLATELET COUNT 403 10^3/uL (150-450); RED BLOOD COUNT 4.25 10^6/uL (3.72-5.28); RED CELL DISTRIBUTION WIDTH 17.8 % (11.5-14.0); SEGMENTED NEUTROPHILS % (AUTO) 79.4 % (42-78); TOTAL CELLS COUNTED % (AUTO) 100 %; WHITE BLOOD COUNT 7.2 10^3/uL (4.0-10.5)
== END ==
LOC: OD 12:16
PROVIDERS: ATTEND Internal Medicine Pulmonary Disease
DX: N64.52 Nipple discharge (principal); J96.10 Chronic respiratory failure, unspecified whether with hypoxia or hypercapnia
CPT/HCPCS: 36415; 82803; 83001; 83002; 84146; 85025; 87070; 87205

== ENCOUNTER → 2017-05-17 | Outpatient (CLI) | payer MEDICARE, MEDICAID ==
[2017-05-17 15:50] LABS: ABSOLUTE LYMPHOCYTES (AUTO) 0.8 10^3/uL (0.5-4.7); ABSOLUTE MONOCYTES (AUTO) 0.8 10^3/uL (0.1-1.4); BASOPHILS % (AUTO) 0.5 % (0-2); HEMATOCRIT 39.3 % (36.0-47.0); HEMOGLOBIN 13.2 g/dL (12.0-15.5); MEAN CORPUSCULAR HEMOGLOBIN 30.5 pg (27.0-33.4); MEAN CORPUSCULAR HGB CONC 33.6 g/dL (32.0-36.0); MEAN CORPUSCULAR VOLUME 91 fl (80-97); MONOCYTES % (AUTO) 10.3 % (3-13); PLATELET COUNT 407 10^3/uL (150-450); RED BLOOD COUNT 4.33 10^6/uL (3.72-5.28); RED CELL DISTRIBUTION WIDTH 15.1 % (11.5-14.0); SEGMENTED NEUTROPHILS % (AUTO) 79.2 % (42-78); TOTAL CELLS COUNTED % (AUTO) 100 %; WHITE BLOOD COUNT 7.6 10^3/uL (4.0-10.5)
== END ==
LOC: OD 15:03
PROVIDERS: ATTEND Radiology Radiation Oncology
DX: C34.12 Malignant neoplasm of upper lobe, left bronchus or lung (principal)
CPT/HCPCS: 36415; 85025

== ENCOUNTER → 2017-05-30 | Outpatient (CLI) | payer MEDICARE, MEDICAID ==
[2017-05-30 14:39] LABS: ABSOLUTE LYMPHOCYTES (AUTO) 0.4 10^3/uL (0.5-4.7); ABSOLUTE MONOCYTES (AUTO) 0.4 10^3/uL (0.1-1.4); ABSOLUTE NEUT (AUTO) 4.5 10^3/uL (1.7-8.2); BASOPHILS % (AUTO) 0.6 % (0-2); EOSINOPHILS % (AUTO) 0.2 % (0-6); HEMATOCRIT 39.3 % (36.0-47.0); HEMOGLOBIN 13.1 g/dL (12.0-15.5); LYMPHOCYTES % (AUTO) 7.5 % (13-45); MEAN CORPUSCULAR HEMOGLOBIN 30.5 pg (27.0-33.4); MEAN CORPUSCULAR HGB CONC 33.4 g/dL (32.0-36.0); MEAN CORPUSCULAR VOLUME 91 fl (80-97); MONOCYTES % (AUTO) 6.9 % (3-13); PLATELET COUNT 289 10^3/uL (150-450); RED BLOOD COUNT 4.31 10^6/uL (3.72-5.28); RED CELL DISTRIBUTION WIDTH 15.5 % (11.5-14.0); SEGMENTED NEUTROPHILS % (AUTO) 84.8 % (42-78); TOTAL CELLS COUNTED % (AUTO) 100 %; WHITE BLOOD COUNT 5.3 10^3/uL (4.0-10.5)
== END ==
LOC: OD 13:33
PROVIDERS: ATTEND Radiology Radiation Oncology
DX: C34.12 Malignant neoplasm of upper lobe, left bronchus or lung (principal); C77.1 Secondary and unspecified malignant neoplasm of intrathoracic lymph nodes
CPT/HCPCS: 36415; 85025

== ENCOUNTER → 2017-06-06 | Outpatient (CLI) | payer MEDICARE, MEDICAID ==
[2017-06-06 13:35] LABS: HEMATOCRIT 41.9 % (36.0-47.0); MEAN CORPUSCULAR HEMOGLOBIN 30.5 pg (27.0-33.4); MEAN CORPUSCULAR HGB CONC 33.4 g/dL (32.0-36.0); MEAN CORPUSCULAR VOLUME 91 fl (80-97); PLATELET COUNT 271 10^3/uL (150-450); RED CELL DISTRIBUTION WIDTH 15.4 % (11.5-14.0); WHITE BLOOD COUNT 4.2 10^3/uL (4.0-10.5)
[2017-06-06 14:07] LABS: ABSOLUTE LYMPHOCYTES# (MANUAL) 0.3 10^3/uL (0.5-4.7); ABSOLUTE MONOCYTES # (MANUAL) 0.3 10^3/uL (0.1-1.4); ABSOLUTE NEUTROPHILS# (MANUAL) 3.6 10^3/uL (1.7-8.2); ANISOCYTOSIS SLIGHT; BAND NEUTROPHILS % (MANUAL) 1 % (3-5); BASOPHILS % (MANUAL) 0 % (0-2); EOSINOPHILS % (MANUAL) 2 % (0-6); HYPOCHROMASIA SLIGHT; LYMPHOCYTES % (MANUAL) 5 % (13-45); MONOCYTES % (MANUAL) 7 % (3-13); PLATELET COMMENT ADEQUATE; POLYCHROMASIA 1+; SEGMENTED NEUTROPHILS % (MAN) 84 % (42-78); TOTAL CELLS COUNTED 100; TOXIC GRANULATION SLIGHT
== END ==
LOC: OD 12:50
PROVIDERS: ATTEND Radiology Radiation Oncology
DX: C34.12 Malignant neoplasm of upper lobe, left bronchus or lung (principal); C77.1 Secondary and unspecified malignant neoplasm of intrathoracic lymph nodes
CPT/HCPCS: 36415; 85025

== ENCOUNTER → 2017-06-13 | Outpatient (CLI) | payer MEDICARE, MEDICAID ==
[2017-06-13 13:41] LABS: HEMATOCRIT 42.7 % (36.0-47.0); HEMOGLOBIN 14.2 g/dL (12.0-15.5); MEAN CORPUSCULAR HEMOGLOBIN 30.2 pg (27.0-33.4); MEAN CORPUSCULAR HGB CONC 33.3 g/dL (32.0-36.0); MEAN CORPUSCULAR VOLUME 91 fl (80-97); PLATELET COUNT 241 10^3/uL (150-450); RED BLOOD COUNT 4.72 10^6/uL (3.72-5.28); RED CELL DISTRIBUTION WIDTH 15.6 % (11.5-14.0); WHITE BLOOD COUNT 4.6 10^3/uL (4.0-10.5)
[2017-06-13 14:20] LABS: ABSOLUTE LYMPHOCYTES# (MANUAL) 0.3 10^3/uL (0.5-4.7); ABSOLUTE MONOCYTES # (MANUAL) 0.5 10^3/uL (0.1-1.4); ABSOLUTE NEUTROPHILS# (MANUAL) 3.7 10^3/uL (1.7-8.2); BASOPHILS % (MANUAL) 1 % (0-2); EOSINOPHILS % (MANUAL) 0 % (0-6); LYMPHOCYTES % (MANUAL) 7 % (13-45); MONOCYTES % (MANUAL) 11 % (3-13); SEGMENTED NEUTROPHILS % (MAN) 81 % (42-78); TOTAL CELLS COUNTED 100
[2017-06-13 14:21] LABS: ANISOCYTOSIS SLIGHT; PLATELET COMMENT ADEQUATE
== END ==
LOC: OD 12:33
PROVIDERS: ATTEND Radiology Radiation Oncology
DX: C34.12 Malignant neoplasm of upper lobe, left bronchus or lung (principal); C77.1 Secondary and unspecified malignant neoplasm of intrathoracic lymph nodes
CPT/HCPCS: 36415; 85025

== ENCOUNTER 2017-06-19 11:16 | Inpatient (IN) | payer MEDICARE, MEDICAID ==
[2017-06-19] MEDS ORDERED: FAMOTIDINE INJ/PF 20 MG/2 ML SDV IV ONE (11:56)
[2017-06-19] MEDS ORDERED: DIPHENHYDRAMINE HCL 50 MG/ML VIAL IV ONE (11:56)
[2017-06-19] MEDS ORDERED: METHYLPREDNISOLONE INJ 125 MG/2 ML SDV IV ONE (11:56)
--- NOTE | 2017-06-19 11:59 | ER Document Report ---
ED General - General Chief Complaint: Shortness Of Breath Stated Complaint: SHORTNESS OF BREATH Time Seen by Provider: 06/19/17 11:33 Mode of Arrival: Ambulatory Information source: Patient, Relative, [facility] Records Notes: 62-year-old female with a history of CHF, atrial fibrillation, diabetes, hypertension and advanced left-sided lung cancer (currently undergoing chemotherapy and radiation therapy.) Presents with complaint of worsening shortness of breath that started 3 days prior to arrival. She states over the last 3 days she has experienced worsening shortness of breath with minimal activity. She states that even walking a few feet causes her to become very short of breath. She does describe productive cough that is not different from her baseline. She does wear 4 L of oxygen at home and is not requiring an increase. She denies any fever, chills, nausea, vomiting, chest pain, back pain , abdominal pain, dysuria. Patient's sizer hand Dr. Soler advised the patient to be seen in the emergency department 3 days ago but she states that she was hopeful that this would improve. Patient's oncologist is Dr. Bernard in [place]. TRAVEL OUTSIDE OF THE [place] IN LAST 30 DAYS: No - HPI Onset: Other - 3 days prior to arrival Onset/Duration: Intermittent, Worse Quality of pain: No pain Associated symptoms: Body/muscle aches, Productive cough, Hurts to breath, Shortness of breath. denies: Fever, Headache Exacerbated by: Walking Relieved by: Remaining still Similar symptoms previously: Yes Recently seen / treated by doctor: Yes - Related Data Allergies/Adverse Reactions: asparaginase [Asparaginase] Allergy (Severe, Verified 06/19/17 11:28) throat swells cefaclor [From Ceclor] Allergy (Severe, Verified 06/19/17 11:28) hives,swell levofloxacin [From Levaquin] Allergy (Severe, Verified 06/19/17 11:28) bakers cyst behind knee nickel [Nickel] Allergy (Severe, Verified 06/19/17 11:28) itch,swell ampicillin Allergy (Verified 06/19/17 11:28) azithromycin Allergy (Verified 06/19/17 11:28) cephalexin monohydrate [From Keflex] Allergy (Verified 06/19/17 11:28) codeine [Codeine] Allergy (Verified 06/19/17 11:28) fluticasone propionate [From Advair Diskus] Allergy (Verified 06/19/17 11:28) morphine [Morphine] Allergy (Verified 06/19/17 11:28) moxifloxacin [From Avelox] Allergy (Verified 06/19/17 11:28) Penicillins Allergy (Verified 06/19/17 11:28) salmeterol xinafoate [From Advair Diskus] Allergy (Verified 06/19/17 11:28) Sulfa (Sulfonamide Antibiotics) Allergy (Verified 06/19/17 11:28) sulfamethoxazole [From Bactrim] Allergy (Verified 06/19/17 11:28) trimethoprim [From Bactrim] Allergy (Verified 06/19/17 11:28) Past Medical History - General Information source: Patient - Social History Smoking Status: Former Smoker Chew tobacco use (# tins/day): No Frequency of alcohol use: None Drug Abuse: None Family History: None Patient has suicidal ideation: No Patient has homicidal ideation: No - Past Medical History Cardiac Medical History: Reports: Hx Congestive Heart Failure Denies: Hx Atrial Fibrillation, Hx Coronary Artery Disease, Hx DVT, Hx Heart Attack, Hx Hypercholesterolemia, Hx Hypertension, Hx Pulmonary Embolism Pulmonary Medical History: Reports: Hx Asthma, Hx Bronchitis, Hx COPD - O2 4 liters daily, Hx Pneumonia Denies: Hx Sleep Apnea Neurological Medical History: Denies: Hx Cerebrovascular Accident, Hx Seizures Endocrine Medical History: Denies: Hx Diabetes Mellitus Type 1, Hx Diabetes Mellitus Type 2, Hx Hyperthyroidism, Hx Hypothyroidism Renal/ Medical History: Denies: Hx Peritoneal Dialysis GI Medical History: Denies: Hx Cirrhosis, Hx Gastroesophageal Reflux Disease, Hx Hepatitis Musculoskeltal Medical History: Reports Hx Arthritis Psychiatric Medical History: Reports: Hx Depression - Denies anxiety or depression Infectious Medical History: Denies: Hx Hepatitis Past Surgical History: Reports: Hx Section, Hx Orthopedic Surgery, Hx Tonsillectomy - Immunizations Hx Diphtheria, Pertussis, Tetanus Vaccination: Yes Hx Pneumococcal Vaccination: 04/21/94 Review of Systems - Review of Systems Notes: She denies any fever, chills, nausea, vomiting, chest pain, back pain, abdominal pain, dysuria. She does admit to productive cough, worsening shortness of breath. Physical Exam - Vital signs Vitals: Temp Pulse Resp BP Pulse Ox 98.1 F 122 H 22 H 150/87 H 93 06/19/17 11:23 06/19/17 11:23 06/19/17 11:23 06/19/17 11:23 06/19/17 11:23 Interpretation: Normal, Tachycardic, Tachypneic - General General appearance: Alert, Anxious In distress: Moderate - HEENT Head: Normocephalic, Atraumatic Eyes: Normal Pupils: PERRL Mucous membranes: Dry - Respiratory Respiratory status: No respiratory distress, Respiratory distress, Pursed lip breathing, Tachypnea. No: Cyanosis Chest status: Nontender Breath sounds: Normal, Decreased air movement - Decreased breath sounds of the left upper and lower lung fleming., Productive cough, Wheezing Chest palpation: Normal - Cardiovascular Rhythm: Regular, Tachycardia Heart sounds: Normal auscultation Murmur: No Pulses: Bounding: Radial, Dorsalis pedis Normal capillary refill: Yes - Abdominal Inspection: Normal Distension: No distension Bowel sounds: Normal Tenderness: Nontender Organomegaly: No organomegaly - Back Back: Normal, Nontender - Extremities General upper extremity: Normal inspection, Nontender, Normal color, Normal ROM , Normal temperature General lower extremity: Normal inspection, Nontender, Normal color, Normal ROM , Normal temperature, Normal weight bearing. 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 Skin Moisture: Dry Skin Color: Normal Course - Re-evaluation Re-evalutation: Laboratory 06/19/17 06/19/17 06/19/17 12:10 12:10 12:10 WBC 8.5 RBC 4.83 Hgb 14.5 Hct 43.0 MCV 89 MCH 30.0 MCHC 33.7 RDW 15.9 H Plt Count 228 Total Counted 100 Seg Neutrophils % Not Reportable Seg Neuts % (Manual) 94 H Band Neutrophils % 1 L Lymphocytes % Not Reportable Lymphocytes % (Manual) 1 L Monocytes % Not Reportable Monocytes % (Manual) 4 Eosinophils % Not Reportable Eosinophils % (Manual) 0 Basophils % Not Reportable Basophils % (Manual) 0 Absolute Neutrophils Not Reportable Abs Neuts (Manual) 8.1 Absolute Lymphocytes Not Reportable Abs Lymphs (Manual) 0.1 L Absolute Monocytes Not Reportable Abs Monocytes (Manual) 0.3 Absolute Eosinophils Not Reportable Absolute Eos (Manual) 0.0 Absolute Basophils Not Reportable Abs Basophils (Manual) 0.0 Toxic Granulation SLIGHT Platelet Comment ADEQUATE Polychromasia SLIGHT D-Dimer 0.54 H Sodium 144.1 Potassium 3.6 Chloride 98 Carbon Dioxide 34 H Anion Gap 12 BUN 13 Creatinine 0.63 Est GFR ( Amer) > 60 Est GFR (Non-Af Amer) > 60 Glucose 120 H Lactic Acid Calcium 10.6 H Phosphorus Magnesium Total Bilirubin 0.5 Direct Bilirubin 0.3 Neonat Total Bilirubin Not Reportable Neonat Direct Bilirubin Not Reportable Neonat Indirect Bili Not Reportable AST 32 ALT 37 Alkaline Phosphatase 86 Creatine Kinase 80 CK-MB (CK-2) Troponin I Total Protein 6.6 Albumin 4.4 TSH 06/19/17 06/19/17 06/19/17 12:10 12:10 13:07 WBC RBC Hgb Hct MCV MCH MCHC RDW Plt Count Total Counted Seg Neutrophils % Seg Neuts % (Manual) Band Neutrophils % Lymphocytes % Lymphocytes % (Manual) Monocytes % Monocytes % (Manual) Eosinophils % Eosinophils % (Manual) Basophils % Basophils % (Manual) Absolute Neutrophils Abs Neuts (Manual) Absolute Lymphocytes Abs Lymphs (Manual) Absolute Monocytes Abs Monocytes (Manual) Absolute Eosinophils Absolute Eos (Manual) Absolute Basophils Abs Basophils (Manual) Toxic Granulation Platelet Comment Polychromasia D-Dimer Sodium Potassium Chloride Carbon Dioxide Anion Gap BUN Creatinine Est GFR ( Amer) Est GFR (Non-Af Amer) Glucose Lactic Acid 1.6 Calcium Phosphorus 2.8 Magnesium 2.2 Total Bilirubin Direct Bilirubin Neonat Total Bilirubin Neonat Direct Bilirubin Neonat Indirect Bili AST ALT Alkaline Phosphatase Creatine Kinase CK-MB (CK-2) 2.01 Troponin I < 0.012 Total Protein Albumin TSH 06/20/17 06/20/17 06/20/17 04:12 04:12 04:12 WBC 5.6 RBC 4.32 Hgb 13.0 Hct 38.7 MCV 90 MCH 30.2 MCHC 33.7 RDW 15.4 H Plt Count 232 Total Counted Seg Neutrophils % Seg Neuts % (Manual) Band Neutrophils % Lymphocytes % Lymphocytes % (Manual) Monocytes % Monocytes % (Manual) Eosinophils % Eosinophils % (Manual) Basophils % Basophils % (Manual) Absolute Neutrophils Abs Neuts (Manual) Absolute Lymphocytes Abs Lymphs (Manual) Absolute Monocytes Abs Monocytes (Manual) Absolute Eosinophils Absolute Eos (Manual) Absolute Basophils Abs Basophils (Manual) Toxic Granulation Platelet Comment Polychromasia D-Dimer Sodium 140.9 Potassium 3.2 L Chloride 100 Carbon Dioxide 29 Anion Gap 12 BUN 18 Creatinine 0.67 Est GFR ( Amer) > 60 Est GFR (Non-Af Amer) > 60 Glucose 146 H Lactic Acid Calcium 9.6 Phosphorus 4.0 Magnesium 2.3 Total Bilirubin 0.3 Direct Bilirubin 0.2 Neonat Total Bilirubin Not Reportable Neonat Direct Bilirubin Not Reportable Neonat Indirect Bili Not Reportable AST 27 ALT 33 Alkaline Phosphatase 78 Creatine Kinase CK-MB (CK-2) Troponin I Total Protein 6.0 L Albumin 3.9 TSH 0.17 L 06/20/17 07:02 62-year-old female with a history of CHF, atrial fibrillation, diabetes, hypertension and advanced left-sided lung cancer (currently undergoing chemotherapy and radiation therapy.) Presents with complaint of worsening shortness of breath that started 3 days prior to arrival. She states over the last 3 days she has experienced worsening shortness of breath with minimal activity. She states that even walking a few feet causes her to become very short of breath. She does describe productive cough that is not different from her baseline. She does wear 4 L of oxygen at home and is not requiring an increase. Upon arrival patient appears to be in respiratory distress with tachypnea, accessory muscle use. She is wearing her normal 4 L of oxygen and is not hypoxic but even sitting up in bed causes her to become more tachypneic and tachycardic. The patient's sizer hand recommended the patient be seen and evaluated to make sure that she did not develop a pneumonia or PE. CTA was obtained and did not show PE or pneumonia but did show a enlargement of the left lung mass that is now compressing the left pulmonary artery. While patient is at rest she is okay but watching her walk a short distance to the bathroom it was evident that the patient was in severe distress. EKG was obtained and showed sinus tachycardia. She is not requiring more oxygen than her normal 4 L. I did speak to her sizer hand who recommends admission to the hospitalist with consult to him. Patient does undergo chemotherapy and radiation therapy here in this hospital. He may need to be transferred to where her oncologist works in [place] but at this time we will keep her here and provide her breathing treatments. Patient and family are agreeable with admission here. CBC shows no leukocytosis or anemia. CMP is without electrolyte abnormalities. Patient's d-dimer was slightly elevated. - Vital Signs Vital signs: Temp Pulse Resp BP Pulse Ox 98.3 F 106 H 18 130/75 H 93 06/20/17 03:36 06/20/17 04:18 06/20/17 04:18 06/20/17 03:36 06/20/17 04:18 - Laboratory Result Diagrams: 06/20/17 04:12 06/20/17 04:12 Laboratory results interpreted by me: 06/19/17 06/19/17 06/19/17 12:10 12:10 12:10 RDW 15.9 H Seg Neuts % (Manual) 94 H Band Neutrophils % 1 L Lymphocytes % (Manual) 1 L Abs Lymphs (Manual) 0.1 L D-Dimer 0.54 H Carbon Dioxide 34 H Glucose 120 H Calcium 10.6 H - Diagnostic Test Radiology reviewed: Image reviewed, Reports reviewed - EKG Interpretation by [facility] EKG shows normal: Sinus rhythm Rate: Tachycardia Rhythm: NSR Discharge - Discharge Clinical Impression: Dyspnea Qualifiers: Dyspnea type: dyspnea on exertion Qualified Code(s): R06.09 - Other forms of dyspnea Lung cancer Qualifiers: Laterality: left Lung location: unspecified part of lung Qualified Code(s): C34.92 - Malignant neoplasm of unspecified part of left bronchus or lung Condition: Fair Disposition: ADMITTED INPATIENT Admitting Provider: Hospitalist Unit Admitted: [facility]
[2017-06-19 12:31] LABS: HEMOGLOBIN 14.5 g/dL (12.0-15.5); MEAN CORPUSCULAR HGB CONC 33.7 g/dL (32.0-36.0); MEAN CORPUSCULAR VOLUME 89 fl (80-97); PLATELET COUNT 228 10^3/uL (150-450); RED BLOOD COUNT 4.83 10^6/uL (3.72-5.28); RED CELL DISTRIBUTION WIDTH 15.9 % (11.5-14.0); WHITE BLOOD COUNT 8.5 10^3/uL (4.0-10.5)
[2017-06-19 12:47] LABS: ALANINE AMINOTRANSFERASE 37 U/L (9-52); ALBUMIN 4.4 g/dL (3.5-5.0); ALKALINE PHOSPHATASE 86 U/L (38-126); ANION GAP 12 (5-19); ASPARTATE AMINO TRANSFERASE 32 U/L (14-36); BILIRUBIN,DIRECT 0.3 mg/dL (0.0-0.4); BILIRUBIN,TOTAL 0.5 mg/dL (0.2-1.3); BLOOD UREA NITROGEN 13 mg/dL (7-20); CALCIUM 10.6 mg/dL (8.4-10.2); CARBON DIOXIDE 34 mmol/L (22-30); CHLORIDE 98 mmol/L (98-107); CREATINE KINASE 80 U/L (30-135); GLUCOSE 120 mg/dL (75-110); POTASSIUM 3.6 mmol/L (3.6-5.0); SODIUM 144.1 mmol/L (137-145); TOTAL PROTEIN 6.6 g/dL (6.3-8.2)
[2017-06-19 12:53] LABS: ABSOLUTE LYMPHOCYTES# (MANUAL) 0.1 10^3/uL (0.5-4.7); ABSOLUTE MONOCYTES # (MANUAL) 0.3 10^3/uL (0.1-1.4); ABSOLUTE NEUTROPHILS# (MANUAL) 8.1 10^3/uL (1.7-8.2); BAND NEUTROPHILS % (MANUAL) 1 % (3-5); BASOPHILS % (MANUAL) 0 % (0-2); EOSINOPHILS % (MANUAL) 0 % (0-6); LYMPHOCYTES % (MANUAL) 1 % (13-45); MONOCYTES % (MANUAL) 4 % (3-13); SEGMENTED NEUTROPHILS % (MAN) 94 % (42-78); TOTAL CELLS COUNTED 100
[2017-06-19 12:55] LABS: CREATINE KINASE MB 2.01 ng/mL (<4.55)
[2017-06-19 12:56] LABS: TROPONIN I < 0.012 ng/mL
[2017-06-19 12:57] LABS: POLYCHROMASIA SLIGHT; TOXIC GRANULATION SLIGHT
[2017-06-19 12:59] LABS: PLATELET COMMENT ADEQUATE
--- NOTE | 2017-06-19 13:30 | EKG REPORT ---
SEVERITY:- ABNORMAL ECG - SINUS TACHYCARDIA WITH PAC AND PVC PROBABLE LEFT ATRIAL ABNORMALITY BORDERLINE REPOL ABNORMALITY, ANT-LAT LEADS : Confirmed by: Syd Mandel MD 19-Jun-2017 13:29:55
--- NOTE | 2017-06-19 13:56 | RADIOLOGY REPORT (SQ) ---
EXAM DESCRIPTION: CTA CHEST COMPLETED DATE/TIME: 06/19/2017 1:33 pm REASON FOR STUDY: Worsening hypoxia history of lung cancer COMPARISON: No recent chest radiograph. Prior radiograph from March. Prior CT from October 2016. TECHNIQUE: CT scan of the chest performed using helical scanning technique with dynamic intravenous contrast injection. Images reviewed with lung, soft tissue and bone windows. Reconstructed coronal and sagittal MPR images reviewed. Additional 3 dimensional post-processing performed to develop Maximal Intensity Projection images (WI P). All images stored on PACS. All CT scanners at this facility use dose modulation, iterative reconstruction, and/or weight based d osing when appropriate to reduce radiation dose to as low as reasonably achievable (ALARA). [facility]: Dose Right [facility]: CareDose [facility]: Dose Right [facility]: Teradose 4D [facility]: Poliglota CONTRAST TYPE AND DOSE: contrast/concentration: Isovue 370.00 mg/ml; Total Contrast Delivered: 79.0 ml; Total Saline Delivered: 100.0 ml Contrast bolus optimized for the pulmonary arteries. Not diagnostic for the aorta. RENAL FUNCTION: GFR > 60. RADIATION DOSE: CT Rad equipment meets quality standard of care and radiation dose reduction techniq ues were employed. CTDIvol: 3.3 - 21.1 mGy. DLP: 846 mGy-cm. . LIMITATIONS: None. FINDINGS: LUNGS AND PLEURA: Increasing volume loss in the left lung with increase in the left hilar mass. Transverse measurement 4.7 cm compared to 3.5 cm. AORTA AND GREAT VESSELS: No aneurysm. Contrast bolus not optimized for the aorta. HEART: No pericardial effusion. No significant coronary artery calcifications. PULMONARY ARTERIES: Compression in deviation of the left pulmonary artery by the extensive mass lesio n. No pulmonary emboli. HILAR AND MEDIASTINAL STRUCTURES: Extensive left hilar mass with smaller mediastinal nodes. Distal a telectasis. Of HARDWARE: None in the chest. UPPER ABDOMEN: No significant findings. Limited exam. THYROID AND OTHER SOFT TISSUES: No masses. No adenopathy. BONES: No acute or significant finding. 3D MIPS: Confirm above findings. OTHER: No other significant finding. IMPRESSION: No pulmonary emboli. Extensive left hilar mass causing atelectasis of the left upper lo be. Enlarged from the previous CT scan. Deviation and compression of the left main pulmonary artery by this extensive mass but there are no emboli. COMMENT: Quality ID # [id number]: Final reports with documentation of one or more dose reduction techniques (e.g., Automated exposure control, adjustment of the mA and/or kV according to patient size, use of iterative reconstruction technique) TECHNICAL DOCUMENTATION: JOB ID: [id number] [facility]- All Rights Reserved Reading location - IP/workstation name: [email or web address]
[2017-06-19] MEDS ORDERED: ALBUTEROL SULFATE 0.083% NEB 2.5 MG/3 ML AMPUL NEB ONE ×2 (14:55→17:14)
[2017-06-19] MEDS ORDERED: ACETAMINOPHEN 325 MG TABLET PO PRN (17:19)
[2017-06-19] MEDS ORDERED: TEMAZEPAM 15 MG CAPSULE PO PRN (17:19)
[2017-06-19] MEDS ORDERED: LEVALBUTEROL HCL NEB 0.63 MG/3 ML AMPUL NEB PRN (17:19)
[2017-06-19] MEDS ORDERED: BENZONATATE 100 MG CAPSULE PO PRN (17:43)
[2017-06-19] MEDS ORDERED: HYDROXYZINE PAMOATE 25 MG CAPSULE PO PRN (17:43)
--- NOTE | 2017-06-19 17:43 | PDOC H&P ---
History of Present Illness Admission Date/PCP: 06/19/17 15:04 HARRIET MAIER MD Oncology: [place] Pulmonology: Dr. Bethea History of Present Illness: MIKI FROST is a 62 year old female past medical history of COPD Chronic hypoxic respiratory failure on 4 L of oxygen by nasal cannula GERD Osteoporosis Hypertension Hyperlipidemia Generalized anxiety disorder Non-small cell left lung knows in November 2016 on chemo and radiation. Her oncologist is Dr. Kyrie Bernard in [place]. Phone #[phone]. Her extractor filler is Dr. Soler. He presented to the hospital today with worsening shortness of breath with severe dyspnea on exertion. She has a chronic cough which has not changed. She has been taking chemo and radiation on Tuesday and Fridays, last treatment was last . CT of the chest with contrast showed extensive hilar mass causing atelectasis of the left upper lobe which looks larger compared to prior CT scan. Deviation and compression of the left main pulmonary artery by extensive mass seen. No pulmonary emboli seen. Echocardiogram from October 2016 showed mild to moderate diastolic dysfunction no significant valvular abnormalities. For now she would like to be a full code until she discusses her prognosis with her Office Agent and Oncologist. Due for a PET scan this month. Outpatient medications Daliresp 500 mcg daily Flonase 1 spray BID Myrbetriq 50 mg daily Buspirone 10 mg PO BID Amitriptyline 10 mg PO daily Albuterol nebulizer 3 times a day Hydroxyzine 25 mg 4 times a day as needed Lasix 20 mg daily Cardizem 120 mg 3 times a day Keytruda 50 mg IV Lynnette zone 10 mg daily on days when she takes chemo Singulair 10 mg daily Spiriva once daily Symbicort twice a day Theophylline 200 mg twice a day Zetia 10 mg daily Past Medical History Cardiac Medical History: Reports: Congestive Heart Failure, Hyperlipidema, Hypertension Denies: Atrial Fibrillation, Coronary Artery Disease Pulmonary Medical History: Reports: Chronic Obstructive Pulmonary Disease (COPD ) - O2 4 liters daily, Respiratory Failure Neurological Medical History: Denies: Seizures Endocrine Medical History: Denies: Diabetes Mellitus Type 1, Diabetes Mellitus Type 2 Malignancy Medical History: Reports: Lung Cancer GI Medical History: Reports: Gastroesophageal Reflux Disease Psychiatric Medical History: Reports: General Anxiety Disorder Past Surgical History Past Surgical History: Reports: Section, Orthopedic Surgery, Tonsillectomy Social History Smoking Status: Former Smoker Frequency of Alcohol Use: None Hx Recreational Drug Use: No Drugs: None Hx Prescription Drug Abuse: No Family History Family History: Hypertension Parental Family History Reviewed: Yes Children Family History Reviewed: Yes Sibling(s) Family History Reviewed.: Yes Medication/Allergy Home Medications: Acetylcysteine [Mucomist 20% Soln 800 mg/4 ml] 1 ml IH RTQ12 06/19/17 Albuterol Sulfate [Albuterol Sulfate 2.5mg/3 mL] 1 vial IH RTQ6HP PRN 06/19/17 Albuterol Sulfate [Albuterol Sulfate 2.5mg/3 mL] 3 ml IH RTQ12 06/19/17 Albuterol Sulfate [Proair HFA] 2 puff IH Q4HP PRN 06/19/17 Amitriptyline HCl [Elavil 10 Mg Tablet] 10 mg PO QHS 06/19/17 Aspirin [Aspirin 325 mg Tablet] 325 mg PO BID 06/19/17 Benzonatate [Tessalon Perles 100 mg Capsule] 200 mg PO Q8HP PRN 06/19/17 Budesonide/Formoterol Fumarate [Symbicort Hfa 160-4.5 Mcg Inhaler 6 gm] 2 puff IH Q12@0530,1730 06/19/17 Buspirone HCl [Buspar 10 mg Tablet] 10 mg PO BID 06/19/17 Cyclophosphamide [Cytoxan 50 mg Tablet] 100 mg PO MOTUWETHFR@0800 06/19/17 Diltiazem HCl [Diltiazem 12Hr ER] 120 mg PO Q12 06/19/17 Ezetimibe [Zetia 10 mg Tablet] 10 mg PO DAILY 06/19/17 Fluticasone Propionate [Flonase Nasal [place] 50 Mcg/[place] 16 gm] 2 sprays NASL Q12 06/19/17 Folic Acid [Folvite 1 mg Tablet] 1 mg PO DAILY 06/19/17 Furosemide [Lasix 20 mg Tablet] 20 mg PO QAM 06/19/17 Hydroxyzine HCl [Atarax 25 mg Tablet] 1 tab PO Q6HP PRN 06/19/17 Mirabegron [Myrbetriq] 50 mg PO DAILY 06/19/17 Montelukast Sodium [Singulair 10 mg Tablet] 10 mg PO QHS 06/19/17 Nystatin [Mycostatin 500,000 Unit/5 ml Susp Udcup] 500,000 unit PO QIDP PRN 04/07 Ondansetron [Zofran Odt] 8 mg PO MOTUWETHFR@0800 06/19/17 Oxycodone HCl/Acetaminophen [Percocet 5-325 mg Tablet] 1 tab PO Q4HP PRN Prednisone [Deltasone 10 mg Tablet] 10 mg PO DAILY 06/19/17 Prochlorperazine Maleate [Compazine 10 mg Tablet] 10 mg PO BIDP PRN 06/19/17 Roflumilast [Daliresp 500 mcg Tablet] 500 mcg PO DAILY 06/19/17 Theophylline Anhydrous [Hans-Dur 300 Mg Tab.Sr] 300 mg PO Q12A 06/19/17 Tiotropium [place] [Spiriva Handihaler 18 mcg/dose (30 Dose)] 1 cap IH DAILY 04/07 Allergies/Adverse Reactions: asparaginase [Asparaginase] Allergy (Severe, Verified 06/19/17 11:28) throat swells cefaclor [From Ceclor] Allergy (Severe, Verified 06/19/17 11:28) hives,swell levofloxacin [From Levaquin] Allergy (Severe, Verified 06/19/17 11:28) bakers cyst behind knee nickel [Nickel] Allergy (Severe, Verified 06/19/17 11:28) itch,swell ampicillin Allergy (Verified 06/19/17 11:28) azithromycin Allergy (Verified 06/19/17 11:28) cephalexin monohydrate [From Keflex] Allergy (Verified 06/19/17 11:28) codeine [Codeine] Allergy (Verified 06/19/17 11:28) fluticasone propionate [From Advair Diskus] Allergy (Verified 06/19/17 11:28) morphine [Morphine] Allergy (Verified 06/19/17 11:28) moxifloxacin [From Avelox] Allergy (Verified 06/19/17 11:28) Penicillins Allergy (Verified 06/19/17 11:28) salmeterol xinafoate [From Advair Diskus] Allergy (Verified 06/19/17 11:28) Sulfa (Sulfonamide Antibiotics) Allergy (Verified 06/19/17 11:28) sulfamethoxazole [From Bactrim] Allergy (Verified 06/19/17 11:28) trimethoprim [From Bactrim] Allergy (Verified 06/19/17 11:28) Review of Systems Constitutional: PRESENT: weakness. ABSENT: fever(s), night sweats Nose, Mouth, and Throat: ABSENT: sore throat Cardiovascular: PRESENT: palpitations. ABSENT: chest pain Respiratory: PRESENT: cough, dyspnea. ABSENT: hemoptysis Gastrointestinal: PRESENT: diarrhea, nausea. ABSENT: vomiting Integumentary: ABSENT: rash Neurological: ABSENT: focal weakness Psychiatric: ABSENT: hallucinations Hematologic/Lymphatic: ABSENT: easy bleeding Physical Exam Vital Signs: Temp Pulse Resp BP Pulse Ox 98.1 F 122 H 22 H 150/87 H 93 06/19/17 11:23 06/19/17 11:23 06/19/17 11:23 06/19/17 11:23 06/19/17 11:23 General appearance: PRESENT: mild distress Head exam: PRESENT: atraumatic, normocephalic Eye exam: PRESENT: conjunctiva pink, EOMI, PERRLA. ABSENT: scleral icterus Ear exam: PRESENT: normal external ear exam Mouth exam: PRESENT: moist, neck supple Neck exam: ABSENT: tenderness Respiratory exam: PRESENT: accessory muscle use, rhonchi, symmetrical, wheezes Cardiovascular exam: PRESENT: RRR, tachycardia GI/Abdominal exam: PRESENT: normal bowel sounds, soft. ABSENT: tenderness Rectal exam: PRESENT: deferred Neurological exam: PRESENT: alert, awake, oriented to person, oriented to place , oriented to time, oriented to situation Psychiatric exam: PRESENT: anxious Skin exam: ABSENT: rash, skin tears Results Impressions: Chest/Abdomen CTA 06/19/17 11:55 IMPRESSION: No pulmonary emboli. Extensive left hilar mass causing atelectasis of the left upper lobe. Enlarged from the previous CT scan. Deviation and compression of the left main pulmonary artery by this extensive mass but there are no emboli. Assessment & Plan - Diagnosis (1) Dyspnea Qualifiers: Dyspnea type: dyspnea on exertion Qualified Code(s): R06.09 - Other forms of dyspnea Is this a current diagnosis for this admission?: Yes (2) Lung cancer Qualifiers: Laterality: left Lung location: unspecified part of lung Qualified Code(s ): C34.92 - Malignant neoplasm of unspecified part of left bronchus or lung Is this a current diagnosis for this admission?: Yes (3) Hypoxemia Is this a current diagnosis for this admission?: Yes (4) Tachycardia Is this a current diagnosis for this admission?: Yes (5) Oxygen dependent Is this a current diagnosis for this admission?: Yes - Time Time Spent: Greater than 70 Minutes - Inpatient Certification Medical Necessity: Significant Comorbidiites Make Outpatient Treatment Too Risky , Need Close Monitoring Due to Risk of Patient Decompensation, Risk of Complication if Not Cared For in Hospital - Plan Summary Plan Summary: Enlarging lung mass with deviation and compression of the left main pulmonary artery. Will need inpatient evaluation and monitoring. Continue outpatient inhalers and meds. Dr. Soler aware- he will see the patient in the morning. Lovenox subcutaneous daily for DVT prophylaxis.
[2017-06-19 17:58] LABS: PHOSPHORUS 2.8 mg/dL (2.5-4.5)
[2017-06-19] MEDS ORDERED: DOCUSATE SODIUM 100 MG/10 ML UDC PO SCH (18:00)
[2017-06-19] MEDS ORDERED: BUSPIRONE HCL 10 MG TABLET PO SCH (18:00)
[2017-06-19] MEDS ORDERED: LEVALBUTEROL HCL NEB 1.25 MG/3 ML AMPUL NEB ONE (18:30)
[2017-06-19] MEDS ORDERED: DILTIAZEM HCL 120 MG CAP.SR.24H PO ONE (19:00)
[2017-06-19] MEDS ORDERED: FLUTICASONE NASAL SPRAY 50 MCG/SPRY 120 SPRAY/16 GM NASL ONE (20:00)
[2017-06-19] MEDS ORDERED: BUDESONIDE/FORMOTEROL 160-4.5 MCG 60 PUFF/6 GM MDI IH ONE (21:28)
[2017-06-19] MEDS ORDERED: AMITRIPTYLINE HCL 10 MG TABLET PO SCH (22:00)
[2017-06-19] MEDS ORDERED: MONTELUKAST SODIUM 10 MG TABLET PO SCH (22:00)
[2017-06-19] MEDS: METHYLPREDNISOLONE INJ 40 MG/1 ML SDV IV SCH (22:47)
[2017-06-20] MEDS: LEVALBUTEROL HCL NEB 1.25 MG/3 ML AMPUL NEB SCH ×6 (00:53→19:48)
[2017-06-20 05:18] LABS: HEMATOCRIT 38.7 % (36.0-47.0); MEAN CORPUSCULAR HEMOGLOBIN 30.2 pg (27.0-33.4); MEAN CORPUSCULAR HGB CONC 33.7 g/dL (32.0-36.0); MEAN CORPUSCULAR VOLUME 90 fl (80-97); PLATELET COUNT 232 10^3/uL (150-450); RED BLOOD COUNT 4.32 10^6/uL (3.72-5.28); RED CELL DISTRIBUTION WIDTH 15.4 % (11.5-14.0); WHITE BLOOD COUNT 5.6 10^3/uL (4.0-10.5)
[2017-06-20] MEDS: METHYLPREDNISOLONE INJ 40 MG/1 ML SDV IV SCH ×3 (05:18→21:24)
[2017-06-20] MEDS ORDERED: BUDESONIDE/FORMOTEROL 160-4.5 MCG 60 PUFF/6 GM MDI IH SCH ×2 (05:30→22:00)
[2017-06-20] MEDS ORDERED: ASPIRIN 325 MG TABLET PO SCH ×2 (05:30→22:00)
[2017-06-20 05:44] LABS: ALANINE AMINOTRANSFERASE 33 U/L (9-52); ALBUMIN 3.9 g/dL (3.5-5.0); ALKALINE PHOSPHATASE 78 U/L (38-126); ANION GAP 12 (5-19); ASPARTATE AMINO TRANSFERASE 27 U/L (14-36); BILIRUBIN,DIRECT 0.2 mg/dL (0.0-0.4); BILIRUBIN,TOTAL 0.3 mg/dL (0.2-1.3); BLOOD UREA NITROGEN 18 mg/dL (7-20); CALCIUM 9.6 mg/dL (8.4-10.2); CARBON DIOXIDE 29 mmol/L (22-30); CHLORIDE 100 mmol/L (98-107); GLUCOSE 146 mg/dL (75-110); POTASSIUM 3.2 mmol/L (3.6-5.0); SODIUM 140.9 mmol/L (137-145)
[2017-06-20] MEDS ORDERED: BUSPIRONE HCL 10 MG TABLET PO SCH ×2 (06:00→22:00)
[2017-06-20] MEDS ORDERED: LANSOPRAZOLE 30 MG TAB.RAP.DR PO SCH (06:00)
[2017-06-20] MEDS ORDERED: EZETIMIBE 10 MG TABLET PO SCH ×2 (06:00→10:00)
[2017-06-20] MEDS ORDERED: DOCUSATE SODIUM 100 MG/10 ML UDC PO SCH (06:00)
[2017-06-20] MEDS ORDERED: ROFLUMILAST 500 MCG TABLET PO SCH ×2 (06:00→10:00)
[2017-06-20] MEDS ORDERED: DILTIAZEM HCL 120 MG CAP.SR.24H PO SCH ×3 (06:00→22:00)
[2017-06-20] MEDS ORDERED: FOLIC ACID 1 MG TABLET PO SCH ×2 (06:15→10:00)
[2017-06-20] MEDS ORDERED: POTASSIUM CHLORIDE 10 MEQ TABLET.SA PO ONE ×2 (06:21→08:15)
[2017-06-20] MEDS ORDERED: FUROSEMIDE 20 MG TABLET PO SCH (08:00)
[2017-06-20] MEDS: ONDANSETRON HCL 8 MG TABLET PO SCH (08:48)
[2017-06-20] MEDS ORDERED: FUROSEMIDE 20 MG TABLET PO ONE (09:00)
[2017-06-20] MEDS: ENOXAPARIN SODIUM INJ 40 MG/0.4 ML DISP.SYRIN SUBCUT SCH (09:04)
[2017-06-20] MEDS ORDERED: TIOTROPIUM BROMIDE DPI 5 CAP/KIT (18 MCG/CAP) IH SCH (10:00)
[2017-06-20] MEDS ORDERED: (PENDING PHARMACY ID) (Mirabegron [Myrbetriq] 50 MG) PO SCH (10:00)
[2017-06-20] MEDS ORDERED: DOCUSATE SODIUM 100 MG CAPSULE PO SCH (10:00)
[2017-06-20] MEDS ORDERED: THEOPHYLLINE ANHYDROUS 300 MG TAB.SR.12H PO ONE (10:00)
[2017-06-20] MEDS ORDERED: FLUTICASONE NASAL SPRAY 50 MCG/SPRY 120 SPRAY/16 GM NASL SCH (10:00)
--- NOTE | 2017-06-20 13:14 | PDOC PROGRESS REPORT ---
Subjective Progress Note for:: 06/20/17 Subjective:: 62 yr old female with COPD Chronic hypoxic respiratory failure on 4 L of oxygen by nasal cannula GERD Osteoporosis Hypertension Hyperlipidemia Generalized anxiety disorder Non-small cell left lung knows in November 2016 on chemo and radiation. Her oncologist is Dr. Kyrie Bernard in [place]. Phone #[phone]. Her line maintainer section is Dr. Soler. He presented to the hospital today with worsening shortness of breath with severe dyspnea on exertion. She has a chronic cough which has not changed. She has been taking chemo and radiation on Tuesday and Fridays, last treatment was last . CT of the chest with contrast showed extensive hilar mass causing atelectasis of the left upper lobe which looks larger compared to prior CT scan. Deviation and compression of the left main pulmonary artery by extensive mass seen. No pulmonary emboli seen. Echocardiogram from October 2016 showed mild to moderate diastolic dysfunction no significant valvular abnormalities. She is a full code until she discusses her prognosis with her Product Safety Coordinator and Oncologist. feels a little better today. Is dyspneic with minimal exertion. Reason For Visit: WORSENING DYSPNEA LUNG CANCER Physical Exam Vital Signs: Temp Pulse Resp BP Pulse Ox 98.9 F 127 H 22 H 121/71 96 06/20/17 12:24 06/20/17 12:24 06/20/17 12:24 06/20/17 12:24 06/20/17 12:24 Intake & Output 06/19/17 06/20/17 06/21/17 06:59 06:59 06:59 Intake Total 221 Output Total 0 Balance 221 Weight 96.1 kg General appearance: PRESENT: mild distress Head exam: PRESENT: atraumatic, normocephalic Eye exam: PRESENT: conjunctiva pink, EOMI, PERRLA. ABSENT: scleral icterus Mouth exam: PRESENT: moist, neck supple Neck exam: ABSENT: tenderness Respiratory exam: PRESENT: symmetrical, wheezes. ABSENT: crackles Cardiovascular exam: PRESENT: RRR GI/Abdominal exam: PRESENT: normal bowel sounds, soft. ABSENT: tenderness Rectal exam: PRESENT: deferred Neurological exam: PRESENT: alert, awake, oriented to person, oriented to place , oriented to time Skin exam: ABSENT: rash Results Laboratory Results: 06/20/17 04:12 06/20/17 04:12 06/20/17 06/20/17 06/20/17 04:12 04:12 04:12 WBC 5.6 RBC 4.32 Hgb 13.0 Hct 38.7 MCV 90 MCH 30.2 MCHC 33.7 RDW 15.4 H Plt Count 232 Sodium 140.9 Potassium 3.2 L Chloride 100 Carbon Dioxide 29 Anion Gap 12 BUN 18 Creatinine 0.67 Est GFR ( Amer) > 60 Est GFR (Non-Af Amer) > 60 Glucose 146 H Calcium 9.6 Phosphorus 4.0 Magnesium 2.3 Total Bilirubin 0.3 AST 27 ALT 33 Alkaline Phosphatase 78 Total Protein 6.0 L Albumin 3.9 TSH 0.17 L 06/20/17 04:12 NT-Pro-B Natriuret Pep 243 Impressions: Chest/Abdomen CTA 06/19/17 11:55 IMPRESSION: No pulmonary emboli. Extensive left hilar mass causing atelectasis of the left upper lobe. Enlarged from the previous CT scan. Deviation and compression of the left main pulmonary artery by this extensive mass but there are no emboli. Assessment & Plan - Diagnosis (1) Dyspnea Qualifiers: Dyspnea type: dyspnea on exertion Qualified Code(s): R06.09 - Other forms of dyspnea Is this a current diagnosis for this admission?: Yes (2) Lung cancer Qualifiers: Laterality: left Lung location: unspecified part of lung Qualified Code(s ): C34.92 - Malignant neoplasm of unspecified part of left bronchus or lung Is this a current diagnosis for this admission?: Yes (3) Hypoxemia Is this a current diagnosis for this admission?: Yes (4) Tachycardia Is this a current diagnosis for this admission?: Yes (5) Oxygen dependent Is this a current diagnosis for this admission?: Yes - Time Time Spent with patient: 25-34 minutes - Plan Summary Plan Summary: L lung mass with compression of the left main pulmonary artery with deviation Continue outpatient inhalers and steroids. Dr. Soler and Dr. Stark consulted. Continue Lovenox subcutaneous daily for DVT prophylaxis.
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
[2017-06-20] MEDS: THEOPHYLLINE ANHYDROUS 300 MG TAB.SR.12H PO SCH (16:59)
[2017-06-20] MEDS: ASPIRIN 325 MG TABLET PO SCH (16:59)
[2017-06-20] MEDS: DOCUSATE SODIUM 100 MG CAPSULE PO SCH (17:00)
[2017-06-20] MEDS: DILTIAZEM HCL 120 MG CAP.SR.24H PO SCH (17:00)
[2017-06-20] MEDS: BUSPIRONE HCL 10 MG TABLET PO SCH (17:00)
[2017-06-20] MEDS: LANSOPRAZOLE 30 MG TAB.RAP.DR PO SCH (17:01)
[2017-06-20] MEDS: OXYCODONE-ACETAMINOPHEN 5-325 MG TABLET PO PRN (17:01)
[2017-06-20] MEDS: FLUTICASONE NASAL SPRAY 50 MCG/SPRY 120 SPRAY/16 GM NASL SCH (17:02)
[2017-06-20] MEDS: BUDESONIDE/FORMOTEROL 160-4.5 MCG 60 PUFF/6 GM MDI IH SCH (17:03)
[2017-06-20] MEDS ORDERED: MONTELUKAST SODIUM 10 MG TABLET PO ONE (18:00)
[2017-06-20] MEDS ORDERED: AMITRIPTYLINE HCL 10 MG TABLET PO ONE (18:00)
[2017-06-21] MEDS: LEVALBUTEROL HCL NEB 1.25 MG/3 ML AMPUL NEB SCH ×6 (00:01→20:53)
[2017-06-21] MEDS ORDERED: THEOPHYLLINE ANHYDROUS 300 MG TAB.SR.12H PO SCH (05:00)
[2017-06-21 05:04] LABS: ANION GAP 10 (5-19); BLOOD UREA NITROGEN 19 mg/dL (7-20); CALCIUM 10.1 mg/dL (8.4-10.2); CARBON DIOXIDE 32 mmol/L (22-30); CHLORIDE 101 mmol/L (98-107); GLUCOSE 140 mg/dL (75-110); POTASSIUM 4.4 mmol/L (3.6-5.0); SODIUM 142.9 mmol/L (137-145)
[2017-06-21] MEDS: DILTIAZEM HCL 120 MG CAP.SR.24H PO SCH ×2 (05:04→17:15)
[2017-06-21] MEDS: FOLIC ACID 1 MG TABLET PO SCH (05:04)
[2017-06-21] MEDS: EZETIMIBE 10 MG TABLET PO SCH (05:04)
[2017-06-21] MEDS: METHYLPREDNISOLONE INJ 40 MG/1 ML SDV IV SCH ×3 (05:04→22:03)
[2017-06-21] MEDS: ASPIRIN 325 MG TABLET PO SCH ×2 (05:04→17:14)
[2017-06-21] MEDS: DOCUSATE SODIUM 100 MG CAPSULE PO SCH ×2 (05:05→17:12)
[2017-06-21] MEDS: FUROSEMIDE 20 MG TABLET PO SCH (05:05)
[2017-06-21] MEDS: ROFLUMILAST 500 MCG TABLET PO SCH (05:05)
[2017-06-21] MEDS: BUSPIRONE HCL 10 MG TABLET PO SCH ×2 (05:05→17:14)
[2017-06-21] MEDS: FLUTICASONE NASAL SPRAY 50 MCG/SPRY 120 SPRAY/16 GM NASL SCH ×2 (05:05→17:16)
[2017-06-21] MEDS: THEOPHYLLINE ANHYDROUS 300 MG TAB.SR.12H PO SCH ×2 (05:05→17:13)
[2017-06-21] MEDS: LANSOPRAZOLE 30 MG TAB.RAP.DR PO SCH ×2 (05:05→17:12)
[2017-06-21] MEDS: BUDESONIDE/FORMOTEROL 160-4.5 MCG 60 PUFF/6 GM MDI IH SCH ×2 (05:06→17:15)
[2017-06-21 05:25] LABS: FREE T4 (FREE THYROXINE) 1.47 ng/dL (0.78-2.19)
[2017-06-21 05:39] LABS: THYROID STIMULATING HORMONE 0.05 uIU/mL (0.47-4.68)
[2017-06-21] MEDS: ONDANSETRON HCL 8 MG TABLET PO SCH (07:47)
[2017-06-21] MEDS ORDERED: EZETIMIBE 10 MG TABLET PO SCH (10:00)
[2017-06-21] MEDS ORDERED: FOLIC ACID 1 MG TABLET PO SCH (10:00)
[2017-06-21] MEDS ORDERED: ROFLUMILAST 500 MCG TABLET PO SCH (10:00)
[2017-06-21] MEDS ORDERED: MIRABEGRON 50 MG PO SCH (10:00)
[2017-06-21] MEDS: ENOXAPARIN SODIUM INJ 40 MG/0.4 ML DISP.SYRIN SUBCUT SCH (10:01)
[2017-06-21] MEDS: MONTELUKAST SODIUM 10 MG TABLET PO SCH (17:13)
[2017-06-21] MEDS: AMITRIPTYLINE HCL 10 MG TABLET PO SCH (17:14)
--- NOTE | 2017-06-21 17:14 | PDOC PROGRESS REPORT ---
Subjective Progress Note for:: 06/21/17 Subjective:: Tearful and anxious about her diagnosis and discussions about code status. Reason For Visit: Ms. Khan is a 62-year-old with a history of lung cancer who presented to the hospital with worsening shortness of breath with severe dyspnea on exertion. She has a chronic cough which has not changed. She has been taking chemo and radiation Tuesday - Fridays. Her last treatment was June 16. CT of the chest with contrast showed extensive hilar mass causing atelectasis of the left upper lobe which looks larger compared to prior CT scan; Deviation and compression of the left main pulmonary artery by this extensive mass seen; No pulmonary emboli seen. Her digital cartographer, , was consulted. She was treated with IV steroids along with inhaled bronchodilators. Physical Exam Vital Signs: Temp Pulse Resp BP Pulse Ox 98.3 F 119 H 20 103/69 94 06/21/17 07:23 06/21/17 11:33 06/21/17 11:33 06/21/17 07:23 06/21/17 11:42 Pulse Oximeter Continuous Start: 06/20/17 12: 07 Freq: RTQ4 Status: Active Document 06/21/17 11:42 TPO (Rec: 06/21/17 11:43 TPO [email or web address]) Pulse Oximetry Assessment Oxygen Saturation (92-100) 94 Oxygen Flow Rate (L/min) 4 Oxygen Delivery Method Nasal Cannula Fraction of Inspired Oxygen (FIO2) 36 Equipment Usage Equipment in Use Continuous SpO2 Machine # [id number] Intake & Output 06/20/17 06/21/17 06/22/17 06:59 06:59 06:59 Intake Total 221 2107 Output Total 0 Balance 221 2107 Weight 96.1 kg 98.6 kg General appearance: PRESENT: no acute distress Head exam: PRESENT: atraumatic, normocephalic Eye exam: PRESENT: EOMI, PERRLA Respiratory exam: PRESENT: unlabored, wheezes. ABSENT: accessory muscle use Cardiovascular exam: PRESENT: RRR. ABSENT: diastolic murmur, rubs, systolic murmur Musculoskeletal exam: PRESENT: ambulatory Neurological exam: PRESENT: alert, awake, oriented to person, oriented to place , oriented to time, oriented to situation, CN II-XII grossly intact. ABSENT: motor sensory deficit Psychiatric exam: PRESENT: appropriate affect, normal mood. ABSENT: homicidal ideation, suicidal ideation Skin exam: PRESENT: dry, intact, warm. ABSENT: cyanosis, rash Results Laboratory Results: 06/20/17 04:12 06/21/17 04:23 06/21/17 06/21/17 04:23 04:23 Sodium 142.9 Potassium 4.4 Chloride 101 Carbon Dioxide 32 H Anion Gap 10 BUN 19 Creatinine 0.74 Est GFR ( Amer) > 60 Est GFR (Non-Af Amer) > 60 Glucose 140 H Calcium 10.1 TSH 0.05 L Free T4 1.47 06/20/17 04:12 NT-Pro-B Natriuret Pep 243 Impressions: Chest/Abdomen CTA 06/19/17 11:55 IMPRESSION: No pulmonary emboli. Extensive left hilar mass causing atelectasis of the left upper lobe. Enlarged from the previous CT scan. Deviation and compression of the left main pulmonary artery by this extensive mass but there are no emboli. Assessment & Plan - Diagnosis (1) Acute and chronic respiratory failure ([id number]) Qualifiers: Respiratory failure complication: hypoxia Qualified Code(s): J96.21 - Acute and chronic respiratory failure with hypoxia Is this a current diagnosis for this admission?: Yes Plan: She has shown some improvement over the course of her hospital stay. Continue oxygen, steroids, and bronchodilators. (2) COPD (chronic obstructive pulmonary disease) with emphysema Qualifiers: Emphysema type: unspecified Qualified Code(s): J43.9 - Emphysema, unspecified Is this a current diagnosis for this admission?: Yes Plan: See above (3) Lung cancer Qualifiers: Laterality: left Lung location: unspecified part of lung Qualified Code(s ): C34.92 - Malignant neoplasm of unspecified part of left bronchus or lung Is this a current diagnosis for this admission?: Yes Plan: Follow-up with her oncologist Dr. Kyrie Bernard in [place] (4) Chronic diastolic (congestive) heart failure Is this a current diagnosis for this admission?: Yes Plan: Stable. - Time Time Spent with patient: 25-34 minutes Medications reviewed and adjusted accordingly: Yes Anticipated discharge: Home - Inpatient Certification Based on my medical assessment, after consideration of the patient's comorbidities, presenting symptoms, or acuity I expect that the services needed warrant INPATIENT care.: Yes I certify that my determination is in accordance with my understanding of Medicare's requirements for reasonable and necessary INPATIENT services [42 CFR 412.3e].: Yes Medical Necessity: Failure to Improve With Outpatient Therapy, Need for Nebulizer Therapy and Monitoring of Response
[2017-06-21] MEDS ORDERED: GUAIFENESIN 600 MG TABLET.SA PO ONE (19:00)
[2017-06-21] MEDS: ACETYLCYSTEINE 20% SOLN 800 MG/4 ML VIAL.NEB NEB SCH (20:53)
[2017-06-22] MEDS: LEVALBUTEROL HCL NEB 1.25 MG/3 ML AMPUL NEB SCH ×7 (00:09→23:20)
[2017-06-22] MEDS ORDERED: CYCLOPHOSPHAMIDE PO SCH (05:00)
[2017-06-22] MEDS: LANSOPRAZOLE 30 MG TAB.RAP.DR PO SCH ×2 (05:14→16:10)
[2017-06-22] MEDS: ASPIRIN 325 MG TABLET PO SCH ×2 (05:14→16:09)
[2017-06-22] MEDS: DOCUSATE SODIUM 100 MG CAPSULE PO SCH ×2 (05:14→16:09)
[2017-06-22] MEDS: FOLIC ACID 1 MG TABLET PO SCH (05:14)
[2017-06-22] MEDS: FUROSEMIDE 20 MG TABLET PO SCH (05:14)
[2017-06-22] MEDS: DILTIAZEM HCL 120 MG CAP.SR.24H PO SCH ×2 (05:14→16:09)
[2017-06-22] MEDS: EZETIMIBE 10 MG TABLET PO SCH (05:14)
[2017-06-22] MEDS: METHYLPREDNISOLONE INJ 40 MG/1 ML SDV IV SCH ×3 (05:14→21:06)
[2017-06-22] MEDS: BUSPIRONE HCL 10 MG TABLET PO SCH ×2 (05:14→16:09)
[2017-06-22] MEDS: BUDESONIDE/FORMOTEROL 160-4.5 MCG 60 PUFF/6 GM MDI IH SCH ×2 (05:15→16:10)
[2017-06-22] MEDS: THEOPHYLLINE ANHYDROUS 300 MG TAB.SR.12H PO SCH ×2 (05:15→16:09)
[2017-06-22] MEDS: FLUTICASONE NASAL SPRAY 50 MCG/SPRY 120 SPRAY/16 GM NASL SCH ×2 (05:15→16:10)
[2017-06-22] MEDS: ROFLUMILAST 500 MCG TABLET PO SCH (05:15)
[2017-06-22] MEDS: ONDANSETRON HCL 8 MG TABLET PO SCH (08:48)
[2017-06-22] MEDS: CYCLOPHOSPHAMIDE 50 MG PO PRN (09:15)
[2017-06-22] MEDS: GUAIFENESIN 600 MG TABLET.SA PO SCH ×2 (09:15→17:32)
[2017-06-22] MEDS: ENOXAPARIN SODIUM INJ 40 MG/0.4 ML DISP.SYRIN SUBCUT SCH (09:16)
[2017-06-22] MEDS: MIRABEGRON 50 MG PO SCH (09:18)
--- NOTE | 2017-06-22 11:20 | PDOC PROGRESS REPORT ---
Subjective Progress Note for:: 06/22/17 Subjective:: Ms. Khan is a 62-year-old with a history of lung cancer who presented to the hospital with worsening shortness of breath with severe dyspnea on exertion. She has a chronic cough which has not changed. She has been taking chemo and radiation Tuesday - Fridays. Her last treatment was June 16. CT of the chest with contrast showed extensive hilar mass causing atelectasis of the left upper lobe which looks larger compared to prior CT scan; Deviation and compression of the left main pulmonary artery by this extensive mass seen; No pulmonary emboli seen. Her material specialist, , was consulted. She was treated with IV steroids along with inhaled bronchodilators. 4/3 Tearful and anxious about her diagnosis and discussions about code status. 4/4 SOB with exertion. Reason For Visit: WORSENING DYSPNEA LUNG CANCER Physical Exam Vital Signs: Temp Pulse Resp BP Pulse Ox 97.9 F 103 H 16 115/78 92 06/22/17 07:41 06/22/17 07:45 06/22/17 07:45 06/22/17 07:41 06/22/17 07:45 Pulse Oximeter Continuous Start: 06/20/17 12: 07 Freq: RTQ4 Status: Active Document 06/22/17 07:45 TPO (Rec: 06/22/17 08:12 TPO [email or web address]) Pulse Oximetry Assessment Oxygen Saturation (92-100) 92 Oxygen Flow Rate (L/min) 4 Oxygen Delivery Method Nasal Cannula Fraction of Inspired Oxygen (FIO2) 36 Equipment Usage Equipment in Use Continuous SpO2 Machine # 13 Intake & Output 06/21/17 06/22/17 06/23/17 06:59 06:59 06:59 Intake Total 2106 1680 Balance 210 1680 Weight 98.6 kg 98.4 kg General appearance: PRESENT: no acute distress, obese Head exam: PRESENT: atraumatic, normocephalic Eye exam: PRESENT: EOMI, PERRLA Respiratory exam: PRESENT: crackles - right sided, wheezes. ABSENT: accessory muscle use, unlabored GI/Abdominal exam: PRESENT: normal bowel sounds, soft. ABSENT: distended, guarding, mass, organolmegaly, rebound, tenderness Neurological exam: PRESENT: alert, awake, oriented to person, oriented to place , oriented to time, oriented to situation, CN II-XII grossly intact. ABSENT: motor sensory deficit Psychiatric exam: PRESENT: appropriate affect, normal mood. ABSENT: homicidal ideation, suicidal ideation Results Laboratory Results: 06/20/17 04:12 06/21/17 04:23 06/20/17 04:12 NT-Pro-B Natriuret Pep 243 Impressions: Chest/Abdomen CTA 06/19/17 11:55 IMPRESSION: No pulmonary emboli. Extensive left hilar mass causing atelectasis of the left upper lobe. Enlarged from the previous CT scan. Deviation and compression of the left main pulmonary artery by this extensive mass but there are no emboli. Assessment & Plan - Diagnosis (1) Acute and chronic respiratory failure ([id number]) Qualifiers: Respiratory failure complication: hypoxia Qualified Code(s): J96.21 - Acute and chronic respiratory failure with hypoxia Is this a current diagnosis for this admission?: Yes Plan: She has shown some improvement over the course of her hospital stay. Continue oxygen, steroids, and bronchodilators. (2) COPD (chronic obstructive pulmonary disease) with emphysema Qualifiers: Emphysema type: unspecified Qualified Code(s): J43.9 - Emphysema, unspecified Is this a current diagnosis for this admission?: Yes Plan: See above (3) Lung cancer Qualifiers: Laterality: left Lung location: unspecified part of lung Qualified Code(s ): C34.92 - Malignant neoplasm of unspecified part of left bronchus or lung Is this a current diagnosis for this admission?: Yes Plan: Follow-up with her oncologist Dr. Kyrie Bernard in [place] (4) Chronic diastolic (congestive) heart failure Is this a current diagnosis for this admission?: Yes Plan: Stable. (5) Tachycardia Is this a current diagnosis for this admission?: Yes Plan: Likely due to chronic exertion and hypoxemia. Hopefully, as her breathing improves so will her heart rate. - Time Time Spent with patient: 25-34 minutes Medications reviewed and adjusted accordingly: Yes Anticipated discharge: Home - Inpatient Certification Based on my medical assessment, after consideration of the patient's comorbidities, presenting symptoms, or acuity I expect that the services needed warrant INPATIENT care.: Yes I certify that my determination is in accordance with my understanding of Medicare's requirements for reasonable and necessary INPATIENT services [42 CFR 412.3e].: Yes Medical Necessity: Failure to Improve With Outpatient Therapy, Need Close Monitoring Due to Risk of Patient Decompensation
[2017-06-22] MEDS: ACETYLCYSTEINE 20% SOLN 800 MG/4 ML VIAL.NEB NEB SCH ×2 (11:42→19:58)
[2017-06-22] MEDS: AMITRIPTYLINE HCL 10 MG TABLET PO SCH (16:09)
[2017-06-22] MEDS: MONTELUKAST SODIUM 10 MG TABLET PO SCH (16:12)
[2017-06-23] MEDS: LEVALBUTEROL HCL NEB 1.25 MG/3 ML AMPUL NEB SCH ×5 (04:27→20:04)
[2017-06-23] MEDS: FUROSEMIDE 20 MG TABLET PO SCH (05:13)
[2017-06-23] MEDS: ASPIRIN 325 MG TABLET PO SCH ×2 (05:13→17:16)
[2017-06-23] MEDS: BUSPIRONE HCL 10 MG TABLET PO SCH ×2 (05:13→17:18)
[2017-06-23] MEDS: DOCUSATE SODIUM 100 MG CAPSULE PO SCH ×2 (05:13→17:17)
[2017-06-23] MEDS: METHYLPREDNISOLONE INJ 40 MG/1 ML SDV IV SCH ×3 (05:13→21:15)
[2017-06-23] MEDS: THEOPHYLLINE ANHYDROUS 300 MG TAB.SR.12H PO SCH ×2 (05:13→17:16)
[2017-06-23] MEDS: DILTIAZEM HCL 120 MG CAP.SR.24H PO SCH ×2 (05:13→17:17)
[2017-06-23] MEDS: ONDANSETRON HCL 8 MG TABLET PO SCH (05:14)
[2017-06-23] MEDS: LANSOPRAZOLE 30 MG TAB.RAP.DR PO SCH ×2 (05:14→17:20)
[2017-06-23] MEDS: FOLIC ACID 1 MG TABLET PO SCH (05:14)
[2017-06-23] MEDS: EZETIMIBE 10 MG TABLET PO SCH (05:14)
[2017-06-23] MEDS: BUDESONIDE/FORMOTEROL 160-4.5 MCG 60 PUFF/6 GM MDI IH SCH ×2 (05:14→17:21)
[2017-06-23] MEDS: FLUTICASONE NASAL SPRAY 50 MCG/SPRY 120 SPRAY/16 GM NASL SCH ×2 (05:16→17:21)
[2017-06-23] MEDS: MIRABEGRON 50 MG PO SCH (05:20)
[2017-06-23] MEDS: GUAIFENESIN 600 MG TABLET.SA PO SCH (05:25)
[2017-06-23] MEDS: ROFLUMILAST 500 MCG TABLET PO SCH (05:25)
[2017-06-23] MEDS: CYCLOPHOSPHAMIDE 50 MG PO PRN (06:45)
[2017-06-23] MEDS: ACETYLCYSTEINE 20% SOLN 800 MG/4 ML VIAL.NEB NEB SCH ×2 (07:41→20:04)
[2017-06-23] MEDS: ENOXAPARIN SODIUM INJ 40 MG/0.4 ML DISP.SYRIN SUBCUT SCH (09:34)
--- NOTE | 2017-06-23 13:13 | PDOC PROGRESS REPORT ---
Subjective Progress Note for:: 06/22/17 Subjective:: Concern with not yet having received radiation treatment Reason For Visit: WORSENING DYSPNEA LUNG CANCER Physical Exam Vital Signs: Temp Pulse Resp BP Pulse Ox 98.0 F 102 H 16 124/77 91 L 06/23/17 11:50 06/23/17 12:08 06/23/17 12:08 06/23/17 11:50 06/23/17 12:08 Pulse Oximeter Continuous Start: 06/20/17 12: 07 Freq: RTQ4 Status: Active Document 06/23/17 12:08 JDR (Rec: 06/23/17 12:09 JDR [email or web address]) Pulse Oximetry Assessment Oxygen Saturation (92-100) 91 Oxygen Flow Rate (L/min) 4 Oxygen Delivery Method Nasal Cannula Fraction of Inspired Oxygen (FIO2) 36 Equipment Usage Equipment in Use Continuous SpO2 Machine # 13 Intake & Output 06/22/17 06/23/17 06/24/17 06:59 06:59 06:59 Intake Total 1680 2156 0 Balance 1680 2156 0 Weight 98.4 kg 98.2 kg General appearance: PRESENT: no acute distress, cooperative, disheveled, obese Head exam: PRESENT: atraumatic, normocephalic Eye exam: PRESENT: conjunctiva pale, EOMI. ABSENT: nystagmus, periorbital swelling, scleral icterus Mouth exam: PRESENT: moist, neck supple, tongue midline Neck exam: ABSENT: carotid bruit, JVD, lymphadenopathy, thyromegaly, tracheal deviation, tracheostomy Respiratory exam: PRESENT: decreased breath sounds, prolonged expiratory phas, rales, rhonchi, symmetrical, tachypnea, unlabored. ABSENT: retraction, stridor Cardiovascular exam: PRESENT: RRR, +S1, +S2 Pulses: PRESENT: normal radial pulses GI/Abdominal exam: PRESENT: diminished bowel sounds, soft Extremities exam: ABSENT: calf tenderness, clubbing, joint swelling Musculoskeletal exam: ABSENT: deformity, dislocation Neurological exam: PRESENT: awake, oriented to person, oriented to place, oriented to time, oriented to situation Psychiatric exam: PRESENT: normal mood Skin exam: PRESENT: dry, warm Results Laboratory Results: 06/20/17 04:12 06/21/17 04:23 06/20/17 04:12 NT-Pro-B Natriuret Pep 243 Impressions: Chest/Abdomen CTA 06/19/17 11:55 IMPRESSION: No pulmonary emboli. Extensive left hilar mass causing atelectasis of the left upper lobe. Enlarged from the previous CT scan. Deviation and compression of the left main pulmonary artery by this extensive mass but there are no emboli. Assessment & Plan - Diagnosis (1) Lung cancer Qualifiers: Laterality: left Lung location: unspecified part of lung Qualified Code(s ): C34.92 - Malignant neoplasm of unspecified part of left bronchus or lung Is this a current diagnosis for this admission?: Yes Plan: DR Kyrie Bernard [phone] Oncology i haved called left my name he should call back to [place] with in 24-48 hrs (2) Acute and chronic respiratory failure ([id number]) Qualifiers: Respiratory failure complication: hypoxia Qualified Code(s): J96.21 - Acute and chronic respiratory failure with hypoxia Is this a current diagnosis for this admission?: Yes Plan: continue current rx (3) COPD (chronic obstructive pulmonary disease) with emphysema Qualifiers: Emphysema type: unspecified Qualified Code(s): J43.9 - Emphysema, unspecified Is this a current diagnosis for this admission?: Yes Plan: consider d/c singular Generic Name Dose Route Start Last Admin Trade Name Freq PRN Reason Stop Dose Admin Roflumilast 500 mcg 06/21/17 05:00 Daliresp 500 Mcg Tablet PO 07/21/17 04:59 DAILY@0500 [facility] Fluticasone Propionate 2 spray 06/20/17 17:00 Flonase Nasal [place] 50 Mcg/[place] 16 Gm NASL 07/20/17 16:59 Q12@0500,1700 [facility] Theophylline 300 mg 06/21/17 05:00 Hans-Dur 300 Mg Tab.Sr PO 07/21/17 04:59 DAILY@0500 [facility] Budesonide/Formoterol Fumarate 2 puff 06/20/17 17:00 Symbicort Hfa 160-4.5 Mcg Inhaler 6 Gm IH 07/20/17 16:59 Q12@0500,1700 [facility] Methylprednisolone Sodium Succinate 40 mg 06/19/17 22:00 06/20/17 14:24 Solu-Medrol Inj/Pf 40 Mg/1 Ml Sdv IV 07/19/17 21:59 40 mg Q8 KATE Benzonatate 200 mg 06/19/17 17:43 Tessalon Perles 100 Mg Capsule PO 07/19/17 17:42 Q8HP PRN FOR COUGH Levalbuterol HCl 0.63 mg 06/19/17 17:19 Xopenex Neb 0.63 Mg/3 Ml Ampul NEB 07/19/17 17:18 RTQ2HP PRN SHORTNESS OF BREATH Levalbuterol HCl 1.25 mg 06/20/17 00:00 06/20/17 12:08 Xopenex Neb 1.25 Mg/3 Ml Ampul NEB 07/20/17 00:00 1.25 mg RTQ4 KATE Montelukast Sodium 10 mg 06/19/17 22:00 06/19/17 22:39 Singulair 10 Mg Tablet PO 07/19/17 21:59 Not Given QHS KATE
--- NOTE | 2017-06-23 13:15 | PDOC PROGRESS REPORT ---
Subjective Progress Note for:: 06/23/17 Subjective:: Status post radiation therapy Reason For Visit: WORSENING DYSPNEA LUNG CANCER Physical Exam Vital Signs: Temp Pulse Resp BP Pulse Ox 98.2 F 111 H 20 122/80 92 06/23/17 08:05 06/23/17 08:05 06/23/17 08:05 06/23/17 08:05 06/23/17 08:05 Pulse Oximeter Continuous Start: 06/20/17 12: 07 Freq: RTQ4 Status: Active Document 06/23/17 07:44 JDR (Rec: 06/23/17 08:09 JDR [email or web address]) Pulse Oximetry Assessment Oxygen Saturation (92-100) 94 Oxygen Flow Rate (L/min) 3 Oxygen Delivery Method Nasal Cannula Fraction of Inspired Oxygen (FIO2) 32 Equipment Usage Equipment in Use Continuous SpO2 Machine # 13 Intake & Output 06/22/17 06/23/17 06/24/17 06:59 06:59 06:59 Intake Total 1680 2156 Balance 1680 2156 Weight 98.4 kg 98.2 kg General appearance: PRESENT: no acute distress, cooperative, disheveled, obese Head exam: PRESENT: atraumatic, normocephalic Eye exam: PRESENT: conjunctiva pale, EOMI. ABSENT: nystagmus, periorbital swelling, scleral icterus Mouth exam: PRESENT: moist, neck supple, tongue midline Neck exam: ABSENT: carotid bruit, JVD, lymphadenopathy, thyromegaly, tracheal deviation, tracheostomy Respiratory exam: PRESENT: decreased breath sounds, prolonged expiratory phas, rales, rhonchi, symmetrical, tachypnea, unlabored, wheezes. ABSENT: retraction , stridor Cardiovascular exam: PRESENT: RRR, +S1, +S2 Pulses: PRESENT: normal radial pulses GI/Abdominal exam: PRESENT: diminished bowel sounds, soft Extremities exam: PRESENT: +1 edema. ABSENT: calf tenderness, clubbing, joint swelling Musculoskeletal exam: ABSENT: deformity, dislocation Neurological exam: PRESENT: awake, oriented to person, oriented to place, oriented to time, oriented to situation Psychiatric exam: PRESENT: normal mood Skin exam: PRESENT: dry, warm Results Laboratory Results: 06/20/17 04:12 06/21/17 04:23 06/20/17 04:12 NT-Pro-B Natriuret Pep 243 Impressions: Chest/Abdomen CTA 06/19/17 11:55 IMPRESSION: No pulmonary emboli. Extensive left hilar mass causing atelectasis of the left upper lobe. Enlarged from the previous CT scan. Deviation and compression of the left main pulmonary artery by this extensive mass but there are no emboli. Assessment & Plan - Diagnosis (1) Lung cancer Qualifiers: Laterality: left Lung location: unspecified part of lung Qualified Code(s ): C34.92 - Malignant neoplasm of unspecified part of left bronchus or lung Is this a current diagnosis for this admission?: Yes Plan: DR Kyrie Bernard [phone] Oncology i haved called left my name he should call back to [place] with in 24-48 hrs (2) Acute and chronic respiratory failure ([id number]) Qualifiers: Respiratory failure complication: hypoxia Qualified Code(s): J96.21 - Acute and chronic respiratory failure with hypoxia Is this a current diagnosis for this admission?: Yes Plan: continue current rx (3) COPD (chronic obstructive pulmonary disease) with emphysema Qualifiers: Emphysema type: unspecified Qualified Code(s): J43.9 - Emphysema, unspecified Is this a current diagnosis for this admission?: Yes Plan: consider d/c singular Generic Name Dose Route Start Last Admin Trade Name Freq PRN Reason Stop Dose Admin Roflumilast 500 mcg 06/21/17 05:00 Daliresp 500 Mcg Tablet PO 07/21/17 04:59 DAILY@0500 [facility] Fluticasone Propionate 2 spray 06/20/17 17:00 Flonase Nasal [place] 50 Mcg/[place] 16 Gm NASL 07/20/17 16:59 Q12@0500,1700 [facility] Theophylline 300 mg 06/21/17 05:00 Hans-Dur 300 Mg Tab.Sr PO 07/21/17 04:59 DAILY@0500 [facility] Budesonide/Formoterol Fumarate 2 puff 06/20/17 17:00 Symbicort Hfa 160-4.5 Mcg Inhaler 6 Gm IH 07/20/17 16:59 Q12@0500,1700 [facility] Methylprednisolone Sodium Succinate 40 mg 06/19/17 22:00 06/20/17 14:24 Solu-Medrol Inj/Pf 40 Mg/1 Ml Sdv IV 07/19/17 21:59 40 mg Q8 KATE Benzonatate 200 mg 06/19/17 17:43 Tessalon Perles 100 Mg Capsule PO 07/19/17 17:42 Q8HP PRN FOR COUGH Levalbuterol HCl 0.63 mg 06/19/17 17:19 Xopenex Neb 0.63 Mg/3 Ml Ampul NEB 07/19/17 17:18 RTQ2HP PRN SHORTNESS OF BREATH Levalbuterol HCl 1.25 mg 06/20/17 00:00 06/20/17 12:08 Xopenex Neb 1.25 Mg/3 Ml Ampul NEB 07/20/17 00:00 1.25 mg RTQ4 KATE Montelukast Sodium 10 mg 06/19/17 22:00 06/19/17 22:39 Singulair 10 Mg Tablet PO 07/19/17 21:59 Not Given QHS KATE
--- NOTE | 2017-06-23 13:17 | PDOC PROGRESS REPORT ---
Subjective Progress Note for:: 06/21/17 Subjective:: bothered by being admitted Reason For Visit: WORSENING DYSPNEA LUNG CANCER Physical Exam Vital Signs: Temp Pulse Resp BP Pulse Ox 98.3 F 123 H 22 H 103/69 94 06/21/17 07:23 06/21/17 07:48 06/21/17 07:48 06/21/17 07:23 06/21/17 07:48 Pulse Oximeter Continuous Start: 06/20/17 12: 07 Freq: RTQ4 Status: Active Document 06/21/17 07:48 TPO (Rec: 06/21/17 08:06 TPO [email or web address]) Pulse Oximetry Assessment Oxygen Saturation (92-100) 94 Oxygen Flow Rate (L/min) 4 Oxygen Delivery Method Nasal Cannula Fraction of Inspired Oxygen (FIO2) 36 Equipment Usage Equipment in Use Continuous SpO2 Machine # [id number] Intake & Output 06/20/17 06/21/17 06/22/17 06:59 06:59 06:59 Intake Total 221 2107 Output Total 0 Balance 221 2107 Weight 96.1 kg 98.6 kg General appearance: PRESENT: cooperative, disheveled, mild distress, obese Head exam: PRESENT: atraumatic, normocephalic Eye exam: PRESENT: conjunctiva pale, EOMI. ABSENT: nystagmus, periorbital swelling, scleral icterus Mouth exam: PRESENT: moist, neck supple, tongue midline Neck exam: ABSENT: carotid bruit, JVD, lymphadenopathy, thyromegaly, tracheal deviation, tracheostomy Respiratory exam: PRESENT: decreased breath sounds, prolonged expiratory phas, rales, rhonchi, symmetrical, tachypnea, unlabored, wheezes. ABSENT: retraction , stridor Cardiovascular exam: PRESENT: RRR, +S1, +S2, tachycardia Pulses: PRESENT: normal radial pulses GI/Abdominal exam: PRESENT: diminished bowel sounds, soft Extremities exam: ABSENT: calf tenderness, clubbing, joint swelling Musculoskeletal exam: ABSENT: deformity, dislocation Neurological exam: PRESENT: oriented to person, oriented to place, oriented to time, oriented to situation Psychiatric exam: PRESENT: flat affect Skin exam: PRESENT: dry, warm Results Laboratory Results: 06/20/17 04:12 06/21/17 04:23 06/21/17 06/21/17 04:23 04:23 Sodium 142.9 Potassium 4.4 Chloride 101 Carbon Dioxide 32 H Anion Gap 10 BUN 19 Creatinine 0.74 Est GFR ( Amer) > 60 Est GFR (Non-Af Amer) > 60 Glucose 140 H Calcium 10.1 TSH 0.05 L Free T4 1.47 06/20/17 04:12 NT-Pro-B Natriuret Pep 243 Impressions: Chest/Abdomen CTA 06/19/17 11:55 IMPRESSION: No pulmonary emboli. Extensive left hilar mass causing atelectasis of the left upper lobe. Enlarged from the previous CT scan. Deviation and compression of the left main pulmonary artery by this extensive mass but there are no emboli. Assessment & Plan - Diagnosis (1) Lung cancer Qualifiers: Laterality: left Lung location: unspecified part of lung Qualified Code(s ): C34.92 - Malignant neoplasm of unspecified part of left bronchus or lung Is this a current diagnosis for this admission?: Yes Plan: DR Kyrie Bernard [phone] Oncology i haved called left my name he should call back to [place] with in 24-48 hrs (2) Acute and chronic respiratory failure ([id number]) Qualifiers: Respiratory failure complication: hypoxia Qualified Code(s): J96.21 - Acute and chronic respiratory failure with hypoxia Is this a current diagnosis for this admission?: Yes Plan: continue current rx (3) COPD (chronic obstructive pulmonary disease) with emphysema Qualifiers: Emphysema type: unspecified Qualified Code(s): J43.9 - Emphysema, unspecified Is this a current diagnosis for this admission?: Yes Plan: consider d/c singular Generic Name Dose Route Start Last Admin Trade Name David PRN Reason Stop Dose Admin Roflumilast 500 mcg 06/21/17 05:00 Daliresp 500 Mcg Tablet PO 07/21/17 04:59 DAILY@0500 [facility]ATE Fluticasone Propionate 2 spray 06/20/17 17:00 Flonase Nasal [place] 50 Mcg/[place] 16 Gm NASL 07/20/17 16:59 Q12@0500,1700 KATE Theophylline 300 mg 06/21/17 05:00 Hans-Dur 300 Mg Tab.Sr PO 07/21/17 04:59 DAILY@0500 [facility] Budesonide/Formoterol Fumarate 2 puff 06/20/17 17:00 Symbicort Hfa 160-4.5 Mcg Inhaler 6 Gm IH 07/20/17 16:59 Q12@0500,1700 [facility] Methylprednisolone Sodium Succinate 40 mg 06/19/17 22:00 06/20/17 14:24 Solu-Medrol Inj/Pf 40 Mg/1 Ml Sdv IV 07/19/17 21:59 40 mg Q8 KATE Benzonatate 200 mg 06/19/17 17:43 Tessalon Perles 100 Mg Capsule PO 07/19/17 17:42 Q8HP PRN FOR COUGH Levalbuterol HCl 0.63 mg 06/19/17 17:19 Xopenex Neb 0.63 Mg/3 Ml Ampul NEB 07/19/17 17:18 RTQ2HP PRN SHORTNESS OF BREATH Levalbuterol HCl 1.25 mg 06/20/17 00:00 06/20/17 12:08 Xopenex Neb 1.25 Mg/3 Ml Ampul NEB 07/20/17 00:00 1.25 mg RTQ4 [facility] Montelukast Sodium 10 mg 06/19/17 22:00 06/19/17 22:39 Singulair 10 Mg Tablet PO 07/19/17 21:59 Not Given QHS KATE
--- NOTE | 2017-06-23 16:34 | PDOC PROGRESS REPORT ---
Subjective Progress Note for:: 06/23/17 Subjective:: Ms. Khan is a 62-year-old with a history of lung cancer who presented to the hospital with worsening shortness of breath with severe dyspnea on exertion. She has a chronic cough which has not changed. She has been taking chemo and radiation Tuesday - Fridays. Her last treatment was June 16. CT of the chest with contrast showed extensive hilar mass causing atelectasis of the left upper lobe which looks larger compared to prior CT scan; Deviation and compression of the left main pulmonary artery by this extensive mass seen; No pulmonary emboli seen. Her financial compliance examiner, , was consulted. She was treated with IV steroids along with inhaled bronchodilators. 4/3 Tearful and anxious about her diagnosis and discussions about code status. 4/4 SOB with exertion. 4/5 No change. Still short of breath. But amazingly, she talks NON-STOP. Reason For Visit: WORSENING DYSPNEA LUNG CANCER Physical Exam Vital Signs: Temp Pulse Resp BP Pulse Ox 98.0 F 119 H 16 124/77 91 L 06/23/17 11:50 06/23/17 14:00 06/23/17 12:08 06/23/17 11:50 06/23/17 12:08 Pulse Oximeter Continuous Start: 06/20/17 12: 07 Freq: RTQ4 Status: Active Document 06/23/17 12:08 [facility] (Rec: 06/23/17 12:09 J [email or web address]) Pulse Oximetry Assessment Oxygen Saturation (92-100) 91 Oxygen Flow Rate (L/min) 4 Oxygen Delivery Method Nasal Cannula Fraction of Inspired Oxygen (FIO2) 36 Equipment Usage Equipment in Use Continuous SpO2 Machine # 13 Intake & Output 06/22/17 06/23/17 06/24/17 06:59 06:59 06:59 Intake Total 1680 2156 0 Balance 1680 2156 0 Weight 98.4 kg 98.2 kg General appearance: PRESENT: no acute distress, obese Head exam: PRESENT: atraumatic, normocephalic Eye exam: PRESENT: EOMI, PERRLA Neck exam: ABSENT: carotid bruit, JVD, lymphadenopathy, thyromegaly Respiratory exam: PRESENT: rhonchi, unlabored GI/Abdominal exam: PRESENT: normal bowel sounds, soft. ABSENT: distended, guarding, mass, organolmegaly, rebound, tenderness Musculoskeletal exam: PRESENT: ambulatory Neurological exam: PRESENT: alert, awake, oriented to person, oriented to place , oriented to time, oriented to situation, CN II-XII grossly intact. ABSENT: motor sensory deficit Psychiatric exam: PRESENT: appropriate affect, normal mood. ABSENT: homicidal ideation, suicidal ideation Skin exam: PRESENT: dry, intact, warm. ABSENT: cyanosis, rash Results Laboratory Results: 06/20/17 04:12 06/21/17 04:23 06/20/17 04:12 NT-Pro-B Natriuret Pep 243 Impressions: Chest/Abdomen CTA 06/19/17 11:55 IMPRESSION: No pulmonary emboli. Extensive left hilar mass causing atelectasis of the left upper lobe. Enlarged from the previous CT scan. Deviation and compression of the left main pulmonary artery by this extensive mass but there are no emboli. Assessment & Plan - Diagnosis (1) Acute and chronic respiratory failure ([id number]-[id number]) Qualifiers: Respiratory failure complication: hypoxia Qualified Code(s): J96.21 - Acute and chronic respiratory failure with hypoxia Is this a current diagnosis for this admission?: Yes Plan: She has shown some improvement over the course of her hospital stay. But, her HR remains 100 - 120's and O2 sat remains 90-91% on 4L. Continue oxygen, steroids, and bronchodilators. (2) COPD (chronic obstructive pulmonary disease) with emphysema Qualifiers: Emphysema type: unspecified Qualified Code(s): J43.9 - Emphysema, unspecified Is this a current diagnosis for this admission?: Yes Plan: See above (3) Lung cancer Qualifiers: Laterality: left Lung location: unspecified part of lung Qualified Code(s ): C34.92 - Malignant neoplasm of unspecified part of left bronchus or lung Is this a current diagnosis for this admission?: Yes (4) Chronic diastolic (congestive) heart failure Is this a current diagnosis for this admission?: Yes Plan: Stable. (5) Tachycardia Is this a current diagnosis for this admission?: Yes Plan: Likely due to chronic exertion and hypoxemia. Hopefully, as her breathing improves so will her heart rate. - Time Time Spent with patient: 15-24 minutes Medications reviewed and adjusted accordingly: Yes Anticipated discharge: Home Disposition: Home - Inpatient Certification Based on my medical assessment, after consideration of the patient's comorbidities, presenting symptoms, or acuity I expect that the services needed warrant INPATIENT care.: Yes I certify that my determination is in accordance with my understanding of Medicare's requirements for reasonable and necessary INPATIENT services [42 CFR 412.3e].: Yes Medical Necessity: Need Close Monitoring Due to Risk of Patient Decompensation
[2017-06-23] MEDS: AMITRIPTYLINE HCL 10 MG TABLET PO SCH (17:16)
[2017-06-23] MEDS: MONTELUKAST SODIUM 10 MG TABLET PO SCH (17:18)
[2017-06-23] MEDS ORDERED: GUAIFENESIN 600 MG TABLET.SA PO ONE (22:00)
[2017-06-24] MEDS: LEVALBUTEROL HCL NEB 1.25 MG/3 ML AMPUL NEB SCH ×6 (04:02→19:40)
[2017-06-24] MEDS: BUDESONIDE/FORMOTEROL 160-4.5 MCG 60 PUFF/6 GM MDI IH SCH ×2 (05:08→17:03)
[2017-06-24] MEDS: METHYLPREDNISOLONE INJ 40 MG/1 ML SDV IV SCH ×3 (05:08→21:57)
[2017-06-24] MEDS: FLUTICASONE NASAL SPRAY 50 MCG/SPRY 120 SPRAY/16 GM NASL SCH ×2 (05:08→17:04)
[2017-06-24] MEDS: ASPIRIN 325 MG TABLET PO SCH ×2 (05:09→17:00)
[2017-06-24] MEDS: GUAIFENESIN 600 MG TABLET.SA PO SCH ×2 (05:09→16:59)
[2017-06-24] MEDS: FUROSEMIDE 20 MG TABLET PO SCH (05:10)
[2017-06-24] MEDS: FOLIC ACID 1 MG TABLET PO SCH (05:10)
[2017-06-24] MEDS: DILTIAZEM HCL 120 MG CAP.SR.24H PO SCH ×2 (05:10→17:02)
[2017-06-24] MEDS: BUSPIRONE HCL 10 MG TABLET PO SCH ×2 (05:10→17:02)
[2017-06-24] MEDS: EZETIMIBE 10 MG TABLET PO SCH (05:10)
[2017-06-24] MEDS: DOCUSATE SODIUM 100 MG CAPSULE PO SCH ×2 (05:10→17:01)
[2017-06-24] MEDS: LANSOPRAZOLE 30 MG TAB.RAP.DR PO SCH ×2 (05:11→17:03)
[2017-06-24] MEDS: ONDANSETRON HCL 8 MG TABLET PO SCH (05:11)
[2017-06-24] MEDS: ROFLUMILAST 500 MCG TABLET PO SCH (05:11)
[2017-06-24] MEDS: THEOPHYLLINE ANHYDROUS 300 MG TAB.SR.12H PO SCH ×2 (05:11→17:00)
[2017-06-24] MEDS: MIRABEGRON 50 MG PO SCH (05:15)
[2017-06-24] MEDS: CYCLOPHOSPHAMIDE 50 MG PO PRN (06:45)
[2017-06-24] MEDS: ACETYLCYSTEINE 20% SOLN 800 MG/4 ML VIAL.NEB NEB SCH ×2 (08:03→19:40)
[2017-06-24] MEDS: ENOXAPARIN SODIUM INJ 40 MG/0.4 ML DISP.SYRIN SUBCUT SCH (09:05)
[2017-06-24] MEDS: OXYCODONE-ACETAMINOPHEN 5-325 MG TABLET PO PRN (13:07)
[2017-06-24] MEDS: AMITRIPTYLINE HCL 10 MG TABLET PO SCH (17:01)
[2017-06-24] MEDS: MONTELUKAST SODIUM 10 MG TABLET PO SCH (17:02)
--- NOTE | 2017-06-24 17:37 | PDOC PROGRESS REPORT ---
Subjective Progress Note for:: 06/24/17 Subjective:: Ms. Khan is a 62-year-old with a history of lung cancer who presented to the hospital with worsening shortness of breath with severe dyspnea on exertion. She has a chronic cough which has not changed. She has been taking chemo and radiation Tuesday - Fridays. Her last treatment was June 16. CT of the chest with contrast showed extensive hilar mass causing atelectasis of the left upper lobe which looks larger compared to prior CT scan; Deviation and compression of the left main pulmonary artery by this extensive mass seen; No pulmonary emboli seen. Her manager winter, , was consulted. She was treated with IV steroids along with inhaled bronchodilators. 4/3 Tearful and anxious about her diagnosis and discussions about code status. 4/4 SOB with exertion. 4/5 No change. Still short of breath. But amazingly, she talks NON-STOP. 4/6 No new problems. She is still short of breath. Reason For Visit: WORSENING DYSPNEA LUNG CANCER Physical Exam Vital Signs: Temp Pulse Resp BP Pulse Ox 98.2 F 117 H 20 119/75 93 06/24/17 16:22 06/24/17 16:40 06/24/17 16:40 06/24/17 16:22 06/24/17 16:40 Pulse Oximeter Continuous Start: 06/20/17 12: 07 Freq: RTQ4 Status: Active Document 06/24/17 16:40 [facility] (Rec: 06/24/17 17:30 [facility] [email or web address]) Pulse Oximetry Assessment Oxygen Saturation (92-100) 93 Oxygen Flow Rate (L/min) 4 Oxygen Delivery Method Nasal Cannula Fraction of Inspired Oxygen (FIO2) 36 Equipment Usage Equipment in Use Continuous SpO2 Machine # [id number] Intake & Output 06/23/17 06/24/17 06/25/17 06:59 06:59 06:59 Intake Total 2156 631 139 Balance 2156 631 139 Weight 98.2 kg 98.1 kg General appearance: PRESENT: no acute distress, obese Respiratory exam: PRESENT: rhonchi, unlabored Cardiovascular exam: PRESENT: RRR. ABSENT: diastolic murmur, rubs, systolic murmur Neurological exam: PRESENT: alert, awake, oriented to person, oriented to place , oriented to time, oriented to situation, CN II-XII grossly intact. ABSENT: motor sensory deficit Psychiatric exam: PRESENT: appropriate affect, normal mood. ABSENT: homicidal ideation, suicidal ideation Results Laboratory Results: 06/20/17 04:12 06/21/17 04:23 06/20/17 04:12 NT-Pro-B Natriuret Pep 243 Impressions: Chest/Abdomen CTA 06/19/17 11:55 IMPRESSION: No pulmonary emboli. Extensive left hilar mass causing atelectasis of the left upper lobe. Enlarged from the previous CT scan. Deviation and compression of the left main pulmonary artery by this extensive mass but there are no emboli. Assessment & Plan - Diagnosis (1) Acute and chronic respiratory failure (jmonx-hd-pcqiyme) Qualifiers: Respiratory failure complication: hypoxia Qualified Code(s): J96.21 - Acute and chronic respiratory failure with hypoxia Is this a current diagnosis for this admission?: Yes Plan: She has shown some improvement over the course of her hospital stay. But, her HR remains 100 - 120's and O2 sat remains 90-91% on 4L. Continue oxygen, steroids, and bronchodilators. (2) COPD (chronic obstructive pulmonary disease) with emphysema Qualifiers: Emphysema type: unspecified Qualified Code(s): J43.9 - Emphysema, unspecified Is this a current diagnosis for this admission?: Yes Plan: See above (3) Lung cancer Qualifiers: Laterality: left Lung location: unspecified part of lung Qualified Code(s ): C34.92 - Malignant neoplasm of unspecified part of left bronchus or lung Is this a current diagnosis for this admission?: Yes Plan: Follow-up with her oncologist Dr. Kyrie Bernard in [place] (4) Chronic diastolic (congestive) heart failure Is this a current diagnosis for this admission?: Yes Plan: Stable. (5) Tachycardia Is this a current diagnosis for this admission?: Yes Plan: Likely due to chronic exertion and hypoxemia. Hopefully, as her breathing improves so will her heart rate. - Time Time Spent with patient: 15-24 minutes Medications reviewed and adjusted accordingly: Yes Anticipated discharge: Home - Inpatient Certification Based on my medical assessment, after consideration of the patient's comorbidities, presenting symptoms, or acuity I expect that the services needed warrant INPATIENT care.: Yes I certify that my determination is in accordance with my understanding of Medicare's requirements for reasonable and necessary INPATIENT services [42 CFR 412.3e].: Yes Medical Necessity: Need for Nebulizer Therapy and Monitoring of Response
[2017-06-25] MEDS: LEVALBUTEROL HCL NEB 1.25 MG/3 ML AMPUL NEB SCH ×6 (00:01→19:33)
[2017-06-25] MEDS: BUDESONIDE/FORMOTEROL 160-4.5 MCG 60 PUFF/6 GM MDI IH SCH ×2 (05:44→17:32)
[2017-06-25] MEDS: FLUTICASONE NASAL SPRAY 50 MCG/SPRY 120 SPRAY/16 GM NASL SCH ×2 (05:44→17:31)
[2017-06-25] MEDS: EZETIMIBE 10 MG TABLET PO SCH (05:45)
[2017-06-25] MEDS: FUROSEMIDE 20 MG TABLET PO SCH (05:45)
[2017-06-25] MEDS: GUAIFENESIN 600 MG TABLET.SA PO SCH ×2 (05:45→17:34)
[2017-06-25] MEDS: ASPIRIN 325 MG TABLET PO SCH ×2 (05:45→17:33)
[2017-06-25] MEDS: LANSOPRAZOLE 30 MG TAB.RAP.DR PO SCH ×2 (05:45→17:33)
[2017-06-25] MEDS: DILTIAZEM HCL 120 MG CAP.SR.24H PO SCH ×2 (05:45→17:33)
[2017-06-25] MEDS: ROFLUMILAST 500 MCG TABLET PO SCH (05:45)
[2017-06-25] MEDS: BUSPIRONE HCL 10 MG TABLET PO SCH ×2 (05:45→17:32)
[2017-06-25] MEDS: FOLIC ACID 1 MG TABLET PO SCH (05:45)
[2017-06-25] MEDS: THEOPHYLLINE ANHYDROUS 300 MG TAB.SR.12H PO SCH ×2 (05:45→17:32)
[2017-06-25] MEDS: MIRABEGRON 50 MG PO SCH (05:45)
[2017-06-25] MEDS: DOCUSATE SODIUM 100 MG CAPSULE PO SCH ×2 (05:46→17:33)
[2017-06-25] MEDS: METHYLPREDNISOLONE INJ 40 MG/1 ML SDV IV SCH ×3 (05:46→21:04)
[2017-06-25] MEDS: ACETYLCYSTEINE 20% SOLN 800 MG/4 ML VIAL.NEB NEB SCH ×2 (07:48→19:32)
[2017-06-25] MEDS: ENOXAPARIN SODIUM INJ 40 MG/0.4 ML DISP.SYRIN SUBCUT SCH (09:02)
--- NOTE | 2017-06-25 16:41 | PDOC PROGRESS REPORT ---
Subjective Progress Note for:: 06/25/17 Subjective:: Ms. Khan is a 62-year-old with a history of lung cancer who presented to the hospital with worsening shortness of breath with severe dyspnea on exertion. She has a chronic cough which has not changed. She has been taking chemo and radiation Tuesday - Fridays. Her last treatment was June 16. CT of the chest with contrast showed extensive hilar mass causing atelectasis of the left upper lobe which looks larger compared to prior CT scan; Deviation and compression of the left main pulmonary artery by this extensive mass seen; No pulmonary emboli seen. Her director of social services, , was consulted. She was treated with IV steroids along with inhaled bronchodilators. 4/3 Tearful and anxious about her diagnosis and discussions about code status. 4/4 SOB with exertion. 4/5 No change. Still short of breath. But amazingly, she talks NON-STOP. 4/6 No new problems. She is still short of breath. 4/7 no new problems. she remains dyspneic/hypoxic/tachycardic Reason For Visit: WORSENING DYSPNEA LUNG CANCER Physical Exam Vital Signs: Temp Pulse Resp BP Pulse Ox 98.4 F 101 H 20 129/74 H 93 06/25/17 10:58 06/25/17 15:46 06/25/17 15:46 06/25/17 10:58 06/25/17 15:46 Pulse Oximeter Continuous Start: 06/20/17 12: 07 Freq: RTQ4 Status: Active Document 06/25/17 15:46 HCR (Rec: 06/25/17 15:55 HCR [email or web address]) Pulse Oximetry Assessment Oxygen Saturation (92-100) 93 Oxygen Flow Rate (L/min) 3 Oxygen Delivery Method Nasal Cannula Equipment Usage Equipment in Use Continuous SpO2 Machine # 13 Intake & Output 06/24/17 06/25/17 06/26/17 06:59 06:59 06:59 Intake Total 631 1256 661 Balance 631 1256 661 Weight 98.1 kg 100.8 kg General appearance: PRESENT: no acute distress, obese Respiratory exam: PRESENT: crackles Cardiovascular exam: PRESENT: tachycardia GI/Abdominal exam: PRESENT: normal bowel sounds, soft. ABSENT: distended, guarding, mass, organolmegaly, rebound, tenderness Neurological exam: PRESENT: alert, awake, oriented to person, oriented to place , oriented to time, oriented to situation, CN II-XII grossly intact. ABSENT: motor sensory deficit Psychiatric exam: PRESENT: appropriate affect, normal mood. ABSENT: homicidal ideation, suicidal ideation Skin exam: PRESENT: dry, intact, warm. ABSENT: cyanosis, rash Results Laboratory Results: 06/20/17 04:12 06/21/17 04:23 06/20/17 04:12 NT-Pro-B Natriuret Pep 243 Impressions: Chest/Abdomen CTA 06/19/17 11:55 IMPRESSION: No pulmonary emboli. Extensive left hilar mass causing atelectasis of the left upper lobe. Enlarged from the previous CT scan. Deviation and compression of the left main pulmonary artery by this extensive mass but there are no emboli. Assessment & Plan - Diagnosis (1) Acute and chronic respiratory failure ([id number]-yx-cvlydhv) Qualifiers: Respiratory failure complication: hypoxia Qualified Code(s): J96.21 - Acute and chronic respiratory failure with hypoxia Is this a current diagnosis for this admission?: Yes Plan: She has shown some improvement over the course of her hospital stay. But, her HR remains 100 - 120's and O2 sat remains 90-91% on 4L. Continue oxygen, steroids, and bronchodilators. (2) COPD (chronic obstructive pulmonary disease) with emphysema Qualifiers: Emphysema type: unspecified Qualified Code(s): J43.9 - Emphysema, unspecified Is this a current diagnosis for this admission?: Yes Plan: See above (3) Lung cancer Qualifiers: Laterality: left Lung location: unspecified part of lung Qualified Code(s ): C34.92 - Malignant neoplasm of unspecified part of left bronchus or lung Is this a current diagnosis for this admission?: Yes Plan: Follow-up with her oncologist Dr. Kyrie Bernard in [place] (4) Chronic diastolic (congestive) heart failure Is this a current diagnosis for this admission?: Yes Plan: Stable. (5) Tachycardia Is this a current diagnosis for this admission?: Yes Plan: Likely due to chronic exertion and hypoxemia. Hopefully, as her breathing improves so will her heart rate. - Time Time Spent with patient: 15-24 minutes Medications reviewed and adjusted accordingly: Yes Anticipated discharge: Home - Inpatient Certification Based on my medical assessment, after consideration of the patient's comorbidities, presenting symptoms, or acuity I expect that the services needed warrant INPATIENT care.: Yes I certify that my determination is in accordance with my understanding of Medicare's requirements for reasonable and necessary INPATIENT services [42 CFR 412.3e].: Yes Medical Necessity: Need Close Monitoring Due to Risk of Patient Decompensation
[2017-06-25] MEDS: MONTELUKAST SODIUM 10 MG TABLET PO SCH (17:33)
[2017-06-25] MEDS: AMITRIPTYLINE HCL 10 MG TABLET PO SCH (17:34)
[2017-06-26] MEDS: LEVALBUTEROL HCL NEB 1.25 MG/3 ML AMPUL NEB SCH ×6 (00:40→19:39)
[2017-06-26] MEDS: THEOPHYLLINE ANHYDROUS 300 MG TAB.SR.12H PO SCH ×2 (05:01→16:53)
[2017-06-26] MEDS: GUAIFENESIN 600 MG TABLET.SA PO SCH ×2 (05:02→16:52)
[2017-06-26] MEDS: FOLIC ACID 1 MG TABLET PO SCH (05:02)
[2017-06-26] MEDS: ROFLUMILAST 500 MCG TABLET PO SCH (05:02)
[2017-06-26] MEDS: ASPIRIN 325 MG TABLET PO SCH ×2 (05:02→16:53)
[2017-06-26] MEDS: DOCUSATE SODIUM 100 MG CAPSULE PO SCH ×2 (05:02→16:52)
[2017-06-26] MEDS: FUROSEMIDE 20 MG TABLET PO SCH (05:02)
[2017-06-26] MEDS: LANSOPRAZOLE 30 MG TAB.RAP.DR PO SCH ×2 (05:02→16:54)
[2017-06-26] MEDS: EZETIMIBE 10 MG TABLET PO SCH (05:02)
[2017-06-26] MEDS: BUSPIRONE HCL 10 MG TABLET PO SCH ×2 (05:02→16:53)
[2017-06-26] MEDS: DILTIAZEM HCL 120 MG CAP.SR.24H PO SCH ×2 (05:02→16:53)
[2017-06-26] MEDS: BUDESONIDE/FORMOTEROL 160-4.5 MCG 60 PUFF/6 GM MDI IH SCH ×2 (05:02→16:55)
[2017-06-26] MEDS: MIRABEGRON 50 MG PO SCH (05:03)
[2017-06-26] MEDS: METHYLPREDNISOLONE INJ 40 MG/1 ML SDV IV SCH ×3 (05:03→21:17)
[2017-06-26] MEDS: FLUTICASONE NASAL SPRAY 50 MCG/SPRY 120 SPRAY/16 GM NASL SCH ×2 (05:03→16:54)
[2017-06-26] MEDS: ACETYLCYSTEINE 20% SOLN 800 MG/4 ML VIAL.NEB NEB SCH ×2 (07:49→19:39)
--- NOTE | 2017-06-26 09:58 | PDOC PROGRESS REPORT ---
Subjective Progress Note for:: 06/26/17 Subjective:: Ms. Khan is a 62-year-old with a history of lung cancer who presented to the hospital with worsening shortness of breath with severe dyspnea on exertion. She has a chronic cough which has not changed. She has been taking chemo and radiation Tuesday - Fridays. Her last treatment was June 16. CT of the chest with contrast showed extensive hilar mass causing atelectasis of the left upper lobe which looks larger compared to prior CT scan; Deviation and compression of the left main pulmonary artery by this extensive mass seen; No pulmonary emboli seen. Her discharge door operator, , was consulted. She was treated with IV steroids along with inhaled bronchodilators. 4/3 Tearful and anxious about her diagnosis and discussions about code status. 4/4 SOB with exertion. 4/5 No change. Still short of breath. But amazingly, she talks NON-STOP. 4/6 No new problems. She is still short of breath. 4/7 no new problems. she remains dyspneic/hypoxic/tachycardic 06/26 No new concerns. Reason For Visit: WORSENING DYSPNEA LUNG CANCER Physical Exam Vital Signs: Temp Pulse Resp BP Pulse Ox 98.1 F 121 H 18 122/67 93 06/26/17 08:40 06/26/17 08:40 06/26/17 08:40 06/26/17 08:40 06/26/17 08:40 Pulse Oximeter Continuous Start: 06/20/17 12: 07 Freq: RTQ4 Status: Active Document 06/26/17 04:44 [facility]AL (Rec: 06/26/17 05:20 EAL [email or web address]) Pulse Oximetry Assessment Oxygen Saturation (92-100) 91 Oxygen Flow Rate (L/min) 4 Oxygen Delivery Method Nasal Cannula Fraction of Inspired Oxygen (FIO2) 36 Equipment Usage Equipment in Use Continuous SpO2 Machine # 13 Intake & Output 06/25/17 06/26/17 06/27/17 06:59 06:59 06:59 Intake Total 1256 1982 Balance 1256 1982 Weight 100.8 kg 100.2 kg General appearance: PRESENT: mild distress, obese Head exam: PRESENT: atraumatic, normocephalic Eye exam: PRESENT: EOMI, PERRLA Respiratory exam: PRESENT: rhonchi, symmetrical, unlabored Cardiovascular exam: PRESENT: tachycardia GI/Abdominal exam: PRESENT: normal bowel sounds, soft. ABSENT: distended, guarding, mass, organolmegaly, rebound, tenderness Musculoskeletal exam: PRESENT: ambulatory Neurological exam: PRESENT: alert, awake, oriented to person, oriented to place , oriented to time, oriented to situation, CN II-XII grossly intact. ABSENT: motor sensory deficit Psychiatric exam: PRESENT: appropriate affect, normal mood. ABSENT: homicidal ideation, suicidal ideation Results Laboratory Results: 06/20/17 04:12 06/21/17 04:23 06/20/17 04:12 NT-Pro-B Natriuret Pep 243 Impressions: Chest/Abdomen CTA 06/19/17 11:55 IMPRESSION: No pulmonary emboli. Extensive left hilar mass causing atelectasis of the left upper lobe. Enlarged from the previous CT scan. Deviation and compression of the left main pulmonary artery by this extensive mass but there are no emboli. Assessment & Plan - Diagnosis (1) Acute and chronic respiratory failure (kfcap-zj-insxsaw) Qualifiers: Respiratory failure complication: hypoxia Qualified Code(s): J96.21 - Acute and chronic respiratory failure with hypoxia Is this a current diagnosis for this admission?: Yes Plan: She has shown some improvement over the course of her hospital stay. But, her HR remains 100 - 120's and O2 sat remains 90-91% on 4L. Continue oxygen, steroids, and bronchodilators. (2) COPD (chronic obstructive pulmonary disease) with emphysema Qualifiers: Emphysema type: unspecified Qualified Code(s): J43.9 - Emphysema, unspecified Is this a current diagnosis for this admission?: Yes Plan: See above (3) Lung cancer Qualifiers: Laterality: left Lung location: unspecified part of lung Qualified Code(s ): C34.92 - Malignant neoplasm of unspecified part of left bronchus or lung Is this a current diagnosis for this admission?: Yes Plan: She will complete XRT. She has 4 additional treatments Tue - . Then follow- up with her oncologist Dr. Kyrie Bernard in [place]. (4) Chronic diastolic (congestive) heart failure Is this a current diagnosis for this admission?: Yes Plan: Stable. (5) Tachycardia Is this a current diagnosis for this admission?: Yes Plan: Likely due to mild exertion and hypoxemia. Hopefully, as her breathing improves so will her heart rate. - Time Time Spent with patient: 15-24 minutes Medications reviewed and adjusted accordingly: Yes Anticipated discharge: Home - Inpatient Certification Based on my medical assessment, after consideration of the patient's comorbidities, presenting symptoms, or acuity I expect that the services needed warrant INPATIENT care.: Yes I certify that my determination is in accordance with my understanding of Medicare's requirements for reasonable and necessary INPATIENT services [42 CFR 412.3e].: Yes Medical Necessity: Need Close Monitoring Due to Risk of Patient Decompensation
[2017-06-26] MEDS: ENOXAPARIN SODIUM INJ 40 MG/0.4 ML DISP.SYRIN SUBCUT SCH (10:41)
--- NOTE | 2017-06-26 16:32 | PDOC PROGRESS REPORT ---
Subjective Progress Note for:: 06/24/17 Subjective:: a little better Reason For Visit: WORSENING DYSPNEA LUNG CANCER Physical Exam Vital Signs: Temp Pulse Resp BP Pulse Ox 97.9 F 122 H 18 118/90 H 93 06/24/17 07:10 06/24/17 08:05 06/24/17 08:05 06/24/17 07:10 06/24/17 08:05 Pulse Oximeter Continuous Start: 06/20/17 12: 07 Freq: RTQ4 Status: Active Document 06/24/17 08:05 JDR (Rec: 06/24/17 08:38 JDR [email or web address]) Pulse Oximetry Assessment Oxygen Saturation (92-100) 93 Oxygen Flow Rate (L/min) 4 Oxygen Delivery Method Nasal Cannula Fraction of Inspired Oxygen (FIO2) 36 Equipment Usage Equipment in Use Continuous SpO2 Machine # 13 Intake & Output 06/23/17 06/24/17 06/25/17 06:59 06:59 06:59 Intake Total 2156 631 Balance 2156 631 Weight 98.2 kg 98.1 kg General appearance: PRESENT: no acute distress, cooperative, disheveled, obese Head exam: PRESENT: atraumatic, normocephalic Eye exam: PRESENT: conjunctiva pale, EOMI. ABSENT: nystagmus, periorbital swelling Mouth exam: PRESENT: dry mucosa, neck supple, tongue midline Neck exam: ABSENT: carotid bruit, JVD, lymphadenopathy, thyromegaly, tracheal deviation, tracheostomy Respiratory exam: PRESENT: decreased breath sounds, prolonged expiratory phas, rales, rhonchi, symmetrical, unlabored, wheezes. ABSENT: retraction, stridor Cardiovascular exam: PRESENT: RRR, +S1, +S2, tachycardia Pulses: PRESENT: normal radial pulses Extremities exam: ABSENT: clubbing, joint swelling Musculoskeletal exam: ABSENT: deformity, dislocation Neurological exam: PRESENT: awake, oriented to person, oriented to place, oriented to time, oriented to situation Skin exam: PRESENT: dry, warm Results Laboratory Results: 06/20/17 04:12 06/21/17 04:23 06/20/17 04:12 NT-Pro-B Natriuret Pep 243 Impressions: Chest/Abdomen CTA 06/19/17 11:55 IMPRESSION: No pulmonary emboli. Extensive left hilar mass causing atelectasis of the left upper lobe. Enlarged from the previous CT scan. Deviation and compression of the left main pulmonary artery by this extensive mass but there are no emboli. Assessment & Plan - Diagnosis (1) Lung cancer Qualifiers: Laterality: left Lung location: unspecified part of lung Qualified Code(s ): C34.92 - Malignant neoplasm of unspecified part of left bronchus or lung Is this a current diagnosis for this admission?: Yes Plan: DR Kyrie Bernard [phone] Oncology i haved called left my name he should call back to [place] with in 24-48 hrs (2) Acute and chronic respiratory failure ([id number]-sd-cxmumxg) Qualifiers: Respiratory failure complication: hypoxia Qualified Code(s): J96.21 - Acute and chronic respiratory failure with hypoxia Is this a current diagnosis for this admission?: Yes Plan: continue current rx (3) COPD (chronic obstructive pulmonary disease) with emphysema Qualifiers: Emphysema type: unspecified Qualified Code(s): J43.9 - Emphysema, unspecified Is this a current diagnosis for this admission?: Yes Plan: consider d/c singular Generic Name Dose Route Start Last Admin Trade Name Freq PRN Reason Stop Dose Admin Roflumilast 500 mcg 06/21/17 05:00 Daliresp 500 Mcg Tablet PO 07/21/17 04:59 DAILY@0500 [facility] Fluticasone Propionate 2 spray 06/20/17 17:00 Flonase Nasal [place] 50 Mcg/[place] 16 Gm NASL 07/20/17 16:59 Q12@0500,1700 [facility] Theophylline 300 mg 06/21/17 05:00 Hans-Dur 300 Mg Tab.Sr PO 07/21/17 04:59 DAILY@0500 [facility] Budesonide/Formoterol Fumarate 2 puff 06/20/17 17:00 Symbicort Hfa 160-4.5 Mcg Inhaler 6 Gm IH 07/20/17 16:59 Q12@0500,1700 [facility] Methylprednisolone Sodium Succinate 40 mg 06/19/17 22:00 06/20/17 14:24 Solu-Medrol Inj/Pf 40 Mg/1 Ml Sdv IV 07/19/17 21:59 40 mg Q8 KATE Benzonatate 200 mg 06/19/17 17:43 Tessalon Perles 100 Mg Capsule PO 07/19/17 17:42 Q8HP PRN FOR COUGH Levalbuterol HCl 0.63 mg 06/19/17 17:19 Xopenex Neb 0.63 Mg/3 Ml Ampul NEB 07/19/17 17:18 RTQ2HP PRN SHORTNESS OF BREATH Levalbuterol HCl 1.25 mg 06/20/17 00:00 06/20/17 12:08 Xopenex Neb 1.25 Mg/3 Ml Ampul NEB 07/20/17 00:00 1.25 mg RTQ4 KATE Montelukast Sodium 10 mg 06/19/17 22:00 06/19/17 22:39 Singulair 10 Mg Tablet PO 07/19/17 21:59 Not Given QHS KATE
[2017-06-26] MEDS: AMITRIPTYLINE HCL 10 MG TABLET PO SCH (16:53)
[2017-06-26] MEDS: MONTELUKAST SODIUM 10 MG TABLET PO SCH (16:54)
[2017-06-27] MEDS: LEVALBUTEROL HCL NEB 1.25 MG/3 ML AMPUL NEB SCH ×7 (00:38→23:37)
[2017-06-27] MEDS: ASPIRIN 325 MG TABLET PO SCH ×2 (05:17→17:49)
[2017-06-27] MEDS: THEOPHYLLINE ANHYDROUS 300 MG TAB.SR.12H PO SCH (05:17)
[2017-06-27] MEDS: BUDESONIDE/FORMOTEROL 160-4.5 MCG 60 PUFF/6 GM MDI IH SCH ×2 (05:18→17:50)
[2017-06-27] MEDS: LANSOPRAZOLE 30 MG TAB.RAP.DR PO SCH ×2 (05:18→17:49)
[2017-06-27] MEDS: EZETIMIBE 10 MG TABLET PO SCH (05:18)
[2017-06-27] MEDS: FLUTICASONE NASAL SPRAY 50 MCG/SPRY 120 SPRAY/16 GM NASL SCH ×2 (05:18→17:50)
[2017-06-27] MEDS: ROFLUMILAST 500 MCG TABLET PO SCH (05:18)
[2017-06-27] MEDS: DOCUSATE SODIUM 100 MG CAPSULE PO SCH ×2 (05:18→17:50)
[2017-06-27] MEDS: FOLIC ACID 1 MG TABLET PO SCH (05:18)
[2017-06-27] MEDS: ONDANSETRON HCL 8 MG TABLET PO SCH (05:18)
[2017-06-27] MEDS: METHYLPREDNISOLONE INJ 40 MG/1 ML SDV IV SCH ×3 (05:19→21:47)
[2017-06-27] MEDS: MIRABEGRON 50 MG PO SCH (05:19)
[2017-06-27] MEDS: BUSPIRONE HCL 10 MG TABLET PO SCH ×2 (05:19→17:49)
[2017-06-27] MEDS: DILTIAZEM HCL 120 MG CAP.SR.24H PO SCH ×2 (05:19→17:49)
[2017-06-27] MEDS: GUAIFENESIN 600 MG TABLET.SA PO SCH ×2 (05:19→17:50)
[2017-06-27] MEDS: FUROSEMIDE 20 MG TABLET PO SCH (05:19)
[2017-06-27] MEDS: CYCLOPHOSPHAMIDE 50 MG PO PRN (07:20)
[2017-06-27] MEDS: ACETYLCYSTEINE 20% SOLN 800 MG/4 ML VIAL.NEB NEB SCH ×2 (07:53→20:12)
[2017-06-27] MEDS ORDERED: TEMAZEPAM 15 MG CAPSULE PO PRN (09:03)
[2017-06-27] MEDS ORDERED: TEMAZEPAM 7.5 MG CAPSULE PO PRN (09:04)
[2017-06-27] MEDS: ENOXAPARIN SODIUM INJ 40 MG/0.4 ML DISP.SYRIN SUBCUT SCH (09:17)
--- NOTE | 2017-06-27 10:18 | RADIOLOGY REPORT (SQ) ---
EXAM DESCRIPTION: CHEST SINGLE VIEW COMPLETED DATE/TIME: 06/27/2017 9:41 am REASON FOR STUDY: SOB COMPARISON: CT chest dated 06/19/2017, chest x-ray dated 04/13/2017 EXAM PARAMETERS: NUMBER OF VIEWS: One view. TECHNIQUE: Single frontal radiographic view of the chest acquired. RADIATION DOSE: NA LIMITATIONS: None. FINDINGS: LUNGS AND PLEURA: Large mass overlying the left perihilar region is again noted. Minimal basilar atelectasis. No pneumothorax. No consolidation. MEDIASTINUM AND HILAR STRUCTURES: No masses. Contour normal. HEART AND VASCULAR STRUCTURES: Stable in appearance. BONES: No acute findings. HARDWARE: None in the chest. OTHER: No other significant finding. IMPRESSION: No interval change in the chest with large left perihilar mass. TECHNICAL DOCUMENTATION: JOB ID: [id number] [employer]- All Rights Reserved Reading location - IP/workstation name: [email or web address]
[2017-06-27 11:09] LABS: HEMATOCRIT 41.7 % (36.0-47.0); HEMOGLOBIN 13.8 g/dL (12.0-15.5); MEAN CORPUSCULAR HEMOGLOBIN 29.7 pg (27.0-33.4); MEAN CORPUSCULAR HGB CONC 33.2 g/dL (32.0-36.0); MEAN CORPUSCULAR VOLUME 90 fl (80-97); PLATELET COUNT 270 10^3/uL (150-450); RED BLOOD COUNT 4.66 10^6/uL (3.72-5.28); RED CELL DISTRIBUTION WIDTH 15.4 % (11.5-14.0); WHITE BLOOD COUNT 11.7 10^3/uL (4.0-10.5)
[2017-06-27 11:39] LABS: ANION GAP 6 (5-19); BLOOD UREA NITROGEN 28 mg/dL (7-20); CALCIUM 9.4 mg/dL (8.4-10.2); CARBON DIOXIDE 33 mmol/L (22-30); CHLORIDE 101 mmol/L (98-107); GLUCOSE 185 mg/dL (75-110); POTASSIUM 3.9 mmol/L (3.6-5.0); SODIUM 139.8 mmol/L (137-145)
[2017-06-27 12:00] LABS: ABSOLUTE LYMPHOCYTES# (MANUAL) 0.1 10^3/uL (0.5-4.7); ABSOLUTE MONOCYTES # (MANUAL) 0.8 10^3/uL (0.1-1.4); ABSOLUTE NEUTROPHILS# (MANUAL) 10.8 10^3/uL (1.7-8.2); BASOPHILS % (MANUAL) 0 % (0-2); EOSINOPHILS % (MANUAL) 0 % (0-6); LYMPHOCYTES % (MANUAL) 1 % (13-45); MONOCYTES % (MANUAL) 7 % (3-13); SEGMENTED NEUTROPHILS % (MAN) 92 % (42-78); TOTAL CELLS COUNTED 100
[2017-06-27 12:01] LABS: PLATELET COMMENT ADEQUATE; PLATELET LARGE PRESENT; RBC MORPHOLOGY COMMENT NORMO-CYTIC/CHROMIC
--- NOTE | 2017-06-27 17:25 | PDOC PROGRESS REPORT ---
Subjective Progress Note for:: 06/27/17 Subjective:: Ms. Khan is a 62-year-old with a history of lung cancer who presented to the hospital with worsening shortness of breath with severe dyspnea on exertion. She has a chronic cough which has not changed. She has been taking chemo and radiation Tuesday - Fridays. Her last treatment was June 16. CT of the chest with contrast showed extensive hilar mass causing atelectasis of the left upper lobe which looks larger compared to prior CT scan; Deviation and compression of the left main pulmonary artery by this extensive mass seen; No pulmonary emboli seen. Her radio sales account executive, , was consulted. She was treated with IV steroids along with inhaled bronchodilators. 06/27 Patient is undergoing radiation therapy She is complaining of constant moderate respiratory distress and persistent palpitations She is no fever no chills She still has persistent cough Sputum is not purulent Repeat chest x-ray performed today was unchanged showing a large left mediastinal mass Reason For Visit: WORSENING DYSPNEA LUNG CANCER Physical Exam Vital Signs: Temp Pulse Resp BP Pulse Ox 97.6 F 110 H 18 127/84 H 95 06/27/17 14:54 06/27/17 14:54 06/27/17 14:54 06/27/17 14:54 06/27/17 14:54 Pulse Oximeter Continuous Start: 06/20/17 12: 07 Freq: RTQ4 Status: Active Document 06/27/17 12:10 TPO (Rec: 06/27/17 12:31 TPO [email or web address]) Pulse Oximetry Assessment Oxygen Saturation (92-100) 94 Oxygen Flow Rate (L/min) 4 Oxygen Delivery Method Nasal Cannula Fraction of Inspired Oxygen (FIO2) 36 Equipment Usage Equipment in Use Continuous SpO2 Machine # 13 Intake & Output 06/26/17 06/27/17 06/28/17 00:59 00:59 00:59 Intake Total 1791 1733 972 Balance 1791 1733 972 Weight 100.8 kg 100.2 kg 98.6 kg General appearance: PRESENT: mild distress, other - Mild respiratory distress anxious Head exam: PRESENT: atraumatic, normocephalic Eye exam: PRESENT: conjunctiva pink, EOMI, PERRLA. ABSENT: scleral icterus Neck exam: ABSENT: carotid bruit, JVD, lymphadenopathy, thyromegaly Respiratory exam: PRESENT: decreased breath sounds, rhonchi, wheezes. ABSENT: accessory muscle use Cardiovascular exam: PRESENT: tachycardia. ABSENT: gallop, rubs Pulses: PRESENT: normal dorsalis pedis pul GI/Abdominal exam: PRESENT: normal bowel sounds, soft. ABSENT: distended, guarding, mass, organolmegaly, rebound, tenderness Extremities exam: PRESENT: full ROM. ABSENT: calf tenderness, clubbing, pedal edema Neurological exam: PRESENT: alert, awake, CN II-XII grossly intact Skin exam: PRESENT: dry, intact, warm. ABSENT: cyanosis, rash Results Laboratory Results: 06/27/17 10:57 06/27/17 10:57 06/27/17 06/27/17 10:57 10:57 WBC 11.7 H RBC 4.66 Hgb 13.8 Hct 41.7 MCV 90 MCH 29.7 MCHC 33.2 RDW 15.4 H Plt Count 270 Seg Neutrophils % Not Reportable Lymphocytes % Not Reportable Monocytes % Not Reportable Eosinophils % Not Reportable Basophils % Not Reportable Absolute Neutrophils Not Reportable Absolute Lymphocytes Not Reportable Absolute Monocytes Not Reportable Absolute Eosinophils Not Reportable Absolute Basophils Not Reportable Sodium 139.8 Potassium 3.9 Chloride 101 Carbon Dioxide 33 H Anion Gap 6 BUN 28 H Creatinine 0.88 Est GFR ( Amer) > 60 Est GFR (Non-Af Amer) > 60 Glucose 185 H Calcium 9.4 06/20/17 04:12 NT-Pro-B Natriuret Pep 243 Impressions: Chest/Abdomen CTA 06/19/17 11:55 IMPRESSION: No pulmonary emboli. Extensive left hilar mass causing atelectasis of the left upper lobe. Enlarged from the previous CT scan. Deviation and compression of the left main pulmonary artery by this extensive mass but there are no emboli. Chest X-Ray 06/27/17 09:05 IMPRESSION: No interval change in the chest with large left perihilar mass. Assessment & Plan - Diagnosis (1) Acute and chronic respiratory failure ([id number]) Qualifiers: Respiratory failure complication: hypoxia Qualified Code(s): J96.21 - Acute and chronic respiratory failure with hypoxia Is this a current diagnosis for this admission?: Yes (2) COPD (chronic obstructive pulmonary disease) with emphysema Qualifiers: Emphysema type: unspecified Qualified Code(s): J43.9 - Emphysema, unspecified Is this a current diagnosis for this admission?: Yes (3) Lung cancer Qualifiers: Laterality: left Lung location: unspecified part of lung Qualified Code(s ): C34.92 - Malignant neoplasm of unspecified part of left bronchus or lung Is this a current diagnosis for this admission?: Yes (4) Chronic diastolic (congestive) heart failure Is this a current diagnosis for this admission?: Yes (5) Tachycardia Is this a current diagnosis for this admission?: Yes Plan: We will increase Cardizem - Time Time Spent with patient: We will continue the present management Patient will remain as an inpatient until she completes radiotherapy Patient is extremely anxious We will decrease dose of Restoril at night she mentions that she was too lethargic last night Patient's prognosis unfortunately is poor Time Spent with patient: 25-34 minutes - Inpatient Certification Based on my medical assessment, after consideration of the patient's comorbidities, presenting symptoms, or acuity I expect that the services needed warrant INPATIENT care.: Yes I certify that my determination is in accordance with my understanding of Medicare's requirements for reasonable and necessary INPATIENT services [42 CFR 412.3e].: Yes Medical Necessity: Need For Continuous Telemetry Monitoring, Need for Nebulizer Therapy and Monitoring of Response, Risk of Complication if Not Cared For in Hospital
[2017-06-27] MEDS: MONTELUKAST SODIUM 10 MG TABLET PO SCH (17:49)
[2017-06-27] MEDS: AMITRIPTYLINE HCL 10 MG TABLET PO SCH (17:50)
[2017-06-28] MEDS: LEVALBUTEROL HCL NEB 1.25 MG/3 ML AMPUL NEB SCH ×6 (03:26→23:58)
[2017-06-28] MEDS: LANSOPRAZOLE 30 MG TAB.RAP.DR PO SCH ×2 (05:23→17:29)
[2017-06-28] MEDS: GUAIFENESIN 600 MG TABLET.SA PO SCH ×2 (05:23→17:24)
[2017-06-28] MEDS: ASPIRIN 325 MG TABLET PO SCH ×2 (05:23→17:24)
[2017-06-28] MEDS: DOCUSATE SODIUM 100 MG CAPSULE PO SCH ×2 (05:23→17:28)
[2017-06-28] MEDS: FLUTICASONE NASAL SPRAY 50 MCG/SPRY 120 SPRAY/16 GM NASL SCH ×2 (05:24→17:29)
[2017-06-28] MEDS: BUDESONIDE/FORMOTEROL 160-4.5 MCG 60 PUFF/6 GM MDI IH SCH ×2 (05:24→17:29)
[2017-06-28] MEDS: ROFLUMILAST 500 MCG TABLET PO SCH (05:24)
[2017-06-28] MEDS: BUSPIRONE HCL 10 MG TABLET PO SCH ×2 (05:24→17:24)
[2017-06-28] MEDS: EZETIMIBE 10 MG TABLET PO SCH (05:24)
[2017-06-28] MEDS: METHYLPREDNISOLONE INJ 40 MG/1 ML SDV IV SCH ×3 (05:24→22:10)
[2017-06-28] MEDS: FUROSEMIDE 20 MG TABLET PO SCH (05:24)
[2017-06-28] MEDS: DILTIAZEM HCL 120 MG CAP.SR.24H PO SCH ×2 (05:24→17:25)
[2017-06-28] MEDS: FOLIC ACID 1 MG TABLET PO SCH (05:24)
[2017-06-28] MEDS: ONDANSETRON HCL 8 MG TABLET PO SCH ×2 (05:24→11:15)
[2017-06-28] MEDS: MIRABEGRON 50 MG PO SCH (05:30)
[2017-06-28] MEDS ORDERED: THEOPHYLLINE ANHYDROUS 300 MG TAB.SR.12H PO ONE (06:08)
[2017-06-28] MEDS: ACETYLCYSTEINE 20% SOLN 800 MG/4 ML VIAL.NEB NEB SCH ×2 (08:25→20:14)
[2017-06-28] MEDS: OXYCODONE-ACETAMINOPHEN 5-325 MG TABLET PO PRN (11:08)
[2017-06-28] MEDS: CYCLOPHOSPHAMIDE 50 MG PO PRN (12:16)
[2017-06-28] MEDS: ENOXAPARIN SODIUM INJ 40 MG/0.4 ML DISP.SYRIN SUBCUT SCH (12:17)
--- NOTE | 2017-06-28 14:21 | CONSULTATION REPORT E ---
Consultation Report NAME: MIKI FROST : 1955 AGE: 62Y DATE: 06/27/2017 304 B TO: RAFI HOFF M.D. FROM: MUNIRA QUIÑONES M.D. REASON FOR CONSULTATION: Lung cancer. HISTORY OF PRESENT ILLNESS: The patient is a 62-year-old woman with non-small cell carcinoma consistent with carcinoma arising in the left hilar of her lung. She was initially treated with Alimta and Keytruda. This is in the setting of severe oxygen dependent COPD. She was surgically unresectable, and was not amenable to CyberKnife radiation surgery. She received 4 cycles of Alimta, carboplatin, and Keytruda. Our restaging PET CT showed residual disease left upper lobe. No new area of disease. She was then referred for thoracic radiation therapy with oral Cytoxan. She has approximately 3 more days of the radiation ongoing. She was admitted into the hospital with shortness of breath, off and on for about 3 days prior to arrival. She has been on aggressive bronchodilator treatment, and she is doing a lot better. I saw her at the bedside, and she appears comfortable on 4 liters oxygen by nasal cannula. She had a lot of questions with our overall prognosis and next line of treatment. PAST MEDICAL HISTORY: Her past medical history as listed above includes COPD on home oxygen, CHF, atrial fibrillation, diabetes, high blood pressure. PHYSICAL EXAMINATION: She is a middle-aged woman. She is not acute ill looking. oxygenating at about 93% on 4 liter nasal cannula. Heart rate about 101. LABORATORY DATA: June 20, 2017: White count 5.6, hemoglobin 13, platelet count 232. 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 She had 4 cycles. Restaging PET scan showed residual disease versus progression. She was started on oral Cytoxan and standard thoracic radiation therapy which is ongoing. I had a long discussion with her, reassuring her, and asking her to try and not to be as anxious. I explained that following the radiation with the oral Cytoxan she will be restaged, and at that point, the next mode of therapy would be determined. She has a followup appointment with Dr. Bernard in July, and I have encouraged her to keep that appointment. I will also see as an outpatient as needed. I thank you for this consultation and allowing me to participate in her care. DICTATING PHYSICIAN: RAFI HOFF M.D. [id number] PHY#: [id number] ID: [id number] JOB#: [id number] ACCT: [id number] cc:RAFI HOFF M.D. >
--- NOTE | 2017-06-28 16:19 | PDOC PROGRESS REPORT ---
Subjective Progress Note for:: 06/28/17 Subjective:: Doing OK. Seen immediately after returning from XRT. Continues to have some respiratory distress. Also endorsed mild pain at site of radiation therapy. Cough persists. Denies fevers, chills, CP. Reason For Visit: WORSENING DYSPNEA LUNG CANCER Physical Exam Vital Signs: Temp Pulse Resp BP Pulse Ox 98.1 F 104 H 20 130/83 H 94 06/28/17 11:06 06/28/17 15:55 06/28/17 15:55 06/28/17 11:06 06/28/17 15:55 Pulse Oximeter Continuous Start: 06/20/17 12: 07 Freq: RTQ4 Status: Active Document 06/28/17 15:55 LDA (Rec: 06/28/17 15:59 LDA [email or web address]) Pulse Oximetry Assessment Oxygen Saturation (92-100) 94 Oxygen Flow Rate (L/min) 4 Oxygen Delivery Method Nasal Cannula Fraction of Inspired Oxygen (FIO2) 36 Equipment Usage Equipment in Use Continuous SpO2 Machine # [id number] Intake & Output 06/27/17 06/28/17 06/29/17 06:59 06:59 06:59 Intake Total 1982 1632 650 Balance 1982 1632 650 Weight 98.6 kg 98.8 kg General appearance: PRESENT: mild distress - tachypnea, obese Head exam: PRESENT: normocephalic Mouth exam: PRESENT: moist Respiratory exam: PRESENT: rhonchi, tachypnea, wheezes, other - NC in place on 4L Cardiovascular exam: PRESENT: +S1, +S2, tachycardia GI/Abdominal exam: PRESENT: soft. ABSENT: tenderness Extremities exam: PRESENT: +1 edema Neurological exam: PRESENT: alert, awake, CN II-XII grossly intact Psychiatric exam: PRESENT: appropriate affect Skin exam: PRESENT: dry, warm Results Laboratory Results: 06/27/17 10:57 06/27/17 10:57 06/20/17 04:12 NT-Pro-B Natriuret Pep 243 Impressions: Chest/Abdomen CTA 06/19/17 11:55 IMPRESSION: No pulmonary emboli. Extensive left hilar mass causing atelectasis of the left upper lobe. Enlarged from the previous CT scan. Deviation and compression of the left main pulmonary artery by this extensive mass but there are no emboli. Chest X-Ray 04/09/18 09:05 IMPRESSION: No interval change in the chest with large left perihilar mass. Assessment & Plan - Diagnosis (1) Lung cancer Qualifiers: Laterality: left Lung location: unspecified part of lung Qualified Code(s ): C34.92 - Malignant neoplasm of unspecified part of left bronchus or lung Is this a current diagnosis for this admission?: Yes Plan: At minimum has locally advanced lung cancer, however full staging scans not available. States that she has received immunotherapy previously - Currently receiving XRT and Cytoxan - Will finish radiation on , 06/30 - Can discharge to home then - Followed locally and with oncology at [facility] (2) Acute and chronic respiratory failure (mprox-bh-ulfbycy) Qualifiers: Respiratory failure complication: hypoxia Qualified Code(s): J96.21 - Acute and chronic respiratory failure with hypoxia Is this a current diagnosis for this admission?: Yes Plan: Due to lung cancer and COPD - Continue XRT, supplemental O2, breathing treatments (3) Dyspnea Qualifiers: Dyspnea type: dyspnea on exertion Qualified Code(s): R06.09 - Other forms of dyspnea Is this a current diagnosis for this admission?: Yes Plan: Per above. (4) Tachycardia Is this a current diagnosis for this admission?: Yes Plan: Improved on higher doses of Cardizem (120mg BID) - Time Time Spent with patient: Less than 15 minutes Anticipated discharge: Home with Homehealth Within: within 48 hours
[2017-06-28] MEDS: MONTELUKAST SODIUM 10 MG TABLET PO SCH (17:25)
[2017-06-28] MEDS: THEOPHYLLINE ANHYDROUS 300 MG TAB.SR.12H PO SCH (17:28)
[2017-06-28] MEDS: AMITRIPTYLINE HCL 10 MG TABLET PO SCH (17:29)
[2017-06-29] MEDS: LEVALBUTEROL HCL NEB 1.25 MG/3 ML AMPUL NEB SCH ×5 (04:01→19:45)
[2017-06-29] MEDS ORDERED: ONDANSETRON HCL 8 MG TABLET PO ONE (05:00)
[2017-06-29] MEDS ORDERED: THEOPHYLLINE ANHYDROUS 300 MG TAB.SR.12H PO ONE (05:18)
[2017-06-29] MEDS: DILTIAZEM HCL 120 MG CAP.SR.24H PO SCH ×2 (05:20→17:19)
[2017-06-29] MEDS: GUAIFENESIN 600 MG TABLET.SA PO SCH ×2 (05:20→17:20)
[2017-06-29] MEDS: ASPIRIN 325 MG TABLET PO SCH ×2 (05:20→17:18)
[2017-06-29] MEDS: EZETIMIBE 10 MG TABLET PO SCH (05:21)
[2017-06-29] MEDS: BUDESONIDE/FORMOTEROL 160-4.5 MCG 60 PUFF/6 GM MDI IH SCH ×2 (05:21→17:20)
[2017-06-29] MEDS: FOLIC ACID 1 MG TABLET PO SCH (05:21)
[2017-06-29] MEDS: ROFLUMILAST 500 MCG TABLET PO SCH (05:21)
[2017-06-29] MEDS: BUSPIRONE HCL 10 MG TABLET PO SCH ×2 (05:21→17:20)
[2017-06-29] MEDS: LANSOPRAZOLE 30 MG TAB.RAP.DR PO SCH ×2 (05:21→17:20)
[2017-06-29] MEDS: FUROSEMIDE 20 MG TABLET PO SCH (05:21)
[2017-06-29] MEDS: DOCUSATE SODIUM 100 MG CAPSULE PO SCH ×2 (05:21→17:19)
[2017-06-29] MEDS: THEOPHYLLINE ANHYDROUS 300 MG TAB.SR.12H PO SCH ×2 (05:22→17:20)
[2017-06-29] MEDS: FLUTICASONE NASAL SPRAY 50 MCG/SPRY 120 SPRAY/16 GM NASL SCH ×2 (05:22→17:20)
[2017-06-29] MEDS: MIRABEGRON 50 MG PO SCH (05:25)
[2017-06-29] MEDS ORDERED: CYCLOPHOSPHAMIDE 50 MG PO PRN (05:30)
[2017-06-29 05:51] LABS: HEMATOCRIT 40.8 % (36.0-47.0); HEMOGLOBIN 13.4 g/dL (12.0-15.5); MEAN CORPUSCULAR HEMOGLOBIN 29.4 pg (27.0-33.4); MEAN CORPUSCULAR HGB CONC 32.8 g/dL (32.0-36.0); MEAN CORPUSCULAR VOLUME 90 fl (80-97); PLATELET COUNT 210 10^3/uL (150-450); RED BLOOD COUNT 4.56 10^6/uL (3.72-5.28); RED CELL DISTRIBUTION WIDTH 15.8 % (11.5-14.0); WHITE BLOOD COUNT 14.7 10^3/uL (4.0-10.5)
[2017-06-29] MEDS: METHYLPREDNISOLONE INJ 40 MG/1 ML SDV IV SCH ×3 (06:00→22:08)
[2017-06-29 06:20] LABS: ABSOLUTE LYMPHOCYTES# (MANUAL) 0.1 10^3/uL (0.5-4.7); ABSOLUTE MONOCYTES # (MANUAL) 0.4 10^3/uL (0.1-1.4); ABSOLUTE NEUTROPHILS# (MANUAL) 14.1 10^3/uL (1.7-8.2); BASOPHILS % (MANUAL) 0 % (0-2); EOSINOPHILS % (MANUAL) 0 % (0-6); LYMPHOCYTES % (MANUAL) 1 % (13-45); MONOCYTES % (MANUAL) 3 % (3-13); SEGMENTED NEUTROPHILS % (MAN) 96 % (42-78); TOTAL CELLS COUNTED 100
[2017-06-29 06:21] LABS: ANISOCYTOSIS SLIGHT; OVALOCYTES SLIGHT; PLATELET COMMENT ADEQUATE; POIKILOCYTOSIS SLIGHT
[2017-06-29] MEDS ORDERED: HYDROXYZINE PAMOATE 25 MG CAPSULE PO PRN (07:56)
[2017-06-29] MEDS: ACETYLCYSTEINE 20% SOLN 800 MG/4 ML VIAL.NEB NEB SCH ×2 (08:20→19:45)
[2017-06-29] MEDS: ENOXAPARIN SODIUM INJ 40 MG/0.4 ML DISP.SYRIN SUBCUT SCH (10:04)
[2017-06-29] MEDS: MONTELUKAST SODIUM 10 MG TABLET PO SCH (17:19)
[2017-06-29] MEDS: AMITRIPTYLINE HCL 10 MG TABLET PO SCH (17:20)
--- NOTE | 2017-06-29 19:02 | PDOC PROGRESS REPORT ---
Subjective Progress Note for:: 06/29/17 Subjective:: No new complaint. Has wheezing and shortness of breath, but improved. Has cough, but nonproductive. Receiving XRT on tolerating. Denies fever or chills , no nausea or vomiting, no chest pain or palpitations. Reason For Visit: WORSENING DYSPNEA LUNG CANCER Physical Exam Vital Signs: Temp Pulse Resp BP Pulse Ox 98.3 F 112 H 20 120/73 92 06/29/17 15:33 06/29/17 16:00 06/29/17 16:00 06/29/17 15:33 06/29/17 16:00 Pulse Oximeter Continuous Start: 06/20/17 12: 07 Freq: RTQ4 Status: Active Document 06/29/17 16:00 CBR (Rec: 06/29/17 16:52 CBR [email or web address]) Pulse Oximetry Assessment Oxygen Saturation (92-100) 92 Oxygen Flow Rate (L/min) 4 Oxygen Delivery Method Nasal Cannula Equipment Usage Equipment in Use Continuous SpO2 Machine # 13 Intake & Output 06/28/17 06/29/17 06/30/17 06:59 06:59 06:59 Intake Total 1632 2422 652 Balance 1632 2422 652 Weight 98.8 kg 100.1 kg GEN: NAD, well-developed, well-nourished CV: RRR, NL S1S2 LUNGS: Wheezing/rhonchi bilaterally ABDOMEN Soft, NT, +BS EXTERMITIES: No e/c/c NEURO: Alert, oriented 3, nonfocal Results Laboratory Results: 06/29/17 04:49 06/27/17 10:57 06/29/17 04:49 WBC 14.7 H RBC 4.56 Hgb 13.4 Hct 40.8 MCV 90 MCH 29.4 MCHC 32.8 RDW 15.8 H Plt Count 210 Seg Neutrophils % Not Reportable Lymphocytes % Not Reportable Monocytes % Not Reportable Eosinophils % Not Reportable Basophils % Not Reportable Absolute Neutrophils Not Reportable Absolute Lymphocytes Not Reportable Absolute Monocytes Not Reportable Absolute Eosinophils Not Reportable Absolute Basophils Not Reportable 06/20/17 04:12 NT-Pro-B Natriuret Pep 243 Impressions: Chest/Abdomen CTA 06/19/17 11:55 IMPRESSION: No pulmonary emboli. Extensive left hilar mass causing atelectasis of the left upper lobe. Enlarged from the previous CT scan. Deviation and compression of the left main pulmonary artery by this extensive mass but there are no emboli. Chest X-Ray 06/27/17 09:05 IMPRESSION: No interval change in the chest with large left perihilar mass. Assessment & Plan - Plan Summary Plan Summary: (1) Lung cancer Qualifiers: Laterality: left Lung location: unspecified part of lung Qualified Code(s ): C34.92 - Malignant neoplasm of unspecified part of left bronchus or lung Is this a current diagnosis for this admission?: Yes Plan: At minimum has locally advanced lung cancer, however full staging scans not available. States that she has received immunotherapy previously - Currently receiving XRT and Cytoxan - Will finish radiation on , 06/30 - Followed locally and with oncology at [facility] (2) Acute and chronic respiratory failure ([id number]-mc-gkwrcsi) Qualifiers: Respiratory failure complication: hypoxia Qualified Code(s): J96.21 - Acute and chronic respiratory failure with hypoxia Is this a current diagnosis for this admission?: Yes Plan: Due to lung cancer and COPD - Continue XRT, supplemental O2, breathing treatments (3) Dyspnea Qualifiers: Dyspnea type: dyspnea on exertion Qualified Code(s): R06.09 - Other forms of dyspnea Is this a current diagnosis for this admission?: Yes Plan: Per above. (4) Tachycardia Is this a current diagnosis for this admission?: Yes Plan: Improved, on higher doses of Cardizem (120mg BID)
[2017-06-30] MEDS: LEVALBUTEROL HCL NEB 1.25 MG/3 ML AMPUL NEB SCH ×7 (00:13→23:55)
[2017-06-30 05:11] LABS: HEMATOCRIT 41.4 % (36.0-47.0); HEMOGLOBIN 13.7 g/dL (12.0-15.5); MEAN CORPUSCULAR HEMOGLOBIN 29.9 pg (27.0-33.4); MEAN CORPUSCULAR HGB CONC 33.1 g/dL (32.0-36.0); MEAN CORPUSCULAR VOLUME 90 fl (80-97); PLATELET COUNT 193 10^3/uL (150-450); RED BLOOD COUNT 4.59 10^6/uL (3.72-5.28); RED CELL DISTRIBUTION WIDTH 15.8 % (11.5-14.0); WHITE BLOOD COUNT 10.8 10^3/uL (4.0-10.5)
[2017-06-30] MEDS ORDERED: THEOPHYLLINE ANHYDROUS 300 MG TAB.SR.12H PO ONE (05:25)
[2017-06-30] MEDS: BUDESONIDE/FORMOTEROL 160-4.5 MCG 60 PUFF/6 GM MDI IH SCH ×2 (05:31→17:24)
[2017-06-30] MEDS: FLUTICASONE NASAL SPRAY 50 MCG/SPRY 120 SPRAY/16 GM NASL SCH ×2 (05:31→17:24)
[2017-06-30] MEDS: DOCUSATE SODIUM 100 MG CAPSULE PO SCH ×2 (05:32→17:19)
[2017-06-30] MEDS: EZETIMIBE 10 MG TABLET PO SCH (05:32)
[2017-06-30] MEDS: THEOPHYLLINE ANHYDROUS 300 MG TAB.SR.12H PO SCH ×2 (05:32→17:23)
[2017-06-30] MEDS: FUROSEMIDE 20 MG TABLET PO SCH (05:33)
[2017-06-30] MEDS: ROFLUMILAST 500 MCG TABLET PO SCH (05:33)
[2017-06-30] MEDS: LANSOPRAZOLE 30 MG TAB.RAP.DR PO SCH ×2 (05:33→17:19)
[2017-06-30] MEDS: GUAIFENESIN 600 MG TABLET.SA PO SCH ×2 (05:33→17:23)
[2017-06-30] MEDS: ASPIRIN 325 MG TABLET PO SCH ×2 (05:33→17:23)
[2017-06-30] MEDS: FOLIC ACID 1 MG TABLET PO SCH (05:33)
[2017-06-30] MEDS: BUSPIRONE HCL 10 MG TABLET PO SCH ×2 (05:34→17:23)
[2017-06-30] MEDS: ONDANSETRON HCL 8 MG TABLET PO SCH (05:34)
[2017-06-30] MEDS: METHYLPREDNISOLONE INJ 40 MG/1 ML SDV IV SCH ×3 (05:34→21:32)
[2017-06-30] MEDS: DILTIAZEM HCL 120 MG CAP.SR.24H PO SCH ×2 (05:34→17:24)
[2017-06-30] MEDS: MIRABEGRON 50 MG PO SCH (05:34)
[2017-06-30 05:41] LABS: ANION GAP 11 (5-19); BLOOD UREA NITROGEN 25 mg/dL (7-20); CALCIUM 9.2 mg/dL (8.4-10.2); CARBON DIOXIDE 29 mmol/L (22-30); CHLORIDE 100 mmol/L (98-107); GLUCOSE 143 mg/dL (75-110); POTASSIUM 4.2 mmol/L (3.6-5.0)
[2017-06-30] MEDS: NYSTATIN 500000 UNIT/5 ML UDCUP PO PRN (05:42)
[2017-06-30 05:43] LABS: ABSOLUTE MONOCYTES # (MANUAL) 0.9 10^3/uL (0.1-1.4); ABSOLUTE NEUTROPHILS# (MANUAL) 9.9 10^3/uL (1.7-8.2); BASOPHILS % (MANUAL) 0 % (0-2); EOSINOPHILS % (MANUAL) 0 % (0-6); LYMPHOCYTES % (MANUAL) 0 % (13-45); MONOCYTES % (MANUAL) 8 % (3-13); SEGMENTED NEUTROPHILS % (MAN) 92 % (42-78); TOTAL CELLS COUNTED 100
[2017-06-30 05:44] LABS: TOXIC GRANULATION 1+
[2017-06-30 05:45] LABS: PLATELET COMMENT ADEQUATE; POIKILOCYTOSIS SLIGHT; TEAR DROP CELLS SLIGHT
[2017-06-30] MEDS: CYCLOPHOSPHAMIDE 50 MG PO SCH (06:04)
[2017-06-30] MEDS: ACETYLCYSTEINE 20% SOLN 800 MG/4 ML VIAL.NEB NEB SCH ×2 (08:53→19:58)
[2017-06-30] MEDS: ENOXAPARIN SODIUM INJ 40 MG/0.4 ML DISP.SYRIN SUBCUT SCH (09:21)
[2017-06-30] MEDS: PROCHLORPERAZINE MALEATE 10 MG TABLET PO PRN (12:04)
--- NOTE | 2017-06-30 12:25 | Pulmonary Function Test ---
Pulmonary Function Test Date of Procedure:: 06/30/17 INDICATION:: Dyspnea Referring Provider: Dr. Torre - Report Spirometry: FVC 1.56 L 47% postbronchodilator 1.58 L 48% FEV1 0.95 L 36% postbronchodilator 0.98 L 37% FEV1/FVC % 61 postbronchodilator 62 predicted 89 FEF 25-75% 0.93 L 34% postbronchodilator 0.97 L 35% Impression: Very severe obstructive ventilatory defect with insignificant response to bronchodilator therapy. This in and of itself does not preclude a clinical trial of bronchodilator therapy.
--- NOTE | 2017-06-30 12:32 | PDOC PROGRESS REPORT ---
Subjective Progress Note for:: 06/27/17 Subjective:: Continue dyspnea and anxiety Reason For Visit: WORSENING DYSPNEA LUNG CANCER Physical Exam Vital Signs: Temp Pulse Resp BP Pulse Ox 98.9 F 113 H 18 106/81 92 06/30/17 07:22 06/30/17 12:00 06/30/17 12:00 06/30/17 07:22 06/30/17 12:00 Pulse Oximeter Continuous Start: 06/20/17 12: 07 Freq: RTQ4 Status: Active Document 06/30/17 12:00 HCR (Rec: 06/30/17 12:22 HCR [email or web address]) Pulse Oximetry Assessment Oxygen Saturation (92-100) 92 Oxygen Flow Rate (L/min) 4 Oxygen Delivery Method Nasal Cannula Equipment Usage Equipment in Use Continuous SpO2 Machine # 13 Intake & Output 06/29/17 06/30/17 07/01/17 06:59 06:59 06:59 Intake Total 2422 1174 Balance 2422 1174 Weight 100.1 kg 99.6 kg General appearance: PRESENT: cooperative, disheveled, obese Head exam: PRESENT: atraumatic, normocephalic Eye exam: PRESENT: conjunctiva pale, EOMI. ABSENT: nystagmus, periorbital swelling, scleral icterus Mouth exam: PRESENT: dry mucosa, neck supple, tongue midline Respiratory exam: PRESENT: decreased breath sounds, prolonged expiratory phas, rales, rhonchi, symmetrical, unlabored, wheezes. ABSENT: tachypnea Cardiovascular exam: PRESENT: RRR, +S1, +S2, tachycardia Pulses: PRESENT: normal radial pulses GI/Abdominal exam: PRESENT: diminished bowel sounds, soft Extremities exam: ABSENT: calf tenderness, clubbing, joint swelling Musculoskeletal exam: ABSENT: deformity, dislocation Neurological exam: PRESENT: alert, awake Psychiatric exam: PRESENT: flat affect Skin exam: PRESENT: dry, warm Results Laboratory Results: 06/30/17 04:08 06/30/17 04:08 06/30/17 06/30/17 04:08 04:08 WBC 10.8 H RBC 4.59 Hgb 13.7 Hct 41.4 MCV 90 MCH 29.9 MCHC 33.1 RDW 15.8 H Plt Count 193 Seg Neutrophils % Not Reportable Lymphocytes % Not Reportable Monocytes % Not Reportable Eosinophils % Not Reportable Basophils % Not Reportable Absolute Neutrophils Not Reportable Absolute Lymphocytes Not Reportable Absolute Monocytes Not Reportable Absolute Eosinophils Not Reportable Absolute Basophils Not Reportable Sodium 140.0 Potassium 4.2 Chloride 100 Carbon Dioxide 29 Anion Gap 11 BUN 25 H Creatinine 0.68 Est GFR ( Amer) > 60 Est GFR (Non-Af Amer) > 60 Glucose 143 H Calcium 9.2 06/20/17 04:12 NT-Pro-B Natriuret Pep 243 Impressions: Chest/Abdomen CTA 06/19/17 11:55 IMPRESSION: No pulmonary emboli. Extensive left hilar mass causing atelectasis of the left upper lobe. Enlarged from the previous CT scan. Deviation and compression of the left main pulmonary artery by this extensive mass but there are no emboli. Chest X-Ray 06/27/17 09:05 IMPRESSION: No interval change in the chest with large left perihilar mass. Assessment & Plan - Diagnosis (1) Lung cancer Qualifiers: Laterality: left Lung location: unspecified part of lung Qualified Code(s ): C34.92 - Malignant neoplasm of unspecified part of left bronchus or lung Is this a current diagnosis for this admission?: Yes Plan: DR Kyrie Bernard [phone] Oncology i haved called left my name and number; Continues radiation therapy (2) Acute and chronic respiratory failure ([id number]) Qualifiers: Respiratory failure complication: hypoxia Qualified Code(s): J96.21 - Acute and chronic respiratory failure with hypoxia Is this a current diagnosis for this admission?: Yes Plan: continue current rx (3) COPD (chronic obstructive pulmonary disease) with emphysema Qualifiers: Emphysema type: unspecified Qualified Code(s): J43.9 - Emphysema, unspecified Is this a current diagnosis for this admission?: Yes Plan: Unchanged
--- NOTE | 2017-06-30 12:33 | PDOC PROGRESS REPORT ---
Subjective Progress Note for:: 06/28/17 Subjective:: Continue dyspnea and anxiety Reason For Visit: WORSENING DYSPNEA LUNG CANCER Physical Exam Vital Signs: Temp Pulse Resp BP Pulse Ox 98.9 F 113 H 18 106/81 92 06/30/17 07:22 06/30/17 12:00 06/30/17 12:00 06/30/17 07:22 06/30/17 12:00 Pulse Oximeter Continuous Start: 06/20/17 12: 07 Freq: RTQ4 Status: Active Document 06/30/17 12:00 HCR (Rec: 06/30/17 12:22 HCR [email or web address]) Pulse Oximetry Assessment Oxygen Saturation (92-100) 92 Oxygen Flow Rate (L/min) 4 Oxygen Delivery Method Nasal Cannula Equipment Usage Equipment in Use Continuous SpO2 Machine # 13 Intake & Output 06/29/17 06/30/17 07/01/17 06:59 06:59 06:59 Intake Total 2422 1174 Balance 2422 1174 Weight 100.1 kg 99.6 kg General appearance: PRESENT: no acute distress, cooperative, disheveled, obese Head exam: PRESENT: atraumatic, normocephalic Eye exam: PRESENT: conjunctiva pale, EOMI. ABSENT: nystagmus, periorbital swelling, scleral icterus Mouth exam: PRESENT: dry mucosa, neck supple, tongue midline Neck exam: ABSENT: carotid bruit, JVD, lymphadenopathy, thyromegaly, tracheal deviation, tracheostomy Respiratory exam: PRESENT: decreased breath sounds, prolonged expiratory phas, rales, rhonchi, symmetrical, wheezes. ABSENT: retraction, stridor, tachypnea Cardiovascular exam: PRESENT: RRR, +S1, +S2, tachycardia Pulses: PRESENT: normal radial pulses GI/Abdominal exam: PRESENT: diminished bowel sounds, soft Extremities exam: ABSENT: calf tenderness, clubbing, joint swelling Musculoskeletal exam: ABSENT: deformity, dislocation Neurological exam: PRESENT: alert, awake Psychiatric exam: PRESENT: flat affect Skin exam: PRESENT: dry, warm Results Laboratory Results: 06/30/17 04:08 06/30/17 04:08 06/30/17 06/30/17 04:08 04:08 WBC 10.8 H RBC 4.59 Hgb 13.7 Hct 41.4 MCV 90 MCH 29.9 MCHC 33.1 RDW 15.8 H Plt Count 193 Seg Neutrophils % Not Reportable Lymphocytes % Not Reportable Monocytes % Not Reportable Eosinophils % Not Reportable Basophils % Not Reportable Absolute Neutrophils Not Reportable Absolute Lymphocytes Not Reportable Absolute Monocytes Not Reportable Absolute Eosinophils Not Reportable Absolute Basophils Not Reportable Sodium 140.0 Potassium 4.2 Chloride 100 Carbon Dioxide 29 Anion Gap 11 BUN 25 H Creatinine 0.68 Est GFR ( Amer) > 60 Est GFR (Non-Af Amer) > 60 Glucose 143 H Calcium 9.2 06/20/17 04:12 NT-Pro-B Natriuret Pep 243 Impressions: Chest/Abdomen CTA 06/19/17 11:55 IMPRESSION: No pulmonary emboli. Extensive left hilar mass causing atelectasis of the left upper lobe. Enlarged from the previous CT scan. Deviation and compression of the left main pulmonary artery by this extensive mass but there are no emboli. Chest X-Ray 06/27/17 09:05 IMPRESSION: No interval change in the chest with large left perihilar mass. Assessment & Plan - Diagnosis (1) Lung cancer Qualifiers: Laterality: left Lung location: unspecified part of lung Qualified Code(s ): C34.92 - Malignant neoplasm of unspecified part of left bronchus or lung Is this a current diagnosis for this admission?: Yes Plan: DR Kyrie Bernard [phone] Oncology i haved called left my name and number; Continues radiation therapy (2) Acute and chronic respiratory failure ([id number]-ggynkox) Qualifiers: Respiratory failure complication: hypoxia Qualified Code(s): J96.21 - Acute and chronic respiratory failure with hypoxia Is this a current diagnosis for this admission?: Yes Plan: continue current rx (3) COPD (chronic obstructive pulmonary disease) with emphysema Qualifiers: Emphysema type: unspecified Qualified Code(s): J43.9 - Emphysema, unspecified Is this a current diagnosis for this admission?: Yes Plan: Unchanged
--- NOTE | 2017-06-30 12:36 | PDOC PROGRESS REPORT ---
Subjective Progress Note for:: 06/29/17 Subjective:: Continued dyspnea Reason For Visit: WORSENING DYSPNEA LUNG CANCER Physical Exam Vital Signs: Temp Pulse Resp BP Pulse Ox 98.9 F 113 H 18 106/81 92 06/30/17 07:22 06/30/17 12:00 06/30/17 12:00 06/30/17 07:22 06/30/17 12:00 Pulse Oximeter Continuous Start: 06/20/17 12: 07 Freq: RTQ4 Status: Active Document 06/30/17 12:00 HCR (Rec: 06/30/17 12:22 HCR [email or web address]) Pulse Oximetry Assessment Oxygen Saturation (92-100) 92 Oxygen Flow Rate (L/min) 4 Oxygen Delivery Method Nasal Cannula Equipment Usage Equipment in Use Continuous SpO2 Machine # 13 Intake & Output 06/29/17 06/30/17 07/01/17 06:59 06:59 06:59 Intake Total 2422 1174 Balance 2422 1174 Weight 100.1 kg 99.6 kg General appearance: PRESENT: no acute distress, cooperative, disheveled Head exam: PRESENT: atraumatic, normocephalic Eye exam: PRESENT: conjunctiva pale, EOMI. ABSENT: nystagmus, periorbital swelling, scleral icterus Mouth exam: PRESENT: dry mucosa, neck supple, tongue midline Neck exam: ABSENT: carotid bruit, JVD, lymphadenopathy, thyromegaly, tracheal deviation, tracheostomy Respiratory exam: PRESENT: decreased breath sounds, prolonged expiratory phas, rales, rhonchi, symmetrical, wheezes. ABSENT: clear to auscultation elena, retraction, stridor, tachypnea, unlabored Cardiovascular exam: PRESENT: RRR, +S1, +S2, tachycardia Pulses: PRESENT: normal radial pulses GI/Abdominal exam: PRESENT: diminished bowel sounds, soft Extremities exam: PRESENT: full ROM. ABSENT: calf tenderness, clubbing, joint swelling Musculoskeletal exam: PRESENT: full ROM. ABSENT: deformity, dislocation Neurological exam: PRESENT: alert, awake Psychiatric exam: PRESENT: anxious, depressed, flat affect Skin exam: PRESENT: dry, warm Results Laboratory Results: 06/30/17 04:08 06/30/17 04:08 06/30/17 06/30/17 04:08 04:08 WBC 10.8 H RBC 4.59 Hgb 13.7 Hct 41.4 MCV 90 MCH 29.9 MCHC 33.1 RDW 15.8 H Plt Count 193 Seg Neutrophils % Not Reportable Lymphocytes % Not Reportable Monocytes % Not Reportable Eosinophils % Not Reportable Basophils % Not Reportable Absolute Neutrophils Not Reportable Absolute Lymphocytes Not Reportable Absolute Monocytes Not Reportable Absolute Eosinophils Not Reportable Absolute Basophils Not Reportable Sodium 140.0 Potassium 4.2 Chloride 100 Carbon Dioxide 29 Anion Gap 11 BUN 25 H Creatinine 0.68 Est GFR ( Amer) > 60 Est GFR (Non-Af Amer) > 60 Glucose 143 H Calcium 9.2 06/20/17 04:12 NT-Pro-B Natriuret Pep 243 Impressions: Chest/Abdomen CTA 06/19/17 11:55 IMPRESSION: No pulmonary emboli. Extensive left hilar mass causing atelectasis of the left upper lobe. Enlarged from the previous CT scan. Deviation and compression of the left main pulmonary artery by this extensive mass but there are no emboli. Chest X-Ray 06/27/17 09:05 IMPRESSION: No interval change in the chest with large left perihilar mass. Assessment & Plan - Diagnosis (1) Lung cancer Qualifiers: Laterality: left Lung location: unspecified part of lung Qualified Code(s ): C34.92 - Malignant neoplasm of unspecified part of left bronchus or lung Is this a current diagnosis for this admission?: Yes Plan: DR Kyrie Bernard [phone] Oncology i haved called left my name and number; Continues radiation therapy;Please see consultation from Dr. Stark (2) Acute and chronic respiratory failure ([id number]) Qualifiers: Respiratory failure complication: hypoxia Qualified Code(s): J96.21 - Acute and chronic respiratory failure with hypoxia Is this a current diagnosis for this admission?: Yes Plan: continue current rx (3) COPD (chronic obstructive pulmonary disease) with emphysema Qualifiers: Emphysema type: unspecified Qualified Code(s): J43.9 - Emphysema, unspecified Is this a current diagnosis for this admission?: Yes Plan: Unchanged
--- NOTE | 2017-06-30 12:39 | PDOC PROGRESS REPORT ---
Subjective Progress Note for:: 06/30/17 Subjective:: Continued dyspnea Reason For Visit: WORSENING DYSPNEA LUNG CANCER Physical Exam Vital Signs: Temp Pulse Resp BP Pulse Ox 98.9 F 113 H 18 106/81 92 06/30/17 07:22 06/30/17 12:00 06/30/17 12:00 06/30/17 07:22 06/30/17 12:00 Pulse Oximeter Continuous Start: 06/20/17 12: 07 Freq: RTQ4 Status: Active Document 06/30/17 12:00 HCR (Rec: 06/30/17 12:22 HCR [email or web address]) Pulse Oximetry Assessment Oxygen Saturation (92-100) 92 Oxygen Flow Rate (L/min) 4 Oxygen Delivery Method Nasal Cannula Equipment Usage Equipment in Use Continuous SpO2 Machine # 13 Intake & Output 06/29/17 06/30/17 07/01/17 06:59 06:59 06:59 Intake Total 2422 1174 Balance 2422 1174 Weight 100.1 kg 99.6 kg General appearance: PRESENT: no acute distress, cooperative, disheveled Head exam: PRESENT: atraumatic, normocephalic Eye exam: PRESENT: conjunctiva pale, EOMI. ABSENT: nystagmus, periorbital swelling, scleral icterus Mouth exam: PRESENT: dry mucosa, neck supple, tongue midline Neck exam: ABSENT: carotid bruit, JVD, lymphadenopathy, thyromegaly, tracheal deviation, tracheostomy Respiratory exam: PRESENT: decreased breath sounds, prolonged expiratory phas, rales, rhonchi, symmetrical, wheezes. ABSENT: retraction, stridor, tachypnea Cardiovascular exam: PRESENT: RRR, +S1, +S2, tachycardia Pulses: PRESENT: normal radial pulses GI/Abdominal exam: PRESENT: diminished bowel sounds, soft Extremities exam: ABSENT: clubbing, joint swelling Musculoskeletal exam: ABSENT: deformity, dislocation Neurological exam: PRESENT: alert, awake Psychiatric exam: PRESENT: anxious, flat affect Skin exam: PRESENT: dry, warm Results Laboratory Results: 06/30/17 04:08 06/30/17 04:08 06/30/17 06/30/17 04:08 04:08 WBC 10.8 H RBC 4.59 Hgb 13.7 Hct 41.4 MCV 90 MCH 29.9 MCHC 33.1 RDW 15.8 H Plt Count 193 Seg Neutrophils % Not Reportable Lymphocytes % Not Reportable Monocytes % Not Reportable Eosinophils % Not Reportable Basophils % Not Reportable Absolute Neutrophils Not Reportable Absolute Lymphocytes Not Reportable Absolute Monocytes Not Reportable Absolute Eosinophils Not Reportable Absolute Basophils Not Reportable Sodium 140.0 Potassium 4.2 Chloride 100 Carbon Dioxide 29 Anion Gap 11 BUN 25 H Creatinine 0.68 Est GFR ( Amer) > 60 Est GFR (Non-Af Amer) > 60 Glucose 143 H Calcium 9.2 06/20/17 04:12 NT-Pro-B Natriuret Pep 243 Impressions: Chest/Abdomen CTA 06/19/17 11:55 IMPRESSION: No pulmonary emboli. Extensive left hilar mass causing atelectasis of the left upper lobe. Enlarged from the previous CT scan. Deviation and compression of the left main pulmonary artery by this extensive mass but there are no emboli. Chest X-Ray 06/27/17 09:05 IMPRESSION: No interval change in the chest with large left perihilar mass. Assessment & Plan - Diagnosis (1) Lung cancer Qualifiers: Laterality: left Lung location: unspecified part of lung Qualified Code(s ): C34.92 - Malignant neoplasm of unspecified part of left bronchus or lung Is this a current diagnosis for this admission?: Yes Plan: Last day of radiation therapy (2) Acute and chronic respiratory failure ([id number]) Qualifiers: Respiratory failure complication: hypoxia Qualified Code(s): J96.21 - Acute and chronic respiratory failure with hypoxia Is this a current diagnosis for this admission?: Yes Plan: continue current rx,On 5 L still desaturates and rest intermittently (3) COPD (chronic obstructive pulmonary disease) with emphysema Qualifiers: Emphysema type: unspecified Qualified Code(s): J43.9 - Emphysema, unspecified Is this a current diagnosis for this admission?: Yes Plan: Unchanged
--- NOTE | 2017-06-30 17:19 | PDOC PROGRESS REPORT ---
Subjective Progress Note for:: 06/30/17 Subjective:: No new complaint. Has wheezing and shortness of breath, but improved. Has cough, but nonproductive. Receiving XRT and tolerating. Denies fever or chills , no nausea or vomiting, no chest pain or palpitations. Has last radiation therapy session today and she thinks she may be able to go home tomorrow. Reason For Visit: WORSENING DYSPNEA LUNG CANCER Physical Exam Vital Signs: Temp Pulse Resp BP Pulse Ox 98.8 F 103 H 16 115/73 95 06/30/17 15:43 06/30/17 15:43 06/30/17 15:43 06/30/17 15:43 06/30/17 15:43 Pulse Oximeter Continuous Start: 06/20/17 12: 07 Freq: RTQ4 Status: Active Document 06/30/17 12:00 HCR (Rec: 06/30/17 12:22 HCR [email or web address]) Pulse Oximetry Assessment Oxygen Saturation (92-100) 92 Oxygen Flow Rate (L/min) 4 Oxygen Delivery Method Nasal Cannula Equipment Usage Equipment in Use Continuous SpO2 Machine # 13 Intake & Output 06/29/17 06/30/17 07/01/17 06:59 06:59 06:59 Intake Total 2422 1174 637 Balance 2422 1174 637 Weight 100.1 kg 99.6 kg GEN: NAD, well-developed, well-nourished CV: RRR, NL S1S2 LUNGS: Wheezing/rhonchi bilaterally ABDOMEN Soft, NT, +BS EXTERMITIES: No e/c/c NEURO: Alert, oriented 3, nonfocal Results Laboratory Results: 06/30/17 04:08 06/30/17 04:08 06/30/17 06/30/17 04:08 04:08 WBC 10.8 H RBC 4.59 Hgb 13.7 Hct 41.4 MCV 90 MCH 29.9 MCHC 33.1 RDW 15.8 H Plt Count 193 Seg Neutrophils % Not Reportable Lymphocytes % Not Reportable Monocytes % Not Reportable Eosinophils % Not Reportable Basophils % Not Reportable Absolute Neutrophils Not Reportable Absolute Lymphocytes Not Reportable Absolute Monocytes Not Reportable Absolute Eosinophils Not Reportable Absolute Basophils Not Reportable Sodium 140.0 Potassium 4.2 Chloride 100 Carbon Dioxide 29 Anion Gap 11 BUN 25 H Creatinine 0.68 Est GFR ( Amer) > 60 Est GFR (Non-Af Amer) > 60 Glucose 143 H Calcium 9.2 06/20/17 04:12 NT-Pro-B Natriuret Pep 243 Impressions: Chest/Abdomen CTA 06/19/17 11:55 IMPRESSION: No pulmonary emboli. Extensive left hilar mass causing atelectasis of the left upper lobe. Enlarged from the previous CT scan. Deviation and compression of the left main pulmonary artery by this extensive mass but there are no emboli. Chest X-Ray 06/27/17 09:05 IMPRESSION: No interval change in the chest with large left perihilar mass. Assessment & Plan - Plan Summary Plan Summary: (1) Lung cancer Qualifiers: Laterality: left Lung location: unspecified part of lung Qualified Code(s ): C34.92 - Malignant neoplasm of unspecified part of left bronchus or lung Is this a current diagnosis for this admission?: Yes Plan: At minimum has locally advanced lung cancer, however full staging scans not available. States that she has received immunotherapy previously - Currently receiving XRT and Cytoxan - Will finish radiation on today - Followed locally and with oncology at [facility] -Likely discharge home in a.m. if stable (2) Acute and chronic respiratory failure ([id number]) Qualifiers: Respiratory failure complication: hypoxia Qualified Code(s): J96.21 - Acute and chronic respiratory failure with hypoxia Is this a current diagnosis for this admission?: Yes Plan: Due to lung cancer and COPD - Continue XRT, supplemental O2, breathing treatments (3) Dyspnea Qualifiers: Dyspnea type: dyspnea on exertion Qualified Code(s): R06.09 - Other forms of dyspnea Is this a current diagnosis for this admission?: Yes Plan: Per above. (4) Tachycardia Is this a current diagnosis for this admission?: Yes Plan: Improved, on higher doses of Cardizem (120mg BID)
[2017-06-30] MEDS: MONTELUKAST SODIUM 10 MG TABLET PO SCH (17:23)
[2017-06-30] MEDS: AMITRIPTYLINE HCL 10 MG TABLET PO SCH (17:24)
[2017-07-01] MEDS: LEVALBUTEROL HCL NEB 1.25 MG/3 ML AMPUL NEB SCH ×5 (03:55→19:51)
[2017-07-01] MEDS: ROFLUMILAST 500 MCG TABLET PO SCH (05:07)
[2017-07-01] MEDS: FUROSEMIDE 20 MG TABLET PO SCH (05:08)
[2017-07-01] MEDS: ASPIRIN 325 MG TABLET PO SCH ×2 (05:08→18:05)
[2017-07-01] MEDS: ONDANSETRON HCL 8 MG TABLET PO SCH (05:08)
[2017-07-01] MEDS: GUAIFENESIN 600 MG TABLET.SA PO SCH ×2 (05:08→18:05)
[2017-07-01] MEDS: METHYLPREDNISOLONE INJ 40 MG/1 ML SDV IV SCH ×3 (05:08→22:29)
[2017-07-01] MEDS: FLUTICASONE NASAL SPRAY 50 MCG/SPRY 120 SPRAY/16 GM NASL SCH ×2 (05:08→18:08)
[2017-07-01] MEDS: DILTIAZEM HCL 120 MG CAP.SR.24H PO SCH ×2 (05:08→18:06)
[2017-07-01] MEDS: LANSOPRAZOLE 30 MG TAB.RAP.DR PO SCH ×2 (05:08→18:05)
[2017-07-01] MEDS: FOLIC ACID 1 MG TABLET PO SCH (05:08)
[2017-07-01] MEDS: DOCUSATE SODIUM 100 MG CAPSULE PO SCH ×2 (05:08→18:06)
[2017-07-01] MEDS: BUDESONIDE/FORMOTEROL 160-4.5 MCG 60 PUFF/6 GM MDI IH SCH ×2 (05:08→18:06)
[2017-07-01] MEDS: EZETIMIBE 10 MG TABLET PO SCH (05:08)
[2017-07-01] MEDS: BUSPIRONE HCL 10 MG TABLET PO SCH ×2 (05:08→18:05)
[2017-07-01] MEDS ORDERED: THEOPHYLLINE ANHYDROUS 300 MG TAB.SR.12H PO ONE (05:09)
[2017-07-01] MEDS: MIRABEGRON 50 MG PO SCH (05:10)
[2017-07-01] MEDS: THEOPHYLLINE ANHYDROUS 300 MG TAB.SR.12H PO SCH ×2 (05:53→18:06)
[2017-07-01] MEDS: CYCLOPHOSPHAMIDE 50 MG PO SCH (05:56)
[2017-07-01] MEDS: ACETYLCYSTEINE 20% SOLN 800 MG/4 ML VIAL.NEB NEB SCH ×2 (08:16→19:51)
[2017-07-01] MEDS: ENOXAPARIN SODIUM INJ 40 MG/0.4 ML DISP.SYRIN SUBCUT SCH (10:48)
--- NOTE | 2017-07-01 12:25 | PDOC PROGRESS REPORT ---
Subjective Progress Note for:: 07/01/17 Subjective:: Unchanged Reason For Visit: WORSENING DYSPNEA LUNG CANCER Physical Exam Vital Signs: Temp Pulse Resp BP Pulse Ox 99.1 F 113 H 18 118/81 92 06/30/17 11:37 06/30/17 12:00 06/30/17 12:00 06/30/17 11:37 06/30/17 12:00 Pulse Oximeter Continuous Start: 06/20/17 12: 07 Freq: RTQ4 Status: Active Document 06/30/17 12:00 HCR (Rec: 06/30/17 12:22 HCR [email or web address]) Pulse Oximetry Assessment Oxygen Saturation (92-100) 92 Oxygen Flow Rate (L/min) 4 Oxygen Delivery Method Nasal Cannula Equipment Usage Equipment in Use Continuous SpO2 Machine # 13 Intake & Output 06/29/17 06/30/17 07/01/17 06:59 06:59 06:59 Intake Total 2422 1174 637 Balance 2422 1174 637 Weight 100.1 kg 99.6 kg General appearance: PRESENT: no acute distress, cooperative, disheveled, obese Head exam: PRESENT: atraumatic, normocephalic Eye exam: PRESENT: conjunctiva pale, EOMI. ABSENT: nystagmus, periorbital swelling, scleral icterus Mouth exam: PRESENT: dry mucosa, neck supple, tongue midline Neck exam: ABSENT: carotid bruit, JVD, lymphadenopathy, thyromegaly, tracheal deviation, tracheostomy Respiratory exam: PRESENT: decreased breath sounds, prolonged expiratory phas, rhonchi, symmetrical, unlabored. ABSENT: rales, retraction, stridor Cardiovascular exam: PRESENT: RRR, +S1, +S2, tachycardia Pulses: PRESENT: normal radial pulses GI/Abdominal exam: PRESENT: diminished bowel sounds, soft Extremities exam: ABSENT: calf tenderness, clubbing, joint swelling Musculoskeletal exam: ABSENT: deformity, dislocation Neurological exam: PRESENT: alert, awake Psychiatric exam: PRESENT: depressed, flat affect Skin exam: PRESENT: dry, warm Results Laboratory Results: 06/30/17 04:08 06/30/17 04:08 06/30/17 06/30/17 04:08 04:08 WBC 10.8 H RBC 4.59 Hgb 13.7 Hct 41.4 MCV 90 MCH 29.9 MCHC 33.1 RDW 15.8 H Plt Count 193 Seg Neutrophils % Not Reportable Lymphocytes % Not Reportable Monocytes % Not Reportable Eosinophils % Not Reportable Basophils % Not Reportable Absolute Neutrophils Not Reportable Absolute Lymphocytes Not Reportable Absolute Monocytes Not Reportable Absolute Eosinophils Not Reportable Absolute Basophils Not Reportable Sodium 140.0 Potassium 4.2 Chloride 100 Carbon Dioxide 29 Anion Gap 11 BUN 25 H Creatinine 0.68 Est GFR ( Amer) > 60 Est GFR (Non-Af Amer) > 60 Glucose 143 H Calcium 9.2 06/20/17 04:12 NT-Pro-B Natriuret Pep 243 Impressions: Chest/Abdomen CTA 06/19/17 11:55 IMPRESSION: No pulmonary emboli. Extensive left hilar mass causing atelectasis of the left upper lobe. Enlarged from the previous CT scan. Deviation and compression of the left main pulmonary artery by this extensive mass but there are no emboli. Chest X-Ray 06/27/17 09:05 IMPRESSION: No interval change in the chest with large left perihilar mass. Assessment & Plan - Diagnosis (1) Lung cancer Qualifiers: Laterality: left Lung location: unspecified part of lung Qualified Code(s ): C34.92 - Malignant neoplasm of unspecified part of left bronchus or lung Is this a current diagnosis for this admission?: Yes Plan: XRT completed (2) Acute and chronic respiratory failure ([id number]) Qualifiers: Respiratory failure complication: hypoxia Qualified Code(s): J96.21 - Acute and chronic respiratory failure with hypoxia Is this a current diagnosis for this admission?: Yes Plan: continue current rx,On 5 L still desaturates and rest intermittently Will initiate trial of BiPAP (3) COPD (chronic obstructive pulmonary disease) with emphysema Qualifiers: Emphysema type: unspecified Qualified Code(s): J43.9 - Emphysema, unspecified Is this a current diagnosis for this admission?: Yes
--- NOTE | 2017-07-01 14:28 | PDOC PROGRESS REPORT ---
Subjective Progress Note for:: 07/01/17 Subjective:: C/o wheezing and shortness of breath. Still desarturates on O2 %L NC. Seen by Dr. Soler of pulmonology today and recommend trial of BiPAP overnight with plans to d/c home on one. Has cough, but nonproductive. Receiving last XRT dose yesterday. Denies fever or chills, no nausea or vomiting, no chest pain or palpitations. Reason For Visit: WORSENING DYSPNEA LUNG CANCER Physical Exam Vital Signs: Temp Pulse Resp BP Pulse Ox 98.5 F 126 H 18 119/71 95 07/01/17 13:27 07/01/17 13:27 07/01/17 13:27 07/01/17 13:27 07/01/17 13:27 Pulse Oximeter Continuous Start: 06/20/17 12: 07 Freq: RTQ4 Status: Active Document 07/01/17 12:19 HCR (Rec: 07/01/17 13:05 HCR [email or web address]) Pulse Oximetry Assessment Oxygen Saturation (92-100) 92 Oxygen Flow Rate (L/min) 4 Oxygen Delivery Method Nasal Cannula Equipment Usage Equipment in Use Continuous SpO2 Machine # 13 Intake & Output 06/30/17 07/01/17 07/02/17 06:59 06:59 06:59 Intake Total 1174 1433 Balance 1174 1433 Weight 99.6 kg 98.7 kg GEN: NAD, well-developed, well-nourished CV: RRR, NL S1S2 LUNGS: Wheezing/rhonchi bilaterally ABDOMEN Soft, NT, +BS EXTERMITIES: No e/c/c NEURO: Alert, oriented 3, nonfocal Results Laboratory Results: 06/30/17 04:08 06/30/17 04:08 06/20/17 04:12 NT-Pro-B Natriuret Pep 243 Impressions: Chest/Abdomen CTA 06/19/17 11:55 IMPRESSION: No pulmonary emboli. Extensive left hilar mass causing atelectasis of the left upper lobe. Enlarged from the previous CT scan. Deviation and compression of the left main pulmonary artery by this extensive mass but there are no emboli. Chest X-Ray 06/27/17 09:05 IMPRESSION: No interval change in the chest with large left perihilar mass. Assessment & Plan - Plan Summary Plan Summary: (1) Lung cancer Qualifiers: Laterality: left Lung location: unspecified part of lung Qualified Code(s ): C34.92 - Malignant neoplasm of unspecified part of left bronchus or lung Is this a current diagnosis for this admission?: Yes Plan: At minimum has locally advanced lung cancer, however full staging scans not available. States that she has received immunotherapy previously - Currently receiving XRT and Cytoxan - Finish radiation 06/30/17 - Followed locally and with oncology at [facility] -Likely discharge home in a.m. with BiPAP if stable (2) Acute and chronic respiratory failure ([id number]) Qualifiers: Respiratory failure complication: hypoxia Qualified Code(s): J96.21 - Acute and chronic respiratory failure with hypoxia Is this a current diagnosis for this admission?: Yes Plan: Due to lung cancer and COPD - Continue XRT, supplemental O2, breathing treatments; still desarturates on 5L O2 -- trial of BiPAP per airport planner (3) Dyspnea Qualifiers: Dyspnea type: dyspnea on exertion Qualified Code(s): R06.09 - Other forms of dyspnea Is this a current diagnosis for this admission?: Yes Plan: As above. (4) Tachycardia Is this a current diagnosis for this admission?: Yes Plan: Improved, on higher doses of Cardizem (120mg BID)
[2017-07-01] MEDS: MONTELUKAST SODIUM 10 MG TABLET PO SCH (18:05)
[2017-07-01] MEDS: AMITRIPTYLINE HCL 10 MG TABLET PO SCH (18:07)
[2017-07-01] MEDS: PROCHLORPERAZINE MALEATE 10 MG TABLET PO PRN (19:48)
[2017-07-01] MEDS: NYSTATIN 500000 UNIT/5 ML UDCUP PO PRN (20:40)
[2017-07-02] MEDS: LEVALBUTEROL HCL NEB 1.25 MG/3 ML AMPUL NEB SCH ×4 (00:20→12:33)
[2017-07-02] MEDS: FLUTICASONE NASAL SPRAY 50 MCG/SPRY 120 SPRAY/16 GM NASL SCH (04:53)
[2017-07-02] MEDS: ASPIRIN 325 MG TABLET PO SCH (04:55)
[2017-07-02] MEDS: GUAIFENESIN 600 MG TABLET.SA PO SCH (04:56)
[2017-07-02] MEDS: DOCUSATE SODIUM 100 MG CAPSULE PO SCH (04:56)
[2017-07-02] MEDS: DILTIAZEM HCL 120 MG CAP.SR.24H PO SCH (04:57)
[2017-07-02] MEDS: EZETIMIBE 10 MG TABLET PO SCH (04:57)
[2017-07-02] MEDS: BUDESONIDE/FORMOTEROL 160-4.5 MCG 60 PUFF/6 GM MDI IH SCH (04:57)
[2017-07-02] MEDS: LANSOPRAZOLE 30 MG TAB.RAP.DR PO SCH (04:58)
[2017-07-02] MEDS: ROFLUMILAST 500 MCG TABLET PO SCH (04:58)
[2017-07-02] MEDS: FUROSEMIDE 20 MG TABLET PO SCH (04:59)
[2017-07-02] MEDS: THEOPHYLLINE ANHYDROUS 300 MG TAB.SR.12H PO SCH (04:59)
[2017-07-02] MEDS: MIRABEGRON 50 MG PO SCH (05:00)
[2017-07-02] MEDS: FOLIC ACID 1 MG TABLET PO SCH (05:00)
[2017-07-02] MEDS: BUSPIRONE HCL 10 MG TABLET PO SCH (05:00)
[2017-07-02] MEDS: METHYLPREDNISOLONE INJ 40 MG/1 ML SDV IV SCH ×2 (05:24→13:32)
[2017-07-02] MEDS: ACETYLCYSTEINE 20% SOLN 800 MG/4 ML VIAL.NEB NEB SCH (08:30)
[2017-07-02] MEDS: ENOXAPARIN SODIUM INJ 40 MG/0.4 ML DISP.SYRIN SUBCUT SCH (09:44)
[2017-07-02 12:25] VITALS: BP 124/76
--- NOTE | 2017-07-02 14:03 | PDOC DISCHARGE SUMMARY ---
General - Admit/Disc Date/PCP Admission Date/Primary Care Provider: 06/19/17 15:04 HARRIET MAIER MD Discharge Date: 07/02/17 - Additional Information Discharge Diet: As Tolerated Prescriptions: Diltiazem HCl [Diltiazem 12Hr ER] 120 mg PO Q12 30 Days #60 cap.er.12h Guaifenesin [Mucinex Sr 600 mg Tablet.sa] 1,200 mg PO Q12@0500,1700 #1 tablet.sa Prednisone [Deltasone 10 mg Tablet] 20 mg PO DAILY 30 Days #60 tablet Home Medications: Acetylcysteine [Mucomist 20% Soln 800 mg/4 mL] 1 ml IH RTQ12 06/19/17 Albuterol Sulfate [Albuterol Sulfate 2.5mg/3 mL] 1 vial IH RTQ6HP PRN 06/19/17 Albuterol Sulfate [Albuterol Sulfate 2.5mg/3 mL] 3 ml IH RTQ12 06/19/17 Albuterol Sulfate [Proair HFA] 2 puff IH Q4HP PRN 06/19/17 Amitriptyline HCl [Elavil 10 mg Tablet] 10 mg PO QHS 06/19/17 Aspirin [Aspirin 325 mg Tablet] 325 mg PO BID 06/19/17 Benzonatate [Tessalon Perles 100 mg Capsule] 200 mg PO Q8HP PRN 06/19/17 Budesonide/Formoterol Fumarate [Symbicort HFA 160-4.5 mcg Inhaler 6 gm] 2 puff IH Q12@0530,1730 06/19/17 Buspirone HCl [Buspar 10 mg Tablet] 10 mg PO BID 06/19/17 Cyclophosphamide [Cytoxan 50 mg Tablet] 100 mg PO MOTUWETHFR@0800 06/19/17 Ezetimibe [Zetia 10 mg Tablet] 10 mg PO DAILY 06/19/17 Fluticasone Propionate [Flonase Nasal [place] 50 Mcg/[place] 16 gm] 2 sprays NASL Q12 06/19/17 Folic Acid [Folvite 1 mg Tablet] 1 mg PO DAILY 06/19/17 Furosemide [Lasix 20 mg Tablet] 20 mg PO QAM 06/19/17 Hydroxyzine HCl [Atarax 25 mg Tablet] 1 tab PO Q6HP PRN 06/19/17 Mirabegron [Myrbetriq] 50 mg PO DAILY 06/19/17 Montelukast Sodium [Singulair 10 mg Tablet] 10 mg PO QHS 06/19/17 Nystatin [Mycostatin 500,000 Unit/5 ml Susp Udcup] 500,000 unit PO QIDP PRN 04/07 Ondansetron [Zofran Odt] 8 mg PO MOTUWETHFR@0800 06/19/17 Oxycodone HCl/Acetaminophen [Percocet 5-325 mg Tablet] 1 tab PO Q4HP PRN Prochlorperazine Maleate [Compazine 10 mg Tablet] 10 mg PO BIDP PRN 06/19/17 Roflumilast [Daliresp 500 mcg Tablet] 500 mcg PO DAILY 06/19/17 Theophylline Anhydrous [Hans-Dur 300 mg Tab.sr] 300 mg PO Q12A 06/19/17 Tiotropium [place] [Spiriva Handihaler 18 mcg/dose (30 Dose)] 1 cap IH DAILY 04/07 Diltiazem HCl [Diltiazem 12Hr ER] 120 mg PO Q12 30 Days #60 cap.er.12h 07/02/17 Guaifenesin [Mucinex Sr 600 mg Tablet.sa] 1,200 mg PO Q12@0500,1700 #1 tablet.sa 07/02/17 Prednisone [Deltasone 10 mg Tablet] 20 mg PO DAILY 30 Days #60 tablet 07/02/17 History of Present Illness History of Present Illness: MIKI FROST is a 62 year old female past medical history of COPD Chronic hypoxic respiratory failure on 4 L of oxygen by nasal cannula GERD Osteoporosis Hypertension Hyperlipidemia Generalized anxiety disorder Non-small cell left lung knows in November 2016 on chemo and radiation. Her oncologist is Dr. Kyrie Bernard in [place]. Phone #[phone]. Her mine wirer is Dr. Soler. She presented to the hospital 06/19/17 with worsening shortness of breath with severe dyspnea on exertion. She had been taking chemo and radiation. CT of the chest with contrast showed extensive hilar mass causing atelectasis of the left upper lobe which looked larger compared to prior CT scan. Deviation and compression of the left main pulmonary artery by extensive mass was seen. No pulmonary emboli identified. Echocardiogram from October 2016 showed mild to moderate diastolic dysfunction no significant valvular abnormalities. Hospital Course Hospital Course: Patient was admitted to hospitalist service and managed as follows: (1) Acute and chronic respiratory failure ([id number]) Qualifiers: Respiratory failure complication: hypoxia Qualified Code(s): J96.21 - Acute and chronic respiratory failure with hypoxia Is this a current diagnosis for this admission?: Yes Plan: Due to lung cancer and COPD -Completed XRT, continue home supplemental O2, breathing treatments; --And trial of BiPAP last night per mine wirer's recommendation patient excited about going home with one. --Receive IV Solu-Medrol in the hospital. Will discharge on prednisone 20 mg daily until he follows up with Dr. Soler in clinic per his recommendation--of note is that patient was chronically on 10 mg daily. (2) Lung cancer Qualifiers: Laterality: left Lung location: unspecified part of lung Qualified Code(s ): C34.92 - Malignant neoplasm of unspecified part of left bronchus or lung Is this a current diagnosis for this admission?: Yes Plan: At minimum thought to have locally advanced lung cancer, however full staging scans not available. States that she has received immunotherapy previously. -Had radiation therapy was discontinued daily and it ended on 06/30/17 - She will follow-up with the oncologist for further evaluation and to continue her chemotherapy. (3) Dyspnea Qualifiers: Dyspnea type: dyspnea on exertion Qualified Code(s): R06.09 - Other forms of dyspnea Is this a current diagnosis for this admission?: Yes Plan: As above. (4) Tachycardia Is this a current diagnosis for this admission?: Yes Plan: Improved, was placed on Cardizem and required a higher dose (120mg BID). Physical Exam Vital Signs: Temp Pulse Resp BP Pulse Ox 98.9 F 110 H 18 113/70 94 07/02/17 07:19 07/02/17 08:38 07/02/17 08:38 07/02/17 07:19 07/02/17 08:38 Pulse Oximeter Continuous Start: 06/20/17 12: 07 Freq: RTQ4 Status: Active Document 07/02/17 08:38 JDR (Rec: 07/02/17 08:43 [email or web address] [email or web address]) Pulse Oximetry Assessment Oxygen Saturation (92-100) 94 Oxygen Flow Rate (L/min) 4 Oxygen Delivery Method Nasal Cannula Equipment Usage Equipment in Use Continuous SpO2 Machine # 13 Intake & Output 07/01/17 07/02/17 07/03/17 06:59 06:59 06:59 Intake Total 1433 712 Balance 1433 712 Weight 98.7 kg 99.5 kg GEN: NAD, well-developed, well-nourished CV: RRR, NL S1S2 LUNGS: Wheezing/rhonchi bilaterally ABDOMEN Soft, NT, +BS EXTERMITIES: No e/c/c NEURO: Alert, oriented 3, nonfocal Results Laboratory Results: 06/30/17 04:08 06/30/17 04:08 06/20/17 04:12 NT-Pro-B Natriuret Pep 243 Impressions: Chest/Abdomen CTA 06/19/17 11:55 IMPRESSION: No pulmonary emboli. Extensive left hilar mass causing atelectasis of the left upper lobe. Enlarged from the previous CT scan. Deviation and compression of the left main pulmonary artery by this extensive mass but there are no emboli. Chest X-Ray 06/27/17 09:05 IMPRESSION: No interval change in the chest with large left perihilar mass. Qualifiers - * PATEINT BEING DISCHARGED WITH ANY OF THE FOLLOWING DIAGNOSIS?: No
--- NOTE | 2017-07-02 16:38 | PDOC PROGRESS REPORT ---
Subjective Progress Note for:: 07/02/17 Subjective:: unchanged Reason For Visit: WORSENING DYSPNEA LUNG CANCER Physical Exam Vital Signs: Temp Pulse Resp BP Pulse Ox 98.9 F 108 H 18 124/76 96 07/02/17 12:00 07/02/17 12:35 07/02/17 12:35 07/02/17 12:00 07/02/17 12:35 Pulse Oximeter Continuous Start: 06/20/17 12: 07 Freq: RTQ4 Status: Discharge Document 07/02/17 12:35 JDR (Rec: 07/02/17 13:48 [email or web address] [email or web address]) Pulse Oximetry Assessment Oxygen Saturation (92-100) 96 Oxygen Flow Rate (L/min) 4 Oxygen Delivery Method Nasal Cannula Equipment Usage Equipment in Use Continuous SpO2 Machine # 13 Intake & Output 07/01/17 07/02/17 07/03/17 06:59 06:59 06:59 Intake Total 1433 712 265 Balance 1433 712 265 Weight 98.7 kg 99.5 kg General appearance: PRESENT: cooperative, disheveled, obese Head exam: PRESENT: atraumatic, normocephalic Eye exam: PRESENT: conjunctiva pale, EOMI. ABSENT: nystagmus, periorbital swelling, scleral icterus Mouth exam: PRESENT: dry mucosa, neck supple, tongue midline Neck exam: ABSENT: carotid bruit, JVD, lymphadenopathy, thyromegaly, tracheal deviation, tracheostomy Respiratory exam: PRESENT: decreased breath sounds, prolonged expiratory phas, rales, rhonchi, symmetrical, wheezes. ABSENT: stridor Cardiovascular exam: PRESENT: RRR, +S1, +S2, tachycardia Pulses: PRESENT: normal radial pulses GI/Abdominal exam: PRESENT: diminished bowel sounds, soft Extremities exam: ABSENT: calf tenderness, clubbing Musculoskeletal exam: ABSENT: deformity, dislocation Neurological exam: PRESENT: alert, awake Psychiatric exam: PRESENT: normal mood Skin exam: PRESENT: dry, warm Results Laboratory Results: 06/30/17 04:08 06/30/17 04:08 06/20/17 04:12 NT-Pro-B Natriuret Pep 243 Impressions: Chest/Abdomen CTA 06/19/17 11:55 IMPRESSION: No pulmonary emboli. Extensive left hilar mass causing atelectasis of the left upper lobe. Enlarged from the previous CT scan. Deviation and compression of the left main pulmonary artery by this extensive mass but there are no emboli. Chest X-Ray 06/27/17 09:05 IMPRESSION: No interval change in the chest with large left perihilar mass. Assessment & Plan - Diagnosis (1) Lung cancer Qualifiers: Laterality: left Lung location: unspecified part of lung Qualified Code(s ): C34.92 - Malignant neoplasm of unspecified part of left bronchus or lung Is this a current diagnosis for this admission?: Yes Plan: XRT completed (2) Acute and chronic respiratory failure ([id number]) Qualifiers: Respiratory failure complication: hypoxia Qualified Code(s): J96.21 - Acute and chronic respiratory failure with hypoxia Is this a current diagnosis for this admission?: Yes Plan: felt better,slept better with cpap (3) COPD (chronic obstructive pulmonary disease) with emphysema Qualifiers: Emphysema type: unspecified Qualified Code(s): J43.9 - Emphysema, unspecified Is this a current diagnosis for this admission?: Yes Plan: Unchanged
== END 2017-07-02 13:54 | disposition home or self-care (01) | DRG 189 ==
LOC: ER 11:16 → EH 15:04 → 3N 22:10
PROVIDERS: ADMIT Internal Medicine; ATTEND Internal Medicine
PROC: 3E0F73Z Introduction of Anti-inflammatory into Respiratory Tract, Via Natural or Artificial Opening (ICD-10-PCS; principal; 2017-06-20)
PROC: 5A09457 Assistance with Respiratory Ventilation, 24-96 Consecutive Hours, Continuous Positive Airway Pressure (ICD-10-PCS; 2017-07-01)
DX: J96.21 Acute and chronic respiratory failure with hypoxia (principal); C34.12 Malignant neoplasm of upper lobe, left bronchus or lung; I50.32 Chronic diastolic (congestive) heart failure; M19.90 Unspecified osteoarthritis, unspecified site; F41.1 Generalized anxiety disorder; F32.9 Major depressive disorder, single episode, unspecified; E11.9 Type 2 diabetes mellitus without complications; K21.9 Gastro-esophageal reflux disease without esophagitis; M81.0 Age-related osteoporosis without current pathological fracture; E78.5 Hyperlipidemia, unspecified; I11.0 Hypertensive heart disease with heart failure; J43.9 Emphysema, unspecified; I48.91 Unspecified atrial fibrillation; Z99.81 Dependence on supplemental oxygen; Z79.899 Other long term (current) drug therapy; Z88.1 Allergy status to other antibiotic agents; Z88.8 Allergy status to other drugs, medicaments and biological substances; Z87.442 Personal history of urinary calculi; Z87.891 Personal history of nicotine dependence; Z79.82 Long term (current) use of aspirin; Z88.6 Allergy status to analgesic agent; Z88.0 Allergy status to penicillin; Z88.2 Allergy status to sulfonamides; R00.0 Tachycardia, unspecified
CPT/HCPCS: 36415; 71045; 71275; 80048; 80053; 80198; 82550; 82553; 83605; 83735; 83880; 84100; 84439; 84443; 84484; 85025; 85027; 85379; 87040; 93005; 93010; 94010; 94640; 94660; 94762; 96374; 96375; 99285; J1200; J1650; J2920; J2930; J3490; J7614; S0028; S0119; S0183